=== PATIENT | male | born 1985 | race Caucasian/White ===

== ENCOUNTER 2016-10-24 08:31 | Inpatient (IN) | payer MEDICAID, OTHER ==
[2016-10-24] MEDS ORDERED: ONDANSETRON ODT 4 MG TAB PO STA (09:22)
[2016-10-24] MEDS ORDERED: ACETAMINOPHEN TAB 325 MG TAB PO STA (09:22)
--- NOTE | 2016-10-24 09:22 | ED ---
Psych HPI - General Chief Complaint: Psychiatric Symptoms Stated Complaint: mental health Time Seen by Provider: 10/24/16 08:46 Source: patient, RN notes reviewed Mode of arrival: ambulatory - History of Present Illness Initial Comments: Patient is a 30-year-old male presents to the emergency room for psychiatric evaluation. Patient states he has history depression. Patient states that he has been following up on and off with a counselor/psychiatrist. Patient states he hasn't followed up with anyone in a very long time. Patient states that he has a history of heroin abuse. Patient states that he was clean for a few years and then relapsed a few weeks ago. Patient states his family does not want talk to him anymore. Patient states he has been getting increasingly depressed over the past 3 weeks and is having thoughts on not wanting to live anymore. Patient states he's having thoughts on trying to overdose on heroin. Patient denies homicidal ideations. Patient denies visual or auditory hallucinations. Patient states the last time he did hear when was yesterday. Patient denies taking any other illegal drugs. Patient does state he smokes about a pack a day. Patient denies smoking marijuana. Patient denies alcohol use. Patient states he has history of seizures. Patient denies abdominal pain , chest pain, shortness of breath. Patient does admit he has a headache and nausea from withdrawing from heroin. - Related Data Home Medications Medication Instructions Recorded Confirmed Isoniazid 300 mg PO DAILY 10/24/16 10/24/16 levETIRAcetam [Keppra] 500 mg PO BID 10/24/16 10/24/16 Allergies Allergy/AdvReac Type Severity Reaction Status Date / Time No Known Allergies Allergy Verified 10/24/16 08:55 Review of Systems ROS Statement: Those systems with pertinent positive or pertinent negative responses have been documented in the HPI. ROS Other: All systems not noted in ROS Statement are negative. Past Medical History Past Medical History: GERD/Reflux, Seizure Disorder Additional Past Medical History / Comment(s): polysubstance drug abuse, smoker History of Any Multi-Drug Resistant Organisms: None Reported Date of last positivie culture/infection: 2010 MDRO Source:: RIGHT FOREARM Past Surgical History: Unable to Obtain Additional Past Surgical History / Comment(s): bilateral elbows Past Psychological History: No Psychological Hx Reported Smoking Status: Current every day smoker Past Alcohol Use History: None Reported Additional Past Alcohol Use History / Comment(s): Patient is a smoker of 1 pack or more per day since he was 15 years of age. He denies any alcohol use. Patient has history of polysubstance abuse and has been clean of heroin for 50 days until he used twice over the past 2 weeks. Patient is single. He has 1 daughter. Past Drug Use History: None Reported - Past Family History Father Additional Family Medical History / Comment(s): Patient states he does not know anything about his father. Mother Family Medical History: Hypertension Additional Family Medical History / Comment(s): Mother has history of hypertension and is age 53. Patient has 2 brothers and 2 sisters with no major medical problems. General Exam - General Exam Comments Initial Comments: Sitting in exam room in no acute distress. Limitations: no limitations General appearance: alert, in no apparent distress Head exam: Present: atraumatic, normocephalic, normal inspection Eye exam: Present: normal appearance ENT exam: Present: normal exam Neck exam: Present: normal inspection Respiratory exam: Present: normal lung sounds bilaterally. Absent: respiratory distress Cardiovascular Exam: Present: regular rate, normal rhythm, normal heart sounds GI/Abdominal exam: Present: soft, normal bowel sounds. Absent: distended, tenderness, guarding, rebound, rigid Extremities exam: Present: normal inspection Back exam: Present: normal inspection Neurological exam: Present: alert, oriented X3, CN II-XII intact, normal gait Psychiatric exam: Present: normal affect, depressed Skin exam: Present: warm, dry, intact, normal color. Absent: rash Course Vital Signs 10/24/16 08:46 Temperature 98.1 F Pulse Rate 97 Respiratory 18 Rate Blood Pressure 154/86 O2 Sat by Pulse 97 Oximetry Medical Decision Making - Medical Decision Making Patient is a 30-year-old male since emergency room for psych evaluation. Patient medically cleared to be evaluated by psych. Patient evaluated by psych and is currently pending admission. - Lab Data Lab Results 10/24/16 Range/Units 09:15 Urine Opiates Screen Detected H (NotDetected) Ur Oxycodone Screen Not Detected (NotDetected) Urine Methadone Screen Not Detected (NotDetected) Ur Propoxyphene Screen Not Detected (NotDetected) Ur Barbiturates Screen Not Detected (NotDetected) U Tricyclic Antidepress Not Detected (NotDetected) Ur Phencyclidine Scrn Not Detected (NotDetected) Ur Amphetamines Screen Not Detected (NotDetected) U Methamphetamines Scrn Not Detected (NotDetected) U Benzodiazepines Scrn Not Detected (NotDetected) Urine Cocaine Screen Not Detected (NotDetected) U Marijuana (THC) Screen Not Detected (NotDetected) Disposition Clinical Impression: Heroin abuse, Depression Disposition: ADMITTED IP TO THIS [facility] Condition: Stable Decision Date: 10/24/16
[2016-10-24] MEDS ORDERED: MAGNESIUM HYDROXIDE 2,400 MG/10 ML CUP PO PRN (12:27)
[2016-10-24 13:02] VITALS: BMI 27.1
[2016-10-24] MEDS: NICOTINE 21MG/24HR PATCH TRANSDERM SCH (15:10)
[2016-10-24] MEDS: LORazepam 1 MG TAB PO PRN (15:11)
[2016-10-24] MEDS: ACETAMINOPHEN TAB 325 MG TAB PO PRN (15:13)
[2016-10-24] MEDS: MAG HYDROX/AL HYDROX/SIMETH 30 ML CUP PO PRN (15:16)
[2016-10-24] MEDS: ONDANSETRON 4 MG TAB PO PRN (19:13)
[2016-10-24] MEDS: levETIRAcetam 500 MG TAB PO SCH (20:18)
[2016-10-25] MEDS: MAG HYDROX/AL HYDROX/SIMETH 30 ML CUP PO PRN (04:27)
[2016-10-25] MEDS: LORazepam 1 MG TAB PO PRN ×2 (04:27→13:12)
[2016-10-25] MEDS: ACETAMINOPHEN TAB 325 MG TAB PO PRN ×3 (04:28→17:42)
[2016-10-25] MEDS ORDERED: ISONIAZID 300 MG TABLET PO SCH (09:00)
[2016-10-25] MEDS: levETIRAcetam 500 MG TAB PO SCH ×2 (09:14→20:36)
[2016-10-25] MEDS: NICOTINE 21MG/24HR PATCH TRANSDERM SCH (09:16)
[2016-10-25 09:25] LABS: Basophils # (A) 0.1 k/uL (0-0.2); Basophils % (A) 1 %; CH 31.9; CHCM 34.8; Eosinophils # (A) 0.2 k/uL (0-0.7); Eosinophils % (A) 2 %; HDW 2.68; HGB 17.2 gm/dL (13.0-17.5); Luc # (Auto) 0.24; Luc % (Auto) 2; Lymphocytes # (A) 2.6 k/uL (1.0-4.8); Lymphocytes % (A) 25 %; MCH 31.1 pg (25.0-35.0); MCHC 33.8 g/dL (31.0-37.0); Mean Platelet Volume 7.3; Monocytes # (A) 0.5 k/uL (0-1.0); Monocytes % (A) 5 %; Neutrophils # (A) 7.1 k/uL (1.3-7.7); Neutrophils % (A) 67 %; RBC 5.54 m/uL (4.30-5.90); RDW 12.7 % (11.5-15.5); WBC 10.6 k/uL (3.8-10.6); WBC (Perox) 10.37
[2016-10-25 09:26] LABS: ALT 119 U/L (21-72); AST 73 U/L (17-59); Alkaline Phosphatase 55 U/L (38-126); Anion Gap 13 mmol/L; Blood Urea Nitrogen 18 mg/dL (9-20); Calcium 10.1 mg/dL (8.4-10.2); Carbon Dioxide 23 mmol/L (22-30); Chloride 105 mmol/L (98-107); Glucose 95 mg/dL (74-99); Non-African American GFR(MDRD) >60 (>60 ml/min/1.73 sqM); Potassium 5.2 mmol/L (3.5-5.1); Sodium 141 mmol/L (137-145); Total Bilirubin 2.1 mg/dL (0.2-1.3); Total Protein 8.7 g/dL (6.3-8.2)
[2016-10-25] MEDS: ISONIAZID 100 MG TABLET PO SCH (10:05)
[2016-10-25] MEDS ORDERED: cloNIDine HCL 0.2 MG TAB PO STA (10:40)
--- NOTE | 2016-10-25 11:40 | P.HP ---
Psychiatric H&P - . H&P Date: 10/25/16 History & Physical: IDENTIFYING DATA: Mr. Geller is a 30-year-old single male who has history of opiate use disorder.. HISTORY OF PRESENT ILLNESS: He presented to unit at the behest of his sister who completed a Petition/Application for Hospitalization. On the Petition she wrote "using heavy drugs, has attempted to commit suicide by overdose. I have been in contact with him for 2 weeks and his only gotten worse. He is currently homeless, and has lost the will to fight." He stated that he relapsed to heroin 1 month ago. He came to [place] from [facility] in order to gain readmission to the [facility]. He was in this program in 2013 was alleged that he wasable to remain abstinent from heroin for "about 2 years". He contacted the program but could not be admitted until he "stopped using heroin." He stated that he was unable to detox himself. He complained of feeling depressed and frustrated by his inability to stop the use of heroin. He talked about using heroin off and on since he was in his early 20s. His longest period of sobriety was 2 years after anticipation and the [facility] program. He stated he was abstinence for about 2 months before the recent relapse. He injects heroin on a daily basis spending approximately $ 50 per day. 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 He described the of a female friend from a heroin"a couple weeks ago" overdose as a contributor to his depression and feelings of hopelessness. He described thoughts of suicide but denied current suicidal intent or plan. He described depressive cognitions including hopelessness, helplessness and worthlessness. He denied psychotic symptoms such as auditory or visual hallucinations, ideas reference, thought insertion, thought broadcasting or thought control. He complained of anxiety that has worsened with the opiate withdrawal symptoms. He denied symptoms suggestive of panic attack. He denied obsessions or compulsions. During interview he was restless and complained of opiate withdrawal symptoms. PAST PSYCHIATRIC HISTORY: The only other psychiatric admission was to this unit in August 2015. His presentation was similar to the present. He complained of relapse to heroin after a two-month period of abstinence. He was depressed and having thoughts of overdosing on heroin. PAST MEDICAL HISTORY: He has a history of a seizure disorder treated with Keppra 500 mg by mouth twice a day. He does not remember when he last had a seizure. Aphysician her start isoniazid 300 mg per day. He does not remember the reason the physician prescribed the isoniazid. He has a history of hepatitis C (hepatitis A and B antibodies were negative). His total bilirubin , AST, ALT and alkaline phosphatase are elevated. His TSH was also low at 0.197. ALLERGIES: NO KNOWN DRUG ALLERGIES. SUBSTANCE USE HISTORY: He began using heroin when he was in his early 20s. He is had several relapses and remissions with one formal substance abuse treatment episode at [facility] in 2016. He moved to [place] after discharge from [facility] and he lived in a three-quarter house. His longest period of abstinence was following this participation in the [facility] program at [facility]. He denied the use of alcohol and marijuana. He has has a history of abuse of cocaine and benzodiazepines. His urine drug screen was positive for opiates. FAMILY PSYCHIATRIC/SUBSTANCE USE HISTORY: His father had history of alcohol use problems and he "believes" that his mother had a problem with "pills" in the past. He denied a family history of mental illness. LEGAL HISTORY: He denied that he is on probation, parole or has pending charges. According to the [facility] probate court docket he has convictions for malicious use of telecommunication and domestic violence ( second offense). SOCIAL HISTORY: He stated that he was born and raised in [place]. His parents are . He has 2 brothers and 2 sisters. He graduated from high school and attended classes and [employer] towards a clinical social worker's degree. He did not complete the program. He is single and has one child out of wedlock who is in the care of his aunt. He stated the baby's mother abandoned child and he is unable to care for her child. He is currently unemployed and has no stable income. He earns money by "odd jobs" working intermittently with for family or friends. He last held gainful employment when he was living in [place] MENTAL STATUS EXAM: He presented as a tall well-nourished male with male pattern balding. He was casually dressed. He attended to the interview and made eye contact. He had no distinguishing features or prominent physical abnormalities. He had a distressed facial expression. He was alert and oriented to person, place and time. He sniffled during the interview and frequently shifted his position in a chair. His speech was spontaneous with normal rate, rhythm and volume. He had no articulation difficulties. His affect was dysphoric. He denied current suicidal plan or intent. He denied homicidal ideation. He expressed depressive cognitions including hopelessness, helplessness and worthlessness. He ruminated about his substance use and his inability to maintain abstinence. He denied obsessions or compulsions. He did not express ideas of reference or paranoid ideation. His thinking was abstract and associations were coherent, logical and goal directed. He did not demonstrate perseveration, neologisms or blocking. He denied hallucinations and did not appear to be responding to internal stimuli. Global impression of intellect is average to above. He is aware of his mental health problems and his need for substance use treatment. The Clinical Opiate Withdrawal Scale his score was 10 consistent with mild symptoms of opiate withdrawal STRENGTHS: Supportive family, interest in substance abuse treatment, stable health. WEAKNESSES: Ongoing substance use problem, lack of income, lack of stable housing. IMPRESSION: Is a 30-year-old male who has a history of opiate use disorder. He presented to the unit with suicidal ideation and feelings of hopelessness and helplessness in relationship to relapse to heroin. He has mild to moderate opiate withdrawal symptoms. He is denying current suicidal ideation, plan or intent. He is interested in substance abuse treatment and has made inquiries into an [facility] and other [facility]. He will need a medical consult for evaluation of elevated liver functions and increased TSH as well as need for isoniazid. Once his opiate withdrawal symptoms wally he should be evaluated for need for antidepressant treatment. Social work to assist in referral to a substance abuse treatment program. PRINCIPLE DIAGNOSIS: Opiate withdrawal, opiate use disorder, opiate induced mood disorder, rule out major depressive disorder recurrent, lack of housing, lack of employment, lack of income RECOMMENDATION: Continue admissions inpatient psychiatric unit for treatment of opiate withdrawal, depression and suicidal ideation.. Begin clonidine 20 mg 4 times a day for treatment of opiate withdrawal symptoms and adjust the dose based upon tolerance and effectiveness. Continue lorazepam 1 mg 3 times a day when necessary for anxiety associated with the opiate withdrawal. Zofran 4 mg when necessary for nausea. Continue Keppra 500 mg by mouth twice a day for she is disorder. Continue isoniazid 300 mg by mouth daily until evaluated by human resources consultant np. Evaluate clinical status response to treatment daily basis. Encourage participation in therapeutic groups and activities. Social work to assist with arranging an appropriate aftercare including referral to a [facility]. Allergies Allergy/AdvReac Type Severity Reaction Status Date / Time No Known Allergies Allergy Verified 10/24/16 08:55 Vital Signs Temp 97.9 F 10/25/16 07:05 Pulse 111 H 10/25/16 07:05 Resp 18 10/25/16 07:05 BP 156/88 10/25/16 07:05 Pulse Ox 97 10/24/16 12:32 Intake & Output 10/24/16 10/25/16 10/25/16 18:59 06:59 18:59 Weight 95.736 kg Laboratory Last Values Urine Opiates Screen Detected (NotDetected) H 10/24/16 09:15 Ur Oxycodone Screen Not Detected (NotDetected) 10/24/16 09:15 Urine Methadone Screen Not Detected (NotDetected) 10/24/16 09:15 Ur Propoxyphene Screen Not Detected (NotDetected) 10/24/16 09:15 Ur Barbiturates Screen Not Detected (NotDetected) 10/24/16 09:15 U Tricyclic Antidepress Not Detected (NotDetected) 10/24/16 09:15 Ur Phencyclidine Scrn Not Detected (NotDetected) 10/24/16 09:15 Ur Amphetamines Screen Not Detected (NotDetected) 10/24/16 09:15 U Methamphetamines Scrn Not Detected (NotDetected) 10/24/16 09:15 U Benzodiazepines Scrn Not Detected (NotDetected) 10/24/16 09:15 Urine Cocaine Screen Not Detected (NotDetected) 10/24/16 09:15 U Marijuana (THC) Screen Not Detected (NotDetected) 10/24/16 09:15 10/25/16 09:03 10/25/16 09:59 10/25/16 10:30 10/25/16 11:07
[2016-10-25] MEDS: cloNIDine HCL 0.1 MG TAB PO SCH ×3 (13:09→21:42)
--- NOTE | 2016-10-25 14:07 | P.CONS ---
History of Present Illness - Reason for Consult Consult date: 10/25/16 Medical management - History of Present Illness This is a 30-year-old male. He does not have a primary care physician. He has a past medical history for GERD and takes omeprazole, seizure disorder and is on Keppra, MRSA skin and soft tissue infection to the right forearm 2010, hepatitis C untreated, latent TB, polysubstance abuse, tobacco use and dependence, anxiety, depression, PTSD. Patient states that he has been clean from heroin for one year and started using heroin every day. He denies following with a psychiatrist or counselor. He states that his sister brought him into [facility] emergency center for evaluation. He has been admitted to the mental health unit. TSH 0.197 and free T4 ordered. Urine drug screen was positive for opiates. Liver function tests elevated and will be repeated tomorrow. Review of Systems All systems: negative Constitutional: Denies chills, Denies fever Eyes: denies blurred vision, denies pain Ears, nose, mouth and throat: Denies headache, Denies sore throat Cardiovascular: Denies chest pain, Denies shortness of breath Respiratory: Denies cough Gastrointestinal: Denies abdominal pain, Denies diarrhea, Denies nausea, Denies vomiting Musculoskeletal: Denies myalgias Integumentary: Denies pruritus, Denies rash Neurological: Denies numbness, Denies weakness Psychiatric: Reports depression, Denies anxiety Endocrine: Denies fatigue, Denies weight change Past Medical History Past Medical History: GERD/Reflux, Seizure Disorder Additional Past Medical History / Comment(s): polysubstance drug abuse, hepatitis C, latent TB History of Any Multi-Drug Resistant Organisms: MRSA Year Discovered:: 2010 MDRO Source:: RIGHT FOREARM Past Surgical History: Orthopedic Surgery Additional Past Surgical History / Comment(s): right elbow Past Anesthesia/Blood Transfusion Reactions: No Reported Reaction Past Psychological History: Anxiety Smoking Status: Current every day smoker Past Alcohol Use History: None Reported Additional Past Alcohol Use History / Comment(s): Patient is a smoker of 1 pack or more per day since he was 15 years of age. He denies any alcohol use. Patient has history of polysubstance abuse and has been clean of heroin for 50 days until he used twice over the past 2 weeks. Patient is single. He has 1 daughter. Past Drug Use History: Heroin Additional Drug Use History / Comment(s): Herion and Xanax abuse - Past Family History Father Additional Family Medical History / Comment(s): Father is alive at age 58 with no major medical problems of the patient is aware of. Mother Family Medical History: Hypertension Additional Family Medical History / Comment(s): Mother has history of hypertension and is age 57. Patient has 2 brothers and 2 sisters with no major medical problems. Medications and Allergies Home Medications Medication Instructions Recorded Confirmed Type Isoniazid 300 mg PO DAILY 10/24/16 10/24/16 History levETIRAcetam [Keppra] 500 mg PO BID 10/24/16 10/24/16 History Allergies Allergy/AdvReac Type Severity Reaction Status Date / Time No Known Allergies Allergy Verified 10/24/16 08:55 Physical Exam Vitals: Vital Signs Temp Pulse Pulse Resp BP BP Pulse Ox 10/25/16 07:05 97.9 F 111 H 18 156/88 10/25/16 04:30 97.9 F 111 H 18 156/88 10/24/16 20:18 106 H 146/91 10/24/16 16:04 84 124/69 10/24/16 12:54 98.3 F 67 18 129/73 10/24/16 12:32 97.8 F 69 18 149/75 97 Gen: This is a 30-year-old male. He is cooperative and appears to be in no acute distress. HEENT: Head is atraumatic, normocephalic. Pupils equal, round. Sclerae is anicteric. NECK: Supple. No JVD. No lymphadenopathy. No thyromegaly. LUNGS: Clear to auscultation. No wheezes or rhonchi. No intercostal retractions. HEART: Regular rate and rhythm. No murmur. ABDOMEN: Soft. Bowel sounds are present. No masses. No tenderness. EXTREMITIES: No pedal edema. No calf tenderness. NEUROLOGICAL: Patient is awake, alert and oriented x3. Cranial nerves 2 through 12 are grossly intact. Results CBC & Chem 7: 10/25/16 08:48 10/25/16 08:48 Assessment and Plan Plan: 1. Depression recurrent in patient with history of anxiety, depression, PTSD. Patient admitted to the mental health unit. Continue current plan of care. 2. History of tobacco use and dependence. Continue nicotine patch. 3. History of heroin use. Continue as in #1. 4. Elevated liver function testing due to history of hepatitis C. Repeat CMP. 5. Latent TB. Continue Isoniazid. 6. History of GERD. Start omeprazole. 7. History of seizure disorder. Continue Keppra. 8. Low TSH. Free T4 ordered. Impression and plan of care have been directed as dictated by the signing physician. Victoria Townsend nurse practitioner acting as scribe for signing physician. Time with Patient: Greater than 30
[2016-10-25 21:50] VITALS: RESP 16
[2016-10-26 07:06] VITALS: TEMP 98
[2016-10-26] MEDS ORDERED: PANTOPRAZOLE 40 MG TABLET PO SCH (07:30)
[2016-10-26] MEDS: cloNIDine HCL 0.1 MG TAB PO SCH ×3 (08:28→12:34)
[2016-10-26] MEDS: ISONIAZID 100 MG TABLET PO SCH (08:28)
[2016-10-26] MEDS: levETIRAcetam 500 MG TAB PO SCH (08:28)
[2016-10-26] MEDS: ACETAMINOPHEN TAB 325 MG TAB PO PRN (08:30)
[2016-10-26] MEDS: LORazepam 1 MG TAB PO PRN (08:30)
[2016-10-26] MEDS: MAG HYDROX/AL HYDROX/SIMETH 30 ML CUP PO PRN (08:31)
[2016-10-26] MEDS: NICOTINE 21MG/24HR PATCH TRANSDERM SCH (08:33)
[2016-10-26 12:35] VITALS: BP 121/65; PULSE 107
[2016-10-26] MEDS ORDERED: QUEtiapine 25 MG TAB PO PRN (13:16)
--- NOTE | 2016-10-26 13:28 | P.DS ---
Providers Date of admission: 10/24/16 12:13 Attending physician: Lopez Herndon MD Consults: 10/24/16 12:27 Consult Physician Routine Consulting Provider: Lopez Johnson Consult Reason/Comments: history and physical Do you want consulting provider notified?: Yes Primary care physician: Stated None - Discharge Diagnosis(es) (1) Opiate withdrawal Current Visit: Yes Status: Acute Priority: Medium (2) Opioid use disorder, severe, dependence Current Visit: Yes Status: Chronic Priority: High Hospital Course: Mr. Geller is a 30-year-old single male who has history of opiate use disorder. He presented to unit at the behest of his sister who completed a Petition/Application for Hospitalization. On the Petition she wrote "using heavy drugs, has attempted to commit suicide by overdose. I have been in contact with him for 2 weeks and his only gotten worse. He is currently homeless, and has lost the will to fight." He stated that he relapsed to heroin 1 month ago. He came to [place] from [facility] in [facility]. He was in this program in 2014 was alleged that he wasable to remain abstinent from heroin for "about 2 years". He contacted the program but could not be admitted until he "stopped using heroin." He stated that he was unable to detox himself. He complained of feeling depressed and frustrated by his inability to stop the use of heroin. He talked about using heroin off and on since he was in his early 20s. His longest period of sobriety was 2 years after anticipation and the [facility] program. He stated he was abstinence for about 2 months before the recent relapse. He injects heroin on a daily basis spending approximately $ 50 per day. 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 He described the of a female friend from a heroin"a couple weeks ago" overdose as a contributor to his depression and feelings of hopelessness. He described thoughts of suicide but denied current suicidal intent or plan. He described depressive cognitions including hopelessness, helplessness and worthlessness. He denied psychotic symptoms such as auditory or visual hallucinations, ideas reference, thought insertion, thought broadcasting or thought control. He complained of anxiety that has worsened with the opiate withdrawal symptoms. He denied symptoms suggestive of panic attack. He denied obsessions or compulsions. During interview he was restless and complained of opiate withdrawal symptoms. The only other psychiatric admission was to this unit in August 2015. His presentation was similar to the present. He complained of relapse to heroin after a two-month period of abstinence. He was depressed and having thoughts of overdosing on heroin. He has a history of a seizure disorder treated with Keppra 500 mg by mouth twice a day. He does not remember when he last had a seizure. A physician her start isoniazid 300 mg per day for "latent" tuberculosis. He has a history of hepatitis C (hepatitis A and B antibodies were negative). His total bilirubin , AST, ALT and alkaline phosphatase are elevated. His TSH was also low at 0.197. He began using heroin when he was in his early 20s. He is had several relapses and remissions with one formal substance abuse treatment episode at [facility] in 2016. He moved to [place] after discharge from [facility] and he lived in a three-quarter house. His longest period of abstinence was following this participation in the [facility] program at [facility]. He denied the use of alcohol and marijuana. He has has a history of abuse of cocaine and benzodiazepines. His urine drug screen was positive for opiates. HOSPITAL COURSE. We admitted him to the psychiatric unit under the care of this typewriters functional tester. We provided a biopsychosocial assessment. At the time of admission he denied thoughts of or suicide. He did not meet judicial criteria for involuntary hospitalization but agreed to sign a voluntary admission. The design consultant gray tender completed the initial physical examination and medical history. The design consultant's diagnoses include tobacco use disorder, heroin use, elevated liver functions due to hepatitis C, latent TB, history of GERD, history of seizure disorder and low TSH. The design consultant ordered repeat CMP, free T4 and recommended omeprazole and continue Keppra and isoniazid. We treated the opiate withdrawal symptoms symptomatically with clonidine up to 0.3 mg 4 times a day, lorazepam 1 mg when necessary, Zofran and Lomotil. According to the Clinical Opiate Withdrawal Scale he experiences mild to moderate opiate withdrawal symptoms. Experience marked sedation and orthostasis with 0.3 mg of clonidine. foundry worker general assisted on referral to a [facility]. On the day of discharge they contacted [facility] and arrange for admission. He requested "something for anxiety" when he is discharged. I explained my reluctance to prescribed a benzodiazepine given his history of substance use problems. We discussed options and he agreed to a trial of Seroquel 25 mg by mouth twice a day when necessary for anxiety. At time of discharge he denied thoughts of or suicide. His expressed commitment to continue substance abuse treatment. Patient Condition at Discharge: Fair Plan - Discharge Summary New Discharge Prescriptions: Nicotine 21Mg/24Hr Patch [Habitrol] 1 patch TRANSDERM DAILY #14 patch QUEtiapine [SEROquel] 25 mg PO BID PRN #30 tab PRN Reason: Anxiety Discharge Medication List Isoniazid 300 mg PO DAILY 10/24/16 [History] levETIRAcetam [Keppra] 500 mg PO BID 10/24/16 [History] Nicotine 21Mg/24Hr Patch [Habitrol] 1 patch TRANSDERM DAILY #14 patch 10/26/16 [ Rx] QUEtiapine [SEROquel] 25 mg PO BID PRN #30 tab 10/26/16 [Rx] Follow up Appointment(s)/Referral(s): None,Stated [Primary Care Provider] - 1 Week Discharge Disposition: HOME SELF-CARE
[2016-10-26] MEDS: ONDANSETRON 4 MG TAB PO PRN (13:46)
== END 2016-10-26 14:35 | disposition home or self-care (01) | DRG 897 ==
LOC: EC 08:31 → 3MHU 12:13
PROVIDERS: ADMIT Psychiatry & Neurology Psychiatry; ATTEND Psychiatry & Neurology Psychiatry
PROC: HZ2ZZZZ Detoxification Services for Substance Abuse Treatment (ICD-10-PCS; principal; 2016-10-24)
DX: F11.23 Opioid dependence with withdrawal (principal); R45.851 Suicidal ideations; F33.9 Major depressive disorder, recurrent, unspecified; G40.909 Epilepsy, unspecified, not intractable, without status epilepticus; F41.9 Anxiety disorder, unspecified; F19.10 Other psychoactive substance abuse, uncomplicated; F43.10 Post-traumatic stress disorder, unspecified; B19.20 Unspecified viral hepatitis C without hepatic coma; R94.6 Abnormal results of thyroid function studies; K21.9 Gastro-esophageal reflux disease without esophagitis; R76.11 Nonspecific reaction to tuberculin skin test without active tuberculosis; F17.200 Nicotine dependence, unspecified, uncomplicated; Z16.24 Resistance to multiple antibiotics; Z71.51 Drug abuse counseling and surveillance of drug abuser; Z81.1 Family history of alcohol abuse and dependence; Z81.3 Family history of other psychoactive substance abuse and dependence; Z56.0 Unemployment, unspecified; Z86.19 Personal history of other infectious and parasitic diseases; Z59.0 Homelessness; Z82.49 Family history of ischemic heart disease and other diseases of the circulatory system; Z86.14 Personal history of Methicillin resistant Staphylococcus aureus infection; Z79.899 Other long term (current) drug therapy
CPT/HCPCS: 80053; 80306; 82075; 84439; 84443; 85025; 99285

== ENCOUNTER 2018-06-09 14:50 | Emergency (ER) | payer MEDICAID, OTHER ==
--- NOTE | 2018-06-09 15:43 | ED ---
General Adult HPI - General Chief complaint: Psychiatric Symptoms Stated complaint: mental health Time Seen by Provider: 06/09/18 15:35 Source: patient, RN notes reviewed Mode of arrival: ambulatory Limitations: no limitations - History of Present Illness Initial comments: Patient is a pleasant 32-year-old male presenting to the emergency department for depression and mental health evaluation. Patient has been depressed for a while, worse recently. Patient overdosed on 11 remuron last night it was his girlfriend's. Patient believes it was 15 mg. Patient admits to continued depression. Patient states he is depressed because of life. No new physical complaints. No hallucinations. No homicidal thoughts. Patient does inject heroin. No alcohol problems. - Related Data Home Medications Medication Instructions Recorded Confirmed levETIRAcetam [Keppra] 500 mg PO BID 10/24/16 06/09/18 Acetaminophen [Tylenol 8 Hour] 650 mg PO Q8H PRN 06/09/18 06/09/18 Gabapentin 800 mg PO TID 06/09/18 06/09/18 Allergies Allergy/AdvReac Type Severity Reaction Status Date / Time No Known Allergies Allergy Verified 06/09/18 15:44 Review of Systems ROS Statement: Those systems with pertinent positive or pertinent negative responses have been documented in the HPI. ROS Other: All systems not noted in ROS Statement are negative. Constitutional: Denies: fever Eyes: Denies: eye pain ENT: Denies: ear pain Respiratory: Denies: cough Cardiovascular: Denies: palpitations Endocrine: Denies: fatigue Gastrointestinal: Denies: abdominal pain Genitourinary: Denies: dysuria Musculoskeletal: Denies: back pain Skin: Denies: rash Neurological: Denies: headache Psychiatric: Reports: depression, suicidal thoughts Past Medical History Past Medical History: GERD/Reflux, Seizure Disorder Additional Past Medical History / Comment(s): polysubstance drug abuse, hepatitis C, latent TB History of Any Multi-Drug Resistant Organisms: MRSA Date of last positivie culture/infection: 2010 MDRO Source:: RIGHT FOREARM Past Surgical History: Orthopedic Surgery Additional Past Surgical History / Comment(s): right elbow Past Anesthesia/Blood Transfusion Reactions: No Reported Reaction Past Psychological History: Anxiety Smoking Status: Current every day smoker Past Alcohol Use History: None Reported Past Drug Use History: Heroin - Past Family History Father Additional Family Medical History / Comment(s): Father is alive at age 58 with no major medical problems of the patient is aware of. Mother Family Medical History: Hypertension Additional Family Medical History / Comment(s): Mother has history of hypertension and is age 57. Patient has 2 brothers and 2 sisters with no major medical problems. General Exam Limitations: no limitations General appearance: alert, in no apparent distress Head exam: Present: atraumatic Eye exam: Present: normal appearance, PERRL ENT exam: Present: normal oropharynx Neck exam: Present: normal inspection Respiratory exam: Present: normal lung sounds bilaterally Cardiovascular Exam: Present: regular rate, normal rhythm GI/Abdominal exam: Present: soft. Absent: tenderness Extremities exam: Present: normal inspection Neurological exam: Present: alert Psychiatric exam: Present: depressed Skin exam: Present: other (Some track dietz are present) Course Vital Signs 06/09/18 15:22 Temperature 98.7 F Pulse Rate 95 Respiratory 18 Rate Blood Pressure 127/78 O2 Sat by Pulse 98 Oximetry EKG Findings - EKG Comments: EKG Findings:: Normal sinus rhythm 77. VA 146. QRS 82. QT 360. QTC 407. Normal axis. No QRS. Inverted T waves leads V4 V5. Medical Decision Making - Medical Decision Making Patient was seen by mental health services with plan for admission or transfer. Positive clinical certificate completed. - Lab Data Result diagrams: 06/09/18 16:20 06/09/18 16:20 Lab Results 06/09/18 06/09/18 06/09/18 Range/Units 16:20 16:20 16:20 WBC 11.8 H (3.8-10.6) k/uL RBC 5.18 (4.30-5.90) m/uL Hgb 15.6 (13.0-17.5) gm/dL Hct 46.5 (39.0-53.0) % MCV 89.8 (80.0-100.0) fL MCH 30.2 (25.0-35.0) pg MCHC 33.6 (31.0-37.0) g/dL RDW 13.5 (11.5-15.5) % Plt Count 247 (150-450) k/uL Neutrophils % 73 % Lymphocytes % 21 % Monocytes % 3 % Eosinophils % 2 % Basophils % 0 % Neutrophils # 8.7 H (1.3-7.7) k/uL Lymphocytes # 2.4 (1.0-4.8) k/uL Monocytes # 0.4 (0-1.0) k/uL Eosinophils # 0.2 (0-0.7) k/uL Basophils # 0.0 (0-0.2) k/uL PT 11.1 (9.0-12.0) sec INR 1.2 H (<1.2) APTT 23.8 (22.0-30.0) sec Sodium 141 (137-145) mmol/L Potassium 3.5 (3.5-5.1) mmol/L Chloride 104 (98-107) mmol/L Carbon Dioxide 27 (22-30) mmol/L Anion Gap 10 mmol/L BUN 10 (9-20) mg/dL Creatinine 0.70 (0.66-1.25) mg/dL Est GFR (CKD-EPI)AfAm >90 (>60 ml/min/1.73 sqM) Est GFR (CKD-EPI)NonAf >90 (>60 ml/min/1.73 sqM) Glucose 103 H (74-99) mg/dL Calcium 9.4 (8.4-10.2) mg/dL Total Bilirubin 0.9 (0.2-1.3) mg/dL AST 33 (17-59) U/L ALT 62 (21-72) U/L Alkaline Phosphatase 50 (38-126) U/L Total Protein 7.6 (6.3-8.2) g/dL Albumin 4.3 (3.5-5.0) g/dL Urine Color Urine Appearance (Clear) Urine pH (5.0-8.0) Ur Specific [place] (1.001-1.035) Urine Protein (Negative) Urine Glucose (UA) (Negative) Urine Ketones (Negative) Urine Blood (Negative) Urine Nitrite (Negative) Urine Bilirubin (Negative) Urine Urobilinogen (<2.0) mg/dL Ur Leukocyte Esterase (Negative) Salicylates <1.0 mg/dL Urine Opiates Screen (NotDetected) Ur Oxycodone Screen (NotDetected) Urine Methadone Screen (NotDetected) Ur Propoxyphene Screen (NotDetected) Acetaminophen <10.0 ug/mL Ur Barbiturates Screen (NotDetected) U Tricyclic Antidepress (NotDetected) Ur Phencyclidine Scrn (NotDetected) Ur Amphetamines Screen (NotDetected) U Methamphetamines Scrn (NotDetected) U Benzodiazepines Scrn (NotDetected) Urine Cocaine Screen (NotDetected) U Marijuana (THC) Screen (NotDetected) Serum Alcohol <10 mg/dL 06/09/18 Range/Units 16:28 WBC (3.8-10.6) k/uL RBC (4.30-5.90) m/uL Hgb (13.0-17.5) gm/dL Hct (39.0-53.0) % MCV (80.0-100.0) fL MCH (25.0-35.0) pg MCHC (31.0-37.0) g/dL RDW (11.5-15.5) % Plt Count (150-450) k/uL Neutrophils % % Lymphocytes % % Monocytes % % Eosinophils % % Basophils % % Neutrophils # (1.3-7.7) k/uL Lymphocytes # (1.0-4.8) k/uL Monocytes # (0-1.0) k/uL Eosinophils # (0-0.7) k/uL Basophils # (0-0.2) k/uL PT (9.0-12.0) sec INR (<1.2) APTT (22.0-30.0) sec Sodium (137-145) mmol/L Potassium (3.5-5.1) mmol/L Chloride (98-107) mmol/L Carbon Dioxide (22-30) mmol/L Anion Gap mmol/L BUN (9-20) mg/dL Creatinine (0.66-1.25) mg/dL Est GFR (CKD-EPI)AfAm (>60 ml/min/1.73 sqM) Est GFR (CKD-EPI)NonAf (>60 ml/min/1.73 sqM) Glucose (74-99) mg/dL Calcium (8.4-10.2) mg/dL Total Bilirubin (0.2-1.3) mg/dL AST (17-59) U/L ALT (21-72) U/L Alkaline Phosphatase (38-126) U/L Total Protein (6.3-8.2) g/dL Albumin (3.5-5.0) g/dL Urine Color Yellow Urine Appearance Clear (Clear) Urine pH 6.0 (5.0-8.0) Ur Specific [place] 1.018 (1.001-1.035) Urine Protein Trace H (Negative) Urine Glucose (UA) Negative (Negative) Urine Ketones Negative (Negative) Urine Blood Negative (Negative) Urine Nitrite Negative (Negative) Urine Bilirubin Negative (Negative) Urine Urobilinogen 3.0 (<2.0) mg/dL Ur Leukocyte Esterase Negative (Negative) Salicylates mg/dL Urine Opiates Screen Detected H (NotDetected) Ur Oxycodone Screen Not Detected (NotDetected) Urine Methadone Screen Not Detected (NotDetected) Ur Propoxyphene Screen Not Detected (NotDetected) Acetaminophen ug/mL Ur Barbiturates Screen Not Detected (NotDetected) U Tricyclic Antidepress Not Detected (NotDetected) Ur Phencyclidine Scrn Not Detected (NotDetected) Ur Amphetamines Screen Not Detected (NotDetected) U Methamphetamines Scrn Not Detected (NotDetected) U Benzodiazepines Scrn Not Detected (NotDetected) Urine Cocaine Screen Detected H (NotDetected) U Marijuana (THC) Screen Not Detected (NotDetected) Serum Alcohol mg/dL Disposition Clinical Impression: Depression, Suicidal ideation Disposition: TRANSFER TO PSYCH HOSP/UNIT Is patient prescribed a controlled substance at d/c from ED?: No Referrals: Funmilayo Thomson MD [Primary Care Provider] - 1-2 days Decision Time: 20:03
[2018-06-09 16:30] LABS: Basophils % (A) 0 %; Eosinophils # (A) 0.2 k/uL (0-0.7); Eosinophils % (A) 2 %; HCT 46.5 % (39.0-53.0); HGB 15.6 gm/dL (13.0-17.5); Lymphocytes # (A) 2.4 k/uL (1.0-4.8); Lymphocytes % (A) 21 %; MCH 30.2 pg (25.0-35.0); MCHC 33.6 g/dL (31.0-37.0); MCV 89.8 fL (80.0-100.0); Mean Platelet Volume 7.2; Monocytes # (A) 0.4 k/uL (0-1.0); Monocytes % (A) 3 %; Neutrophils # (A) 8.7 k/uL (1.3-7.7); Neutrophils % (A) 73 %; Platelet Count 247 k/uL (150-450); RBC 5.18 m/uL (4.30-5.90); RDW 13.5 % (11.5-15.5); WBC 11.8 k/uL (3.8-10.6)
[2018-06-09 16:31] LABS: Appearance,Urine Clear (Clear); Bilirubin,Urine Negative (Negative); Blood,Urine Negative (Negative); Color,Urine Yellow; Glucose,Urine (UA) Negative (Negative); Ketones,Urine Negative (Negative); Leukocyte Esterase,Urine Negative (Negative); Nitrite,Urine Negative (Negative); Protein,Urine Trace (Negative); Specific Gravity,Urine 1.018 (1.001-1.035)
[2018-06-09 16:39] LABS: ALT 62 U/L (21-72); AST 33 U/L (17-59); Acetaminophen <10.0 ug/mL; Albumin 4.3 g/dL (3.5-5.0); Alcohol <10 mg/dL; Alkaline Phosphatase 50 U/L (38-126); Anion Gap 10 mmol/L; Blood Urea Nitrogen 10 mg/dL (9-20); Calcium 9.4 mg/dL (8.4-10.2); Carbon Dioxide 27 mmol/L (22-30); Chloride 104 mmol/L (98-107); Glucose 103 mg/dL (74-99); Potassium 3.5 mmol/L (3.5-5.1); Salicylate <1.0 mg/dL; Sodium 141 mmol/L (137-145); Total Bilirubin 0.9 mg/dL (0.2-1.3); Total Protein 7.6 g/dL (6.3-8.2)
[2018-06-09 16:41] LABS: Amphetamine Screen,Urine Not Detected (NotDetected); Barbiturate Screen,Urine Not Detected (NotDetected); Benzodiazepines Screen,Urine Not Detected (NotDetected); Cocaine Screen,Urine Detected (NotDetected); Methadone Screen, Urine Not Detected (NotDetected); Opiate Screen,Urine Detected (NotDetected); Oxycodone Screen, Urine Not Detected (NotDetected); Phencyclidine Screen,Urine Not Detected (NotDetected); Tricyclic Antidepressant,Urine Not Detected (NotDetected); Urn Cannabinoid Scrn Not Detected (NotDetected)
[2018-06-09 16:59] LABS: INR 1.2 (<1.2); Partial Thromboplastin Time 23.8 sec (22.0-30.0); Prothrombin Time 11.1 sec (9.0-12.0)
[2018-06-09] MEDS ORDERED: GABAPENTIN 400 MG CAP PO STA (20:19)
[2018-06-09] MEDS ORDERED: levETIRAcetam 500 MG TAB PO STA (20:19)
[2018-06-09] MEDS ORDERED: LORazepam 1 MG TAB PO STA (21:21)
[2018-06-10 03:24] VITALS: BP 120/70; PULSE 62; RESP 16; TEMP 98.8
== END 2018-06-10 04:10 ==
LOC: EC 14:50
DX: R45.851 Suicidal ideations (principal); F32.9 Major depressive disorder, single episode, unspecified; G40.909 Epilepsy, unspecified, not intractable, without status epilepticus; F41.9 Anxiety disorder, unspecified; F17.200 Nicotine dependence, unspecified, uncomplicated; Z79.899 Other long term (current) drug therapy; Z86.19 Personal history of other infectious and parasitic diseases; Z86.14 Personal history of Methicillin resistant Staphylococcus aureus infection
CPT/HCPCS: 36415; 93005; 80053; 85025; 85610; 85730; 81003; 80306; 83520 ×2; 99285; G0480; 80320; 82075

== ENCOUNTER 2019-06-05 08:15 | Inpatient (IN) | payer MEDICAID, OTHER ==
[2019-06-05 09:15] LABS: Amphetamine Screen,Urine Not Detected (NotDetected); Barbiturate Screen,Urine Not Detected (NotDetected); Benzodiazepines Screen,Urine Not Detected (NotDetected); Cocaine Screen,Urine Detected (NotDetected); Methadone Screen, Urine Not Detected (NotDetected); Opiate Screen,Urine Not Detected (NotDetected); Oxycodone Screen, Urine Not Detected (NotDetected); Phencyclidine Screen,Urine Not Detected (NotDetected); Tricyclic Antidepressant,Urine Not Detected (NotDetected); Urn Cannabinoid Scrn Not Detected (NotDetected)
--- NOTE | 2019-06-05 09:20 | ED ---
General Adult HPI - General Chief complaint: Psychiatric Symptoms Stated complaint: MENTAL HEALTH Time Seen by Provider: 06/05/19 08:25 Source: patient, RN notes reviewed, old records reviewed Mode of arrival: ambulatory Limitations: no limitations - History of Present Illness Initial comments: Patient is a 33-year-old male who admits to feeling suicidal. Patient reports that he took a large amount of heroin and cocaine on Saturday in attempt to overdose and kill himself. Patient reports that he was unsuccessful but continues to have thoughts of wanting to harm himself and overdosed. Patient states that he recently got out of rehab for cocaine and heroin abuse. He reports that he lives in this area, and his girlfriend brought him here. Roxanne villatoro denies any visual or auditory hallucinations. - Related Data Home Medications Medication Instructions Recorded Confirmed levETIRAcetam [Keppra] 500 mg PO BID 10/24/16 06/05/19 Gabapentin 600 mg PO BID 06/05/19 06/05/19 Allergies Allergy/AdvReac Type Severity Reaction Status Date / Time No Known Allergies Allergy Verified 06/05/19 09:19 Review of Systems ROS Statement: Those systems with pertinent positive or pertinent negative responses have been documented in the HPI. ROS Other: All systems not noted in ROS Statement are negative. Past Medical History Past Medical History: GERD/Reflux, Seizure Disorder Additional Past Medical History / Comment(s): polysubstance drug abuse, hepatitis C, latent TB History of Any Multi-Drug Resistant Organisms: MRSA Date of last positivie culture/infection: 2010 MDRO Source:: RIGHT FOREARM Past Surgical History: Orthopedic Surgery Additional Past Surgical History / Comment(s): right elbow Past Anesthesia/Blood Transfusion Reactions: No Reported Reaction Past Psychological History: Anxiety Smoking Status: Current every day smoker Past Alcohol Use History: None Reported Past Drug Use History: Cocaine, Heroin - Past Family History Father Additional Family Medical History / Comment(s): Father is alive at age 58 with no major medical problems of the patient is aware of. Mother Family Medical History: Hypertension Additional Family Medical History / Comment(s): Mother has history of hypertension and is age 57. Patient has 2 brothers and 2 sisters with no major medical problems. General Exam - General Exam Comments Initial Comments: Physical 33-year-old male. Alert and oriented 3. Limitations: no limitations General appearance: alert, in no apparent distress Head exam: Present: atraumatic, normocephalic, normal inspection Eye exam: Present: normal appearance, PERRL, EOMI. Absent: scleral icterus, conjunctival injection, periorbital swelling ENT exam: Present: normal exam Neck exam: Present: normal inspection. Absent: tenderness, meningismus, lymphadenopathy Respiratory exam: Present: normal lung sounds bilaterally. Absent: respiratory distress, wheezes, rales, rhonchi, stridor Cardiovascular Exam: Present: regular rate GI/Abdominal exam: Present: soft, normal bowel sounds. Absent: distended, tenderness, guarding, rebound, rigid Extremities exam: Present: normal inspection, full ROM, normal capillary refill. Absent: pedal edema, joint swelling, calf tenderness Back exam: Present: normal inspection Neurological exam: Present: alert, oriented X3, CN II-XII intact Psychiatric exam: Present: depressed, anxious, suicidal ideation (Patient has suicidal ideation with intent to overdose.). Absent: normal affect, normal mood Skin exam: Present: warm, dry, intact, normal color. Absent: rash Course Vital Signs 06/05/19 08:18 Temperature 98.3 F Pulse Rate 98 Respiratory 20 Rate Blood Pressure 149/93 O2 Sat by Pulse 99 Oximetry Medical Decision Making - Medical Decision Making This is a 33-year-old male with history of substance abuse. Recently was out of rehab last Saturday. He reports since that time he has been continuous heroin and cocaine. Patient reports that he attempted to overdose on Saturday. His last use of drugs was yesterday. Patient states that he does have an intent to overdose. Patient is with his girlfriend who dropped him off here. Patient denies any physical complaints at this time. No recent drug use for the past few hours. Patient is medically clear at This time for EPS evaluation. Patient was evaluated by psychiatric services nurse, and Patient will be admitted and patiently. - Lab Data Lab Results 06/05/19 Range/Units 08:40 Urine Opiates Screen Not Detected (NotDetected) Ur Oxycodone Screen Not Detected (NotDetected) Urine Methadone Screen Not Detected (NotDetected) Ur Propoxyphene Screen Not Detected (NotDetected) Ur Barbiturates Screen Not Detected (NotDetected) U Tricyclic Antidepress Not Detected (NotDetected) Ur Phencyclidine Scrn Not Detected (NotDetected) Ur Amphetamines Screen Not Detected (NotDetected) U Methamphetamines Scrn Not Detected (NotDetected) U Benzodiazepines Scrn Not Detected (NotDetected) Urine Cocaine Screen Detected H (NotDetected) U Marijuana (THC) Screen Not Detected (NotDetected) Disposition Clinical Impression: Suicidal ideation, Polysubstance abuse Disposition: TRANSFER TO PSYCH HOSP/UNIT Condition: Good Is patient prescribed a controlled substance at d/c from ED?: No Referrals: None,Stated [Primary Care Provider] - 1-2 days Time of Disposition: 12:12
[2019-06-05] MEDS ORDERED: MAGNESIUM HYDROXIDE 2,400 MG/10 ML CUP PO PRN (14:38)
[2019-06-05] MEDS ORDERED: ZIPRASIDONE 20 MG VIAL IM PRN (14:38)
[2019-06-05] MEDS ORDERED: ACETAMINOPHEN TAB 325 MG TAB PO PRN (14:38)
[2019-06-05] MEDS ORDERED: cloNIDine HCL 0.1 MG TAB PO PRN ×2 (14:48→15:42)
[2019-06-05] MEDS ORDERED: DICYCLOMINE 10 MG CAP PO PRN (14:49)
[2019-06-05 15:17] LABS: ALT 49 U/L (21-72); AST 36 U/L (17-59); African American GFR (CKD) >90 (>60 ml/min/1.73 sqM); Albumin 4.7 g/dL (3.5-5.0); Alkaline Phosphatase 62 U/L (38-126); Anion Gap 12 mmol/L; Blood Urea Nitrogen 12 mg/dL (9-20); Calcium 9.9 mg/dL (8.4-10.2); Carbon Dioxide 24 mmol/L (22-30); Chloride 106 mmol/L (98-107); Glucose 132 mg/dL (74-99); Potassium 3.5 mmol/L (3.5-5.1); Sodium 142 mmol/L (137-145); Total Bilirubin 0.7 mg/dL (0.2-1.3); Total Protein 8.1 g/dL (6.3-8.2)
[2019-06-05 15:20] LABS: Basophils # (A) 0.2 k/uL (0-0.2); Basophils % (A) 1 %; Eosinophils # (A) 0.3 k/uL (0-0.7); Eosinophils % (A) 2 %; HCT 48.6 % (39.0-53.0); HGB 16.8 gm/dL (13.0-17.5); Lymphocytes # (A) 2.8 k/uL (1.0-4.8); Lymphocytes % (A) 18 %; MCH 32.1 pg (25.0-35.0); MCHC 34.6 g/dL (31.0-37.0); Mean Platelet Volume 7.4; Monocytes # (A) 0.8 k/uL (0-1.0); Monocytes % (A) 5 %; Neutrophils # (A) 10.7 k/uL (1.3-7.7); Neutrophils % (A) 72 %; Platelet Count 277 k/uL (150-450); RBC 5.23 m/uL (4.30-5.90); RDW 12.8 % (11.5-15.5)
[2019-06-05] MEDS: NICOTINE 21MG/24HR PATCH TRANSDERM SCH (15:37)
[2019-06-05] MEDS: IBUPROFEN 600 MG TAB PO PRN (15:37)
--- NOTE | 2019-06-05 18:35 | P.CONS ---
History of Present Illness - Reason for Consult Consult date: 06/05/19 - History of Present Illness Patient is a 33-year-old male with a past medical history of polysubstance abuse, seizure disorder, and suicide attempts presented to the ED after a failed suicide attempt. The patient notes that he tried to overdose on heroin, but failed to do so and awoke after a short period of time. He was seen at the bedside in the mental health unit. He endorsed pain and warmth of his RUE at the site of his injections of heroin. He otherwise denied any active complaints including fever, chills, nausea, vomiting or chest, shortness of breath. He notes he has never had any clots in the past. Review of Systems Pertinent positives and negatives as discussed in HPI, a complete review of systems was performed and all other systems are negative. Past Medical History Past Medical History: GERD/Reflux, Seizure Disorder Additional Past Medical History / Comment(s): polysubstance drug abuse, hepatitis C, latent TB History of Any Multi-Drug Resistant Organisms: MRSA Year Discovered:: 2010 MDRO Source:: RIGHT FOREARM Past Surgical History: Orthopedic Surgery Additional Past Surgical History / Comment(s): right elbow Past Anesthesia/Blood Transfusion Reactions: No Reported Reaction Past Psychological History: Anxiety Smoking Status: Current every day smoker Past Alcohol Use History: None Reported Past Drug Use History: Cocaine, Heroin - Past Family History Father Additional Family Medical History / Comment(s): Father is alive at age 58 with no major medical problems of the patient is aware of. Mother Family Medical History: Hypertension Additional Family Medical History / Comment(s): Mother has history of hypertension and is age 57. Patient has 2 brothers and 2 sisters with no major medical problems. Medications and Allergies Home Medications Medication Instructions Recorded Confirmed Type levETIRAcetam [Keppra] 500 mg PO BID 10/24/16 06/05/19 History Gabapentin 600 mg PO BID 06/05/19 06/05/19 History Allergies Allergy/AdvReac Type Severity Reaction Status Date / Time No Known Allergies Allergy Verified 06/05/19 09:19 Physical Exam Vitals: Vital Signs Temp Pulse Resp BP Pulse Ox 06/05/19 14:20 98.2 F 96 18 140/89 98 06/05/19 08:18 98.3 F 98 20 149/93 99 Intake and Output 0906/05/19 06/05/19 06:59 14:59 22:59 Other: Weight 92.986 kg General: non toxic, no distress, appears at stated age, normal weight Derm: R forearm anterior aspect pain, warmth, with vein prominence Head: atraumatic, normocephalic, symmetric Eyes: EOMI, no lid lag, anicteric sclera, pupils equal round reactive to light ENT: Nose and ears atraumatic, no thrush, no pharyngeal erythema Neck: No thyromegaly, no cervical lymphadenopathy, trachea midline, supple Mouth: no lip lesion, mucus membranes moist Cardiovascular: S1S2 reg, no murmur, positive posterior tibial pulse bilateral, no edema, capillary refill less than 2 seconds Lungs: CTA bilateral, no rhonchi, no rales , no accessory muscle use Abdominal: soft, nontender to palpation, no guarding, no appreciable organomegaly, normal bowel sounds Ext: no gross muscle atrophy, muscle strength 5 out of 5 in all 4 extremities grossly, no contractures, Neuro: CN II-XI grossly intact, light touch intact all 4 extremities, finger to nose within normal limits, Psych: Alert, oriented Results CBC & Chem 7: 06/05/19 14:48 06/05/19 14:48 Labs: Abnormal Lab Results - Last 24 Hours (Table) 06/05/19 06/05/19 06/05/19 Range/Units 08:40 14:48 14:48 WBC 15.0 H (3.8-10.6) k/uL Neutrophils # 10.7 H (1.3-7.7) k/uL Glucose 132 H (74-99) mg/dL Urine Cocaine Screen Detected H (NotDetected) Assessment and Plan Plan: RUE superficial thrombophlebitis -Cold compresses -C/w Motrin Psychosis -As per psychiatry Polysubstance abuse (Heroin, Cocaine) -Advised on importance of cessation Seizure disorder -C/w home [facility] Thank you for allowing us to participate in the care of this patient. We will follow peripherally. Do not hesitate to contact us with questions. Someone can be reached from the [facility] hospitalist group at all hours of the day at [phone].
[2019-06-05] MEDS: GABAPENTIN 300 MG CAP PO SCH (20:13)
[2019-06-05] MEDS: BENZOCAINE/MENTHOL LOZENG 1 EACH LOZENGE MUCOUS MEM PRN (20:13)
[2019-06-05] MEDS: LORazepam 1 MG TAB PO SCH (20:13)
[2019-06-05] MEDS: levETIRAcetam 500 MG TAB PO SCH (20:13)
[2019-06-06 05:26] LABS: Albumin 4.5 g/dL (3.5-5.0); Bilirubin, Delta 0.3 mg/dL (0.0-0.2); Bilirubin,Unconjugated 0.3 mg/dL (0.0-1.1); Total Bilirubin 0.6 mg/dL (0.2-1.3); Total Protein 7.8 g/dL (6.3-8.2)
[2019-06-06 07:10] VITALS: BMI 24.2
[2019-06-06] MEDS: LORazepam 1 MG TAB PO SCH ×2 (08:07→20:24)
[2019-06-06] MEDS: GABAPENTIN 300 MG CAP PO SCH ×2 (08:07→20:24)
[2019-06-06] MEDS: NICOTINE 21MG/24HR PATCH TRANSDERM SCH (08:07)
[2019-06-06] MEDS: ONDANSETRON 4 MG TAB PO PRN ×2 (08:07→15:20)
[2019-06-06] MEDS: levETIRAcetam 500 MG TAB PO SCH ×2 (08:07→20:24)
[2019-06-06] MEDS: LOPERAMIDE 2 MG CAP PO PRN ×2 (08:09→15:20)
[2019-06-06] MEDS: IBUPROFEN 600 MG TAB PO PRN ×2 (08:09→15:20)
[2019-06-06 14:34] LABS: Hemoglobin A1C 4.8 % (4.0-6.0)
[2019-06-06] MEDS: ZOLPIDEM 5 MG TAB PO SCH (20:24)
--- NOTE | 2019-06-06 21:00 | P.HP ---
Psychiatric H&P - . H&P Date: 06/06/19 History & Physical: Allergies Allergy/AdvReac Type Severity Reaction Status Date / Time No Known Allergies Allergy Verified 06/05/19 09:19 Vital Signs Temp 98.7 F 06/06/19 06:59 Pulse 103 H 06/06/19 07:06 Resp 18 06/06/19 07:06 BP 142/80 06/06/19 07:06 Pulse Ox 98 06/05/19 14:20 Laboratory Last Values WBC 15.0 k/uL (3.8-10.6) H 06/05/19 14:48 RBC 5.23 m/uL (4.30-5.90) 06/05/19 14:48 Hgb 16.8 gm/dL (13.0-17.5) 06/05/19 14:48 Hct 48.6 % (39.0-53.0) 06/05/19 14:48 MCV 93.0 fL (80.0-100.0) 06/05/19 14:48 MCH 32.1 pg (25.0-35.0) 06/05/19 14:48 MCHC 34.6 g/dL (31.0-37.0) 06/05/19 14:48 RDW 12.8 % (11.5-15.5) 06/05/19 14:48 Plt Count 277 k/uL (150-450) 06/05/19 14:48 Neutrophils % 72 % 06/05/19 14:48 Lymphocytes % 18 % 06/05/19 14:48 Monocytes % 5 % 06/05/19 14:48 Eosinophils % 2 % 06/05/19 14:48 Basophils % 1 % 06/05/19 14:48 Neutrophils # 10.7 k/uL (1.3-7.7) H 06/05/19 14:48 Lymphocytes # 2.8 k/uL (1.0-4.8) 06/05/19 14:48 Monocytes # 0.8 k/uL (0-1.0) 06/05/19 14:48 Eosinophils # 0.3 k/uL (0-0.7) 06/05/19 14:48 Basophils # 0.2 k/uL (0-0.2) 06/05/19 14:48 Sodium 142 mmol/L (137-145) 06/05/19 14:48 Potassium 3.5 mmol/L (3.5-5.1) 06/05/19 14:48 Chloride 106 mmol/L (98-107) 06/05/19 14:48 Carbon Dioxide 24 mmol/L (22-30) 06/05/19 14:48 Anion Gap 12 mmol/L 06/05/19 14:48 BUN 12 mg/dL (9-20) 06/05/19 14:48 Creatinine 0.68 mg/dL (0.66-1.25) 06/05/19 14:48 Est GFR (CKD-EPI)AfAm >90 (>60 ml/min/1.73 sqM) 06/05/19 14:48 Est GFR (CKD-EPI)NonAf >90 (>60 ml/min/1.73 sqM) 06/05/19 14:48 Glucose 132 mg/dL (74-99) H 06/05/19 14:[address] Glu mg/dL 91 06/05/19 15:00 Hemoglobin A1c 4.8 % (4.0-6.0) 06/05/19 15:00 Calcium 9.9 mg/dL (8.4-10.2) 06/05/19 14:48 Total Bilirubin 0.7 mg/dL (0.2-1.3) 06/05/19 14:48 Conjugated Bilirubin 0.0 mg/dL (0.0-0.3) 06/05/19 05:14 Unconjugated Bilirubin 0.3 mg/dL (0.0-1.1) 06/05/19 05:14 Delta Bilirubin 0.3 mg/dL (0.0-0.2) H 06/05/19 05:14 AST 36 U/L (17-59) 06/05/19 14:48 ALT 49 U/L (21-72) 06/05/19 14:48 Alkaline Phosphatase 62 U/L (38-126) 06/05/19 14:48 Total Protein 8.1 g/dL (6.3-8.2) 06/05/19 14:48 Albumin 4.7 g/dL (3.5-5.0) 06/05/19 14:48 TSH 1.430 mIU/L (0.465-4.680) 06/05/19 05:14 Urine Opiates Screen Not Detected (NotDetected) 06/05/19 08:40 Ur Oxycodone Screen Not Detected (NotDetected) 06/05/19 08:40 Urine Methadone Screen Not Detected (NotDetected) 06/05/19 08:40 Ur Propoxyphene Screen Not Detected (NotDetected) 06/05/19 08:40 Ur Barbiturates Screen Not Detected (NotDetected) 06/05/19 08:40 U Tricyclic Antidepress Not Detected (NotDetected) 06/05/19 08:40 Ur Phencyclidine Scrn Not Detected (NotDetected) 06/05/19 08:40 Ur Amphetamines Screen Not Detected (NotDetected) 06/05/19 08:40 U Methamphetamines Scrn Not Detected (NotDetected) 06/05/19 08:40 U Benzodiazepines Scrn Not Detected (NotDetected) 06/05/19 08:40 Urine Cocaine Screen Detected (NotDetected) H 06/05/19 08:40 U Marijuana (THC) Screen Not Detected (NotDetected) 06/05/19 08:40 06/06/19 21:00 Chief complaint I got [facility]. I want to go to treatment center for substance use. History of presenting illness patient was released from [facility] on 05/29/19 and then kicked out of [facility] a few days later. He reports feeling sad, hopeless and worthless due to being [facility] around from [facility]. He says he is tired of living like that and therefore claims to have overdosed on heroin and cocaine on purpose. He reports lots of anxiety and PTSD . He reports to have witnessed lot of traumatic deaths and complains of flashbacks and nightmares. He reports havin g racing thoughts and mood swings with inability to stay calm. He claims to have stopped taking his prescribed psychotropic medications an year ago and was self medicating with heroin and other illicit drugs. Denies symptoms of psychosis. Past psychiatric history Reports being started on psychiatric medications following his first psychiatric hospitalization around the age of 32 after an suicidal attempt of cutting his wrist and overdosing on drugs. He reports to have not followed up with Out patient mental health treatment. Substance use history Reports history of using of pain pills, vicodins and heroin from the age of 20. He claims ot have quit using pain pills years ago. He reports using half gram to one gram of heroin /day. Has been to rehab programs multiple times. Legal problems None reported. Family psychiatric treatment history Denies Medical history Epilepsy Social history Born in [place], [place]. Raised by both parents. No history of abuse. Has two siblings. Completed high school. Single, has one child 14 years old. Unemployed. 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 Mental status exam 33 year old male. He appears his stated age in fair grooming and hygiene. He maintains good eye contact. His speech and thought process are goal directed. His mood is reported as sad and affect constricted. He denies current auditory or visual hallucinations. He denies paranoid ideations. He is laert and oriented x 4. He denies current active suicidal or homicidal ideations. His insight and judgement are poor. Diagnosis Bipolar disorder PTSD Heroin abuse Plan 33-year-old male admitted through emergency department for suicidal ideations Medicine consult for physical examination psychosocial evaluation. After discussing benefits and risks of medications he has agreed to take Zoloft, abirocio Will start him on zoloft 25mg po qday and abilify 5mgpo qday for mood stabilization. Ambien 5mg po qhs for insomnia, he says he does not want to take seroquel, trazadone, remeron for insomnia Monitor for symptoms will receive milieu therapy group therapy individual therapy occupational therapy recreational therapy and medication education. Discharge with outpatient follow-up. Referral to out patient substance use program Treatment goals: Medication stabilization Insight improvement encourage treatment adherence development of better coping skills
[2019-06-06] MEDS: BENZOCAINE/MENTHOL LOZENG 1 EACH LOZENGE MUCOUS MEM PRN (21:34)
[2019-06-07] MEDS: LORazepam 1 MG TAB PO SCH ×3 (08:16→20:19)
[2019-06-07] MEDS: ONDANSETRON 4 MG TAB PO PRN ×2 (08:16→21:37)
[2019-06-07] MEDS: levETIRAcetam 500 MG TAB PO SCH ×2 (08:16→20:19)
[2019-06-07] MEDS: ARIPiprazole 5 MG TAB PO SCH (08:16)
[2019-06-07] MEDS: IBUPROFEN 600 MG TAB PO PRN ×2 (08:16→20:19)
[2019-06-07] MEDS: SERTRALINE 25 MG TAB PO SCH (08:16)
[2019-06-07] MEDS: GABAPENTIN 300 MG CAP PO SCH ×2 (08:17→20:19)
[2019-06-07] MEDS: NICOTINE 21MG/24HR PATCH TRANSDERM SCH ×2 (08:22→10:50)
[2019-06-07] MEDS: BENZOCAINE/MENTHOL LOZENG 1 EACH LOZENGE MUCOUS MEM PRN (10:51)
--- NOTE | 2019-06-07 12:32 | P.PN ---
Progress Note - Text Progress Note Date: 06/07/19 Identifying Information 33-year-old male with history of Bipolar disorder, PTSD, treatment non compliance, polysubstance abuse, seizure disorder admitted to [facility] after purposeful heroin ovedose. Interval history Patient was seen today. He still complains of high Anxiety and depression and rates it at 6/10, 10 being worst. He claims to have had a night mare yesterday about his friend dying inside his car. He reports waking up in fear after the night mare. Patient was informed about prazosin for nightmares and can be started on it tomorrow if he continues to have problems with nightmares. He stated he is planning to leave tomorrow to rehab program. Mental status exam 33 year old male. He appears his stated age in fair grooming and hygiene. He maintains good eye contact. His speech and thought process are goal directed. His mood is reported as sad and affect constricted. He denies current auditory or visual hallucinations. He reports paranoid ideations related to his nightmare. He is alert and oriented x 4. He denies current active suicidal or homicidal ideations. His insight and judgement are improving. Diagnosis Bipolar disorder PTSD Heroin abuse Plan Continue zoloft 25mg po qday and abilify 5mgpo qday for depression, anxiety mood stabilization. Dose to titrated as tolerated. Ambien 5mg po qhs for insomnia, he says he does not want to take seroquel, trazadone, remeron for insomnia. Talked about being started on prazosin for nightmares if he continues to have difficulties
[2019-06-07] MEDS: MAG HYDROX/AL HYDROX/SIMETH 30 ML CUP PO PRN ×2 (16:56→21:37)
[2019-06-07] MEDS: ZOLPIDEM 5 MG TAB PO SCH (20:19)
[2019-06-08] MEDS: levETIRAcetam 500 MG TAB PO SCH ×2 (07:47→20:14)
[2019-06-08] MEDS: LORazepam 1 MG TAB PO SCH (07:47)
[2019-06-08] MEDS: NICOTINE 21MG/24HR PATCH TRANSDERM SCH (07:47)
[2019-06-08] MEDS: ARIPiprazole 5 MG TAB PO SCH (07:47)
[2019-06-08] MEDS: GABAPENTIN 300 MG CAP PO SCH ×2 (07:47→20:14)
[2019-06-08] MEDS: SERTRALINE 25 MG TAB PO SCH (07:48)
[2019-06-08] MEDS: IBUPROFEN 600 MG TAB PO PRN ×2 (07:49→17:10)
--- NOTE | 2019-06-08 12:39 | P.PN ---
Progress Note - Text Progress Note Date: 06/08/19 Interval History: Patient was seen taking part in group and was agreeable to speak to process description writer in the office. Patient was demanding and preoccupied with his medications and discharge. Patient claims that his mood has improved since being in the hospital long with his anxiety. He states that he is taking Ativan 3 times a day and Ambien at night for sleep. It was discussed with patient in detail about the need to titrate off this medication prior to discharge and the risks/tolerance of being on controlled substances while using recreational drugs, patient verbally understood and agreed. He states that he did sleep well last night. Patient claims that he is working with [facility] to get him a bed prior to discharge. Patient states that he has been going to groups and finding them unhelpful. At this time patient denies any suicidal or homical ideations, intent or plan. Patient denies any auditory, visual hallucinations and denies any paranoia or delusions. Patient denies any side effects from the medications and has been compliant with meds. Mental Status Exam: General Appearance: Patient appears to be stated age is alert, pleasant, and cooperative. Marginal hygiene and grooming. Wearing street clothing. Behavior: Patient is calmly seated without any agitated behavior. Speech: Patient's speech is fluent and nonpressured. Demanding tone. Mood/Affect: Mood is improving, affect is congruent and constricted. Suicidality/Homicidality: Patient denies having any suicidal or homicidal ideation intent or plan. Perceptions: Patient denies any auditory or visual hallucinations. Though content/process: There is no evidence of any delusional thought content and thought process is linear and goal-directed. Patient is preoccupied with discharge and medications. Memory and concentration: AOX3, grossly intact for the purposes of this session Judgment and insight: Superficial Assessment Bipolar disorder rule out substance-induced mood disorder History of PTSD Cocaine use disorder, currently in withdrawal Opioid use disorder, currently in withdrawal. Plan: -Patient continues to meet criteria for inpatient psychiatric admission for symptom stabilization and safety. Patient has signed adult voluntary form and medication consent and was placed in patient's chart. -Medications: Patient would like to remain on 25 mg Zoloft daily and Abilify 5 mg daily and refuses to have it increased for mood stabilization/anxiety. At this time patient is agreeable to have Ativan titrated off. Will order one dose for tonight of 1 mg then it will be discontinued. Will discontinue Ambien at this time. We'll start melatonin 5 mg nightly for sleep. -When necessary Geodon for agitation/aggression. -NRT - nicotine patch -SW on board for discharge planning. Likely discharge tomorrow if patient has [facility] rehab bed/disposition ready.
[2019-06-08] MEDS: MAG HYDROX/AL HYDROX/SIMETH 30 ML CUP PO PRN (17:11)
[2019-06-08] MEDS: LOPERAMIDE 2 MG CAP PO PRN (20:15)
[2019-06-08] MEDS ORDERED: MELATONIN 5 MG TABLET PO SCH (21:00)
[2019-06-08] MEDS ORDERED: LORazepam 1 MG TAB PO SCH (21:00)
[2019-06-09 06:47] VITALS: BP 140/68; PULSE 70; RESP 18; TEMP 97.8
[2019-06-09] MEDS: levETIRAcetam 500 MG TAB PO SCH (08:25)
[2019-06-09] MEDS: SERTRALINE 25 MG TAB PO SCH (08:25)
[2019-06-09] MEDS: ARIPiprazole 5 MG TAB PO SCH (08:25)
[2019-06-09] MEDS: GABAPENTIN 300 MG CAP PO SCH (08:25)
[2019-06-09] MEDS: NICOTINE 21MG/24HR PATCH TRANSDERM SCH (08:25)
--- NOTE | 2019-06-09 09:16 | P.DS ---
Providers Date of admission: 06/05/19 14:05 Expected date of discharge: 06/09/19 Attending physician: Feliz Hunt MD Consults: 06/05/19 14:38 Consult Physician Routine Consulting Provider: Ed Graham Consult Reason/Comments: history and physical Do you want consulting provider notified?: Yes Primary care physician: Stated None - Discharge Diagnosis(es) (1) Bipolar disorder Current Visit: Yes Status: Acute Priority: High (2) History of posttraumatic stress disorder (PTSD) Current Visit: Yes Status: Acute Priority: Medium (3) Cocaine use disorder Current Visit: Yes Status: Acute Priority: Medium (4) Opioid use disorder Current Visit: Yes Status: Acute Priority: Medium Hospital Course: Admission HPI: Mr. Geller was presented to the hospital after being released from [facility] on 05/29/19 and then kicked out of [facility] a few days later. He reports feeling sad, hopeless and worthless due to being bounced around from [facility]. He says he is tired of living like that and therefore claims to have overdosed on heroin and cocaine on purpose. He reports lots of anxiety and PTSD. He reports to have witnessed lot of traumatic deaths and complains of flashbacks and nightmares. He reports having racing thoughts and mood swings with inability to stay calm. He claims to have stopped taking his prescribed psychotropic medications an year ago and was self medicating with heroin and other illicit drugs. Denies symptoms of psychosis. Patient reports being started on psychiatric medications following his first psychiatric hospitalization aroun d the age of 32 after an suicidal attempt of cutting his wrist and overdosing on drugs. He reports to have not followed up with Out patient mental health treatment. Hospital course: Upon admission to the unit patient was initially depressed and suicidal also going through withdrawal from cocaine and opiates. Patient was however directable and agreeable to commence treatment. Patient got along well with other patients on the unit and followed unit protocol. Patient was compliant with the medications and denied any side effects throughout hospital course. Patient was started on Zoloft 25 mg daily for anxiety/depression and refused to have the dose titrated up. Patient was also agreeable to start Abilify 5 mg daily for mood stabilization and was not agreeable to have the medication adjus irvin. Patient spoke of his stressors and engaged in therapy both group and individual. Patient was also seen by medical team for history and physical exam. Patient was also initially started on Ativan for anxiety however was titrated off this medication prior to discharge. Patient was also started on initially Ambien and was titrated off this medication which was replaced by melatonin nightly for sleep. Patient was going through symptomatic opiate and cocaine withdrawal while on the unit and required PRN medications for stomach cramps, pain, anxiety and diarrhea. Throughout the course of the hospitalization patient gradually improved with regards to mood, anxiety, sleep and became future oriented with improved insight and judgment. Patient stated that he is committed to going to [facility] after being discharged from the hospital. On the day of discharge patient denied any suicidal or homicidal ideations intent or plan denied any auditory or visual hallucinations. Patient endorsed wanting to live for his health and his sobriety. The patient denied any access to guns or weapons. Patient denied any paranoia and did not endorse any delusions. Patient does have a significant history of substance abuse and was counseled on abstaining from all substances including alcohol and marijuana. Patient was also counseled on the medications and need for regular compliance and was encouraged to follow-up with their outpatient appointment for mental health and also for primary care. Prior to discharge a family meeting will be arranged by public health social worker to answer any questions and ensure safety upon discharge. Mental status exam: General Appearance: Patient appears to be stated age is alert, directable and cooperative. Patient is in no acute distress and has fair hygiene and grooming Behavior: Patient is calmly seated without any agitated behavior. Speech: Patient's speech is fluent and nonpressured. Mood/Affect: Patient reports their mood is "alright", affect is congruent and euthymic. Suicidality/Homicidality: Patient denies having any suicidal or homicidal ideation intent or plan. Perceptions: Patient denies any auditory or visual hallucinations. Though content/process: There is no evidence of any delusional thought content and thought process is linear and goal-directed. Memory and concentration: AOX3, grossly intact for the purposes of this session. Can spell "WORLD" backwards correctly. Judgment and insight: fair, improved Impression: Bipolar disorder, depressed History of PTSD Cocaine use disorder Opiate use disorder Plan: -Continue with discharge today as patient has improved and stabilized psychiatrically and is not currently an imminent threat to himself and/or others. -Continue medications: Zoloft 25 mg for mood/anxiety. Continue with Abilify 5 mg daily for mood stabilization. -Patient was counseled on the need for medication compliance and appropriate follow-up at mental health and also primary care for medical issues. Patient verbalized understanding and agreed. -Social work to arrange for and conduct family meeting to ensure safety upon discharge and answer any questions/concerns. Social work also to arrange for patients follow up appointments for intake at [facility] along with appointment for primary care provider. Patient stated that he is committed to going to [facility] after being discharged from the hospital and staying sober from recreational drugs. -Patient counseled on abstaining from recreational drugs and marijuana and alcohol. Was informed/educated on the adverse effects on their physical and mental health. Patient verbally understood and agreed. -Patient was instructed to return to the hospital or seek immediate medical care if their psychiatric or medical systems do worsen or reoccur. Allergies Allergy/AdvReac Type Severity Reaction Status Date / Time No Known Allergies Allergy Verified 06/05/19 09: Laboratory Results WBC 15.0 k/uL (3.8-10.6) H 06/05/19 14:48 RBC 5.23 m/uL (4.30-5.90) 06/05/19 14:48 Hgb 16.8 gm/dL (13.0-17.5) 06/05/19 14:48 Hct 48.6 % (39.0-53.0) 06/05/19 14:48 MCV 93.0 fL (80.0-100.0) 06/05/19 14:48 MCH 32.1 pg (25.0-35.0) 06/05/19 14:48 MCHC 34.6 g/dL (31.0-37.0) 06/05/19 14:48 RDW 12.8 % (11.5-15.5) 06/05/19 14:48 Plt Count 277 k/uL (150-450) 06/05/19 14:48 Neutrophils % 72 % 06/05/19 14:48 Lymphocytes % 18 % 06/05/19 14:48 Monocytes % 5 % 06/05/19 14:48 Eosinophils % 2 % 06/05/19 14:48 Basophils % 1 % 06/05/19 14:48 Neutrophils # 10.7 k/uL (1.3-7.7) H 06/05/19 14:48 Lymphocytes # 2.8 k/uL (1.0-4.8) 06/05/19 14:48 Monocytes # 0.8 k/uL (0-1.0) 06/05/19 14:48 Eosinophils # 0.3 k/uL (0-0.7) 06/05/19 14:48 Basophils # 0.2 k/uL (0-0.2) 06/05/19 14:48 Sodium 142 mmol/L (137-145) 06/05/19 14:48 Potassium 3.5 mmol/L (3.5-5.1) 06/05/19 14:48 Chloride 106 mmol/L (98-107) 06/05/19 14:48 Carbon Dioxide 24 mmol/L (22-30) 06/05/19 14:48 Anion Gap 12 mmol/L 06/05/19 14:48 BUN 12 mg/dL (9-20) 06/05/19 14:48 Creatinine 0.68 mg/dL (0.66-1.25) 06/05/19 14:48 Est GFR (CKD-EPI)AfAm >90 (>60 ml/min/1.73 sqM) 06/05/19 14:48 Est GFR (CKD-EPI)NonAf >90 (>60 ml/min/1.73 sqM) 06/05/19 14:48 Glucose 132 mg/dL (74-99) H 06/05/19 14:[address] Glu mg/dL 91 06/05/19 15:00 Hemoglobin A1c 4.8 % (4.0-6.0) 06/05/19 15:00 Calcium 9.9 mg/dL (8.4-10.2) 06/05/19 14:48 Total Bilirubin 0.7 mg/dL (0.2-1.3) 06/05/19 14:48 Conjugated Bilirubin 0.0 mg/dL (0.0-0.3) 06/05/19 05:14 Unconjugated Bilirubin 0.3 mg/dL (0.0-1.1) 06/05/19 05:14 Delta Bilirubin 0.3 mg/dL (0.0-0.2) H 06/05/19 05:14 AST 36 U/L (17-59) 06/05/19 14:48 ALT 49 U/L (21-72) 06/05/19 14:48 Alkaline Phosphatase 62 U/L (38-126) 06/05/19 14:48 Total Protein 8.1 g/dL (6.3-8.2) 06/05/19 14:48 Albumin 4.7 g/dL (3.5-5.0) 06/05/19 14:48 TSH 1.430 mIU/L (0.465-4.680) 06/05/19 05:14 Urine Opiates Screen Not Detected (NotDetected) 06/05/19 08:40 Ur Oxycodone Screen Not Detected (NotDetected) 06/05/19 08:40 Urine Methadone Screen Not Detected (NotDetected) 06/05/19 08:40 Ur Propoxyphene Screen Not Detected (NotDetected) 06/05/19 08:40 Ur Barbiturates Screen Not Detected (NotDetected) 06/05/19 08:40 U Tricyclic Antidepress Not Detected (NotDetected) 06/05/19 08:40 Ur Phencyclidine Scrn Not Detected (NotDetected) 06/05/19 08:40 Ur Amphetamines Screen Not Detected (NotDetected) 06/05/19 08:40 U Methamphetamines Scrn Not Detected (NotDetected) 06/05/19 08:40 U Benzodiazepines Scrn Not Detected (NotDetected) 06/05/19 08:40 Urine Cocaine Screen Detected (NotDetected) H 06/05/19 08:40 U Marijuana (THC) Screen Not Detected (NotDetected) 06/05/19 08:40 Vital Signs Temp 97.8 F 06/09/19 06:46 Pulse 70 06/09/19 06:46 Resp 18 06/09/19 06:46 BP 140/68 06/09/19 06:46 Pulse Ox 98 06/05/19 14:20 Patient Condition at Discharge: Stable Plan - Discharge Summary New Discharge Prescriptions: New ARIPiprazole [Abilify] 5 mg PO DAILY 28 Days tab Nicotine 21Mg/24Hr Patch [Habitrol] 1 patch TRANSDERM DAILY 14 Days patch Melatonin 5 mg PO HS 28 Days tablet Ibuprofen [Motrin] 600 mg PO QID PRN 28 Days tab PRN Reason: MODERATE Pain Sertraline [Zoloft] 25 mg PO DAILY #28 tab Continue Gabapentin 600 mg PO BID 14 Days tab levETIRAcetam [Keppra] 500 mg PO BID 28 Days tab Discharge Medication List ARIPiprazole [Abilify] 5 mg PO DAILY 28 Days tab 06/09/19 [Rx] Gabapentin 600 mg PO BID 14 Days tab 06/09/19 [Rx] Ibuprofen [Motrin] 600 mg PO QID PRN 28 Days tab 06/09/19 [Rx] Melatonin 5 mg PO HS 28 Days tablet 06/09/19 [Rx] Nicotine 21Mg/24Hr Patch [Habitrol] 1 patch TRANSDERM DAILY 14 Days patch 06/09/19 [Rx] Sertraline [Zoloft] 25 mg PO DAILY #28 tab 06/09/19 [Rx] levETIRAcetam [Keppra] 500 mg PO BID 28 Days tab 06/09/19 [Rx] Follow up Appointment(s)/Referral(s): intake,intake [Other] - 06/10/19 12:00 pm (Please bring at least 14 day supply of filled medications.) [facility] [NON-STAFF] - 1 Week Patient Instructions/Handouts: How to Stop Smoking (DC), Cocaine Abuse (DC), Bipolar Disorder (DC), Depression (DC), Nonepileptic Seizures (DC), Opioid Safety (DC) Activity/Diet/Wound Care/Special Instructions: Activity and diet as tolerated. No guns or weapons in the home. Refrain from alcohol and street drugs not prescribed by your physician. If in need of medication refills, please go to your primary care physician, or to your out patient psychiatric provider. Please take all medications as prescribed, and attend all after care appointments as scheduled. If in crisis, please call , or go the nearest ER for an evaluation. Discharge Disposition: HOME SELF-CARE
== END 2019-06-09 15:18 | disposition home or self-care (01) | DRG 885 ==
LOC: EC 08:15 → 3MHU 14:05
PROVIDERS: ADMIT Psychiatry & Neurology Psychiatry; ATTEND Psychiatry & Neurology Psychiatry
DX: F31.9 Bipolar disorder, unspecified (principal); F14.23 Cocaine dependence with withdrawal; F11.23 Opioid dependence with withdrawal; R45.851 Suicidal ideations; I80.8 Phlebitis and thrombophlebitis of other sites; G40.909 Epilepsy, unspecified, not intractable, without status epilepticus; F43.10 Post-traumatic stress disorder, unspecified; T40.5X2A Poisoning by cocaine, intentional self-harm, initial encounter; T40.1X2A Poisoning by heroin, intentional self-harm, initial encounter; K21.9 Gastro-esophageal reflux disease without esophagitis; G47.00 Insomnia, unspecified; F17.210 Nicotine dependence, cigarettes, uncomplicated; Z71.6 Tobacco abuse counseling; Z79.899 Other long term (current) drug therapy; Z91.5 Personal history of self-harm; Z91.19 Patient's noncompliance with other medical treatment and regimen; Z86.19 Personal history of other infectious and parasitic diseases; Z86.11 Personal history of tuberculosis; Z86.14 Personal history of Methicillin resistant Staphylococcus aureus infection; Y92.9 Unspecified place or not applicable; Z82.49 Family history of ischemic heart disease and other diseases of the circulatory system
CPT/HCPCS: 80053; 80076; 80306; 82075; 83036; 84443; 85025; 99285

== ENCOUNTER 2019-07-12 20:45 | Inpatient (IN) | payer MEDICAID, OTHER ==
[2019-07-12] MEDS ORDERED: SODIUM CHLORIDE 0.9% 1,000 ML IV STA ×2 (20:52→22:35)
--- NOTE | 2019-07-12 21:03 | ED ---
Psych HPI - General Chief Complaint: Psychiatric Symptoms Stated Complaint: Mental Health Time Seen by Provider: 07/12/19 20:51 Source: patient, RN notes reviewed, old records reviewed Mode of arrival: ambulatory - History of Present Illness Initial Comments: This is a 33-year-old male to ER for evaluation patient resents today for evaluation regards to suicidal thoughts and suicide attempt. Patient has drug abuse history including Xanax and cocaine. No alcohol. Denies heroin abuse. Patient took Xanax overdose 2 days ago was found by friend monitor no hospitalization. She has been hospitalized for psychiatric illness has no reasonable to live. Patient's plans include overdoses suspected suicide attempt MD Complaint: suicidal ideation, feels depressed -: unknown Associated Psychiatric Symptoms: depression, suicidal ideation History of same: Yes Quality: intermittent, getting worse Improves With: none Worsens With: none Associated Symptoms: denies other symptoms Treatments Prior to Arrival: placed on mental health hold If Self Harm: admits thoughts of self harm, has plan, has acted on plan - Related Data Home Medications Medication Instructions Recorded Confirmed Ergocalciferol [Vitamin D2] 50,000 unit PO Q7D 07/12/19 07/12/19 Previous Rx's Medication Instructions Recorded ARIPiprazole [Abilify] 5 mg PO DAILY 28 Days tab 06/09/19 Gabapentin 600 mg PO BID 14 Days tab 06/09/19 Ibuprofen [Motrin] 600 mg PO QID PRN 28 Days tab 06/09/19 Sertraline [Zoloft] 25 mg PO DAILY #28 tab 06/09/19 levETIRAcetam [Keppra] 500 mg PO BID 28 Days tab 06/09/19 Allergies Allergy/AdvReac Type Severity Reaction Status Date / Time No Known Allergies Allergy Verified 07/12/19 21:22 Review of Systems ROS Statement: Those systems with pertinent positive or pertinent negative responses have been documented in the HPI. ROS Other: All systems not noted in ROS Statement are negative. Past Medical History Past Medical History: GERD/Reflux, Liver Disease, Seizure Disorder Additional Past Medical History / Comment(s): polysubstance drug abuse, hepatitis C, latent TB History of Any Multi-Drug Resistant Organisms: MRSA Date of last positivie culture/infection: 2010 MDRO Source:: RIGHT FOREARM Past Surgical History: Orthopedic Surgery Additional Past Surgical History / Comment(s): right elbow Past Anesthesia/Blood Transfusion Reactions: No Reported Reaction Past Psychological History: Anxiety, Depression Smoking Status: Current every day smoker Past Alcohol Use History: None Reported Past Drug Use History: Cocaine, Heroin, IV Drug Use, Methamphetamine, Opiates - Past Family History Father Additional Family Medical History / Comment(s): Father is alive at age 58 with no major medical problems of the patient is aware of. Mother Family Medical History: Hypertension Additional Family Medical History / Comment(s): Mother has history of hypertension and is age 57. Patient has 2 brothers and 2 sisters with no major medical problems. General Exam Limitations: no limitations General appearance: alert, in no apparent distress, anxious Head exam: Present: atraumatic, normocephalic, normal inspection Eye exam: Present: normal appearance, PERRL, EOMI. Absent: scleral icterus, conjunctival injection, periorbital swelling ENT exam: Present: normal exam, mucous membranes moist Neck exam: Present: normal inspection. Absent: tenderness, meningismus, lymphadenopathy Respiratory exam: Present: normal lung sounds bilaterally. Absent: respiratory distress, wheezes, rales, rhonchi, stridor Cardiovascular Exam: Present: normal rhythm, tachycardia, normal heart sounds. Absent: systolic murmur, diastolic murmur, rubs, gallop, clicks GI/Abdominal exam: Present: soft, normal bowel sounds. Absent: distended, tenderness, guarding, rebound, rigid Extremities exam: Present: normal inspection, full ROM, normal capillary refill. Absent: tenderness, pedal edema, joint swelling, calf tenderness Back exam: Present: normal inspection Neurological exam: Present: alert, oriented X3, CN II-XII intact Psychiatric exam: Present: normal affect, normal mood Skin exam: Present: warm, dry, intact, normal color. Absent: rash Course Vital Signs 07/12/19 07/12/19 07/12/19 20:46 21:37 22:32 Temperature 98.3 F Pulse Rate 135 H 111 H 109 H Respiratory 20 18 18 Rate Blood Pressure 139/92 139/84 138/85 O2 Sat by Pulse 97 97 96 Oximetry - Reevaluation(s) Reevaluation #1: 07/12/19 21:17 Medical records reviewed including prior psychiatric Reevaluation #2: 07/12/19 22:35 Patient's medically clear for psychiatric evaluation Medical Decision Making - Medical Decision Making 33 male seen evaluated by psychiatry, patient will be admitted for psychiatric evaluation and treatment - Lab Data Result diagrams: 07/12/19 21:17 07/12/19 21:17 Lab Results 07/12/19 07/12/19 07/12/19 Range/Units 21:17 21:17 21:17 WBC 13.0 H (3.8-10.6) k/uL RBC 5.18 (4.30-5.90) m/uL Hgb 16.5 (13.0-17.5) gm/dL Hct 48.5 (39.0-53.0) % MCV 93.6 (80.0-100.0) fL MCH 31.8 (25.0-35.0) pg MCHC 34.0 (31.0-37.0) g/dL RDW 12.4 (11.5-15.5) % Plt Count 278 (150-450) k/uL Neutrophils % 73 % Lymphocytes % 20 % Monocytes % 5 % Eosinophils % 1 % Basophils % 0 % Neutrophils # 9.5 H (1.3-7.7) k/uL Lymphocytes # 2.5 (1.0-4.8) k/uL Monocytes # 0.6 (0-1.0) k/uL Eosinophils # 0.1 (0-0.7) k/uL Basophils # 0.0 (0-0.2) k/uL PT (9.0-12.0) sec INR (<1.2) Sodium 138 (137-145) mmol/L Potassium 4.0 (3.5-5.1) mmol/L Chloride 103 (98-107) mmol/L Carbon Dioxide 24 (22-30) mmol/L Anion Gap 11 mmol/L BUN 25 H (9-20) mg/dL Creatinine 0.93 (0.66-1.25) mg/dL Est GFR (CKD-EPI)AfAm >90 (>60 ml/min/1.73 sqM) Est GFR (CKD-EPI)NonAf >90 (>60 ml/min/1.73 sqM) Glucose 151 H (74-99) mg/dL Calcium 10.0 (8.4-10.2) mg/dL Total Bilirubin 1.4 H (0.2-1.3) mg/dL AST 66 H (17-59) U/L ALT 120 H (21-72) U/L Alkaline Phosphatase 66 (38-126) U/L Creatine Kinase 220 H (55-170) U/L Total Protein 8.5 H (6.3-8.2) g/dL Albumin 4.9 (3.5-5.0) g/dL Lipase 76 (23-300) U/L Urine Color Yellow Urine Appearance Clear (Clear) Urine pH 5.5 (5.0-8.0) Ur Specific [place] 1.033 (1.001-1.035) Urine Protein 1+ H (Negative) Urine Glucose (UA) Negative (Negative) Urine Ketones 3+ H (Negative) Urine Blood Negative (Negative) Urine Nitrite Negative (Negative) Urine Bilirubin 1+ H (Negative) Urine Urobilinogen 3.0 (<2.0) mg/dL Ur Leukocyte Esterase Negative (Negative) Urine WBC 5 (0-5) /hpf Ur Squamous Epith Cells 1 (0-4) /hpf Urine Mucus Many H (None) /hpf Salicylates <1.0 mg/dL Urine Opiates Screen Not Detected (NotDetected) Ur Oxycodone Screen Not Detected (NotDetected) Urine Methadone Screen Not Detected (NotDetected) Ur Propoxyphene Screen Not Detected (NotDetected) Acetaminophen <10.0 ug/mL Ur Barbiturates Screen Not Detected (NotDetected) U Tricyclic Antidepress Not Detected (NotDetected) Ur Phencyclidine Scrn Not Detected (NotDetected) Ur Amphetamines Screen Detected H (NotDetected) U Methamphetamines Scrn Detected H (NotDetected) U Benzodiazepines Scrn Detected H (NotDetected) Urine Cocaine Screen Detected H (NotDetected) U Marijuana (THC) Screen Detected H (NotDetected) Serum Alcohol <10 mg/dL 07/12/19 Range/Units 21:17 WBC (3.8-10.6) k/uL RBC (4.30-5.90) m/uL Hgb (13.0-17.5) gm/dL Hct (39.0-53.0) % MCV (80.0-100.0) fL MCH (25.0-35.0) pg MCHC (31.0-37.0) g/dL RDW (11.5-15.5) % Plt Count (150-450) k/uL Neutrophils % % Lymphocytes % % Monocytes % % Eosinophils % % Basophils % % Neutrophils # (1.3-7.7) k/uL Lymphocytes # (1.0-4.8) k/uL Monocytes # (0-1.0) k/uL Eosinophils # (0-0.7) k/uL Basophils # (0-0.2) k/uL PT 10.3 (9.0-12.0) sec INR 1.0 (<1.2) Sodium (137-145) mmol/L Potassium (3.5-5.1) mmol/L Chloride (98-107) mmol/L Carbon Dioxide (22-30) mmol/L Anion Gap mmol/L BUN (9-20) mg/dL Creatinine (0.66-1.25) mg/dL Est GFR (CKD-EPI)AfAm (>60 ml/min/1.73 sqM) Est GFR (CKD-EPI)NonAf (>60 ml/min/1.73 sqM) Glucose (74-99) mg/dL Calcium (8.4-10.2) mg/dL Total Bilirubin (0.2-1.3) mg/dL AST (17-59) U/L ALT (21-72) U/L Alkaline Phosphatase (38-126) U/L Creatine Kinase (55-170) U/L Total Protein (6.3-8.2) g/dL Albumin (3.5-5.0) g/dL Lipase (23-300) U/L Urine Color Urine Appearance (Clear) Urine pH (5.0-8.0) Ur Specific [place] (1.001-1.035) Urine Protein (Negative) Urine Glucose (UA) (Negative) Urine Ketones (Negative) Urine Blood (Negative) Urine Nitrite (Negative) Urine Bilirubin (Negative) Urine Urobilinogen (<2.0) mg/dL Ur Leukocyte Esterase (Negative) Urine WBC (0-5) /hpf Ur Squamous Epith Cells (0-4) /hpf Urine Mucus (None) /hpf Salicylates mg/dL Urine Opiates Screen (NotDetected) Ur Oxycodone Screen (NotDetected) Urine Methadone Screen (NotDetected) Ur Propoxyphene Screen (NotDetected) Acetaminophen ug/mL Ur Barbiturates Screen (NotDetected) U Tricyclic Antidepress (NotDetected) Ur Phencyclidine Scrn (NotDetected) Ur Amphetamines Screen (NotDetected) U Methamphetamines Scrn (NotDetected) U Benzodiazepines Scrn (NotDetected) Urine Cocaine Screen (NotDetected) U Marijuana (THC) Screen (NotDetected) Serum Alcohol mg/dL - EKG Data -: EKG Interpreted by Me (EKG shows sinus tachycardia rate of 119, MT 150, QRS 80, QTC 450) Disposition Clinical Impression: Heroin abuse, Depression, Opiate withdrawal, Suicidal ideation, Polysubstance abuse, Cocaine use disorder, Opioid use disorder Disposition: TRANSFER TO PSYCH HOSP/UNIT Condition: Fair Is patient prescribed a controlled substance at d/c from ED?: No
[2019-07-12 21:35] LABS: Basophils % (A) 0 %; Eosinophils # (A) 0.1 k/uL (0-0.7); Eosinophils % (A) 1 %; HCT 48.5 % (39.0-53.0); HGB 16.5 gm/dL (13.0-17.5); Lymphocytes # (A) 2.5 k/uL (1.0-4.8); Lymphocytes % (A) 20 %; MCH 31.8 pg (25.0-35.0); MCV 93.6 fL (80.0-100.0); Mean Platelet Volume 6.3; Monocytes # (A) 0.6 k/uL (0-1.0); Monocytes % (A) 5 %; Neutrophils # (A) 9.5 k/uL (1.3-7.7); Neutrophils % (A) 73 %; Platelet Count 278 k/uL (150-450); RBC 5.18 m/uL (4.30-5.90); RDW 12.4 % (11.5-15.5)
[2019-07-12 21:43] LABS: Appearance,Urine Clear (Clear); Bilirubin,Urine 1+ (Negative); Blood,Urine Negative (Negative); Color,Urine Yellow; Glucose,Urine (UA) Negative (Negative); Ketones,Urine 3+ (Negative); Leukocyte Esterase,Urine Negative (Negative); Mucus,Urine Many /hpf; Nitrite,Urine Negative (Negative); PH, Urine 5.5 (5.0-8.0); Protein,Urine 1+ (Negative); Specific Gravity,Urine 1.033 (1.001-1.035); Squamous Epithelial Cell,Urine 1 /hpf (0-4); WBC,Urine 5 /hpf (0-5)
[2019-07-12 21:48] LABS: ALT 120 U/L (21-72); AST 66 U/L (17-59); Acetaminophen <10.0 ug/mL; African American GFR (CKD) >90 (>60 ml/min/1.73 sqM); Albumin 4.9 g/dL (3.5-5.0); Alcohol <10 mg/dL; Alkaline Phosphatase 66 U/L (38-126); Anion Gap 11 mmol/L; Blood Urea Nitrogen 25 mg/dL (9-20); Carbon Dioxide 24 mmol/L (22-30); Chloride 103 mmol/L (98-107); Creatine Kinase 220 U/L (55-170); Glucose 151 mg/dL (74-99); Salicylate <1.0 mg/dL; Sodium 138 mmol/L (137-145); Total Bilirubin 1.4 mg/dL (0.2-1.3); Total Protein 8.5 g/dL (6.3-8.2)
[2019-07-12 21:50] LABS: Cocaine Screen,Urine Detected (NotDetected); Phencyclidine Screen,Urine Not Detected (NotDetected)
[2019-07-12 21:51] LABS: Amphetamine Screen,Urine Detected (NotDetected); Barbiturate Screen,Urine Not Detected (NotDetected); Benzodiazepines Screen,Urine Detected (NotDetected); Methadone Screen, Urine Not Detected (NotDetected); Opiate Screen,Urine Not Detected (NotDetected); Oxycodone Screen, Urine Not Detected (NotDetected); Tricyclic Antidepressant,Urine Not Detected (NotDetected); Urn Cannabinoid Scrn Detected (NotDetected)
[2019-07-12 21:58] LABS: Prothrombin Time 10.3 sec (9.0-12.0)
[2019-07-12] MEDS ORDERED: MAGNESIUM HYDROXIDE 2,400 MG/10 ML CUP PO PRN (22:42)
[2019-07-12] MEDS ORDERED: ACETAMINOPHEN TAB 325 MG TAB PO PRN (22:42)
[2019-07-12] MEDS ORDERED: ZIPRASIDONE 20 MG VIAL IM PRN (22:42)
[2019-07-13] MEDS: LORazepam 1 MG TAB PO PRN ×4 (00:36→21:48)
[2019-07-13] MEDS: MAG HYDROX/AL HYDROX/SIMETH 30 ML CUP PO PRN (00:36)
[2019-07-13] MEDS ORDERED: LOPERAMIDE 2 MG CAP PO PRN (01:17)
[2019-07-13] MEDS: levETIRAcetam 500 MG TAB PO SCH ×2 (08:25→21:47)
[2019-07-13] MEDS: GABAPENTIN 300 MG CAP PO SCH ×2 (08:25→21:47)
[2019-07-13] MEDS: IBUPROFEN 400 MG TAB PO PRN (08:27)
[2019-07-13] MEDS: DICYCLOMINE 10 MG CAP PO PRN (08:27)
[2019-07-13 09:32] LABS: Cholesterol 179 mg/dL (<200); HDL Cholesterol 33 mg/dL (40-60); LDL Cholesterol,Calculated 127 mg/dL (0-99); Triglycerides 96 mg/dL (<150)
[2019-07-13] MEDS: NICOTINE 21MG/24HR PATCH TRANSDERM SCH (11:42)
[2019-07-13] MEDS: OLANZapine 5 MG TAB PO SCH ×2 (15:58→21:48)
[2019-07-13 19:44] LABS: Hemoglobin A1C 5.2 % (4.0-6.0)
--- NOTE | 2019-07-13 21:20 | HP ---
HISTORY AND PHYSICAL DATE OF SERVICE: 07/13/2019. IDENTIFYING DATA: The patient is a 33-year-old male. He reports he has no permanent residence. He presented to the emergency room for evaluation. CHIEF COMPLAINT: The patient was depressed and suicidal. He said he had made a suicide attempt by taking an excessive amount of Xanax. HISTORY OF PRESENTING ILLNESS: The patient has had long-term psychiatric and substance abuse issues. He had a recent admission to this unit from 06/05 to 06/09/2019. I refer the reader to the admission note/discharge summary and progress notes of Dr. Yogesh Bazan and Sarah for details. He was discharged with diagnoses including bipolar disorder, history of posttraumatic stress disorder, cocaine use disorder. Discharge medications included Zoloft 25 mg a day and Abilify 5 mg a day. He was referred to [facility] for followup. Over the last month, the patient relapsed to substance use. He said that prior to his last psychiatric hospitalization, he was in [place] for 14 days, which would have been his only period of sobriety from all abusive substances over the last year or longer. He notes that his longest period of sobriety was 14 months in 2013 when he was in [place] and then discharged to [facility]. 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 He says that he ended up relapsing under circumstances involved in a relationship. He says he has essentially has been using some abusive substances of one sort or another since then. He notes that his drug of choice is heroin. On this admission urine drug screen on July 12, 2019 was positive for amphetamines, methamphetamine, benzodiazepines, cocaine and marijuana. The patient says that most significantly he has been doing Xanax of late and typically doing 4-6 mg a day. He said that recently he had just started a job. He tried to take Xanax on some kind of a controlled basis stating that "I felt I could handle it." He said very quickly it got out of control. He said that his current situation is typical for him in that it takes very little for him to relapse. He says that because of his persistent drug use and inability to stabilize his life and become productive, he has been increasingly hopeless. He says that recently he has been living on the street. He may stay at people's houses for very limited time. He says his last stable living situation was during the time that he was sober in 2013 and that he has not had stable living since then. He reports sleep is poor. Mood is down. He gets significant anxiety. He does not clearly identify panic symptoms. He is not currently reporting hallucinations or delusions. He suggests that he does get some flashbacks related to traumatic situations, though he did not go into detail. He did note one situations several years ago when he had a girlfriend who in the car that he was in. She of a heroin overdose during the time the 2 were using. The patient has had 2 previous psychiatric admissions including 10/25/2016 and 08/12/2015. I refer the reader to records of doctors Yarelis and Rajat for details. That is in addition to his 06/06/2019 admission here. He is admitted for further evaluation. SUBSTANCE USE HISTORY: As above. Again, I refer the reader to his recent admission for further details. Patient states that he has been receiving Vivitrol monthly injections. The patient notes that he first started using abusive substances at age 14. He said that he was prescribed Vicodin from an arm injury during sports and that may have led him into other abusive substances. Past medical history includes epilepsy and hepatitis C. He takes Keppra and Neurontin. He says he has had benzodiazepine related withdrawal seizures as well as seizures outside of any drug use. 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 REVIEW OF SYMPTOMS: Review of systems as per medical consultation. FAMILY AND SOCIAL HISTORY: The patient has 2 daughters, one age 14. He says he is close to that daughter. He also has a daughter who is 2 weeks hold. He is estranged from the mother's of his 2 children. He did make reference to being in a current relationship, though he says the two of them are maintaining some distance due to his substance use issues. The patient graduated from high school and did some college work at [employer]. He notes that he considered going into social work, though he has an interest in doing technical school in heating and cooling, which he says holds much interest for him. The patient notes that he has a sister 9 years his elder and a brother 6 years his elder. His parents split up when he was 1 years old. He said his sister lived with mother and he and his brother lived with father. He said that due to the age difference between him and his brother, he was essentially an only child. His father remarried and during teenage years, both were in the house, though he said he had very few limits from parents. He notes that his father worked at the [employer] and subsequently was a reefer truck driver. He seemed to suggest that his father had substance use issues. MENTAL STATUS EXAM: Patient gave good eye contact. Psychomotor activity was quite restless. He bounced his legs continuously throughout the interview. He shifted some in his chair. He answered questions appropriately. His thoughts were clear, coherent, and goal directed. He was spontaneous and interactive. His affect was intense. He was significantly depressed. He described great distress regarding his continued substance use issues. There was no indication of thought disorder. On cognitive exam, he was oriented x3 and alert. Recent remote memory was intact. Attention fair. Insight and judgment fair. Fund of knowledge average or slightly above average. STRENGTHS: Include kashia intelligence and reasonable understanding of substance use issues. WEAKNESS: Includes vulnerability to relapse. ASSESSMENT: This 33-year-old male has a primary disorder of substance use, namely polysubstance dependence. He described significant mood disorder and traumatic issues from his past though all of that is secondary to his ongoing substance use issues. His support system is uncertain and appears to be quite limited. Whether or not he would benefit from referral to a substance use program remains to be seen. DIAGNOSES: 1. Polysubstance dependence including opioids, amphetamines, methamphetamine, benzodiazepine and marijuana. 2. Posttraumatic stress disorder. 3. Depression. 4. Epilepsy. 5. Hepatitis C. RECOMMENDATIONS: Patient will be admitted for comprehensive medical psychiatric and psychosocial evaluation. We will engage the patient in individual and group therapeutic activities. I had an extensive discussion with the patient regarding withdrawal related issues. At this point, he will be on Ativan 1 mg 3 times a day. I discussed that he likely would need to be on a tapering dose over the next 7 days to be completely off Ativan altogether. I will start the patient on Zyprexa 5 mg 3 times a day. The aim of Zyprexa is to help reduce physiologic stress response relating to acute substance withdrawal. I discussed that other psychotropic medications are not likely to have much benefit in early withdrawal and that the main issue would be to help with management to get him through at least 6 weeks of withdrawal, where he would be at a point to be better evaluated for longer-term psychiatric issues. Again whether or not he would benefit from referral to inpatient substance abuse, a substance abuse program would be part of his current evaluation. I had an extensive discussion with the patient regarding the expectations and course of withdrawal. I encouraged the patient towards therapeutic activities including a therapeutic walking program to help manage some withdrawal issues. The patient did question whether or not the clonidine might be of benefit, which it could be. We will get his vital signs q.4 hours to monitor blood pressure issues as finding Clonidine could be useful for withdrawal at least from opioids. We will focus on stabilization and discharge planning. ANGELINAL / IJN: [id number] /
--- NOTE | 2019-07-13 23:03 | P.HPIM ---
History of Present Illness H&P Date: 07/13/19 Patient is 33-year-old male with a PMH of seizure disorder, polysubstance abuse, depression, and tobacco abuse who presented to the ED after an attempted overdose with Xanax. The patient notes that he has been having difficulties with his life and was upset and attempted to with suicide by taking a handful of Xanax. The patient notes that this occurred on of last week (4 days prior to presentation), after which one of his friends found him somewhat confused, though the patient states that he was able to stop him from activating EMS. The patient then subsequently presented to the ED on Saturday. At time of interview, he denied any active physical complaints. Denied chest pain, SOB, fever, chills, nausea, or vomiting. Review of Systems Pertinent positives and negatives as discussed in HPI, a complete review of systems was performed and all other systems are negative. Past Medical History Past Medical History: GERD/Reflux, Liver Disease, Seizure Disorder Additional Past Medical History / Comment(s): polysubstance drug abuse, hepatitis C, latent TB History of Any Multi-Drug Resistant Organisms: MRSA Date of last positivie culture/infection: 2010 MDRO Source:: RIGHT FOREARM Past Surgical History: Orthopedic Surgery Additional Past Surgical History / Comment(s): right elbow Past Anesthesia/Blood Transfusion Reactions: No Reported Reaction Past Psychological History: Anxiety, Depression Smoking Status: Current every day smoker Past Alcohol Use History: None Reported Additional Past Alcohol Use History / Comment(s): Patient is a smoker of 1 pack or more per day since he was 15 years of age. He denies any alcohol use. Patie nt admits to battling with polysubstance use for several years. He admits to injecting cocaine most recently. Pt. also admits that he was using fentanyl recently while taking 4-6tablets of xanax per day. Past Drug Use History: Cocaine, Heroin, IV Drug Use, Methamphetamine, Opiates Additional Drug Use History / Comment(s): Herion and Xanax abuse - Past Family History Father Additional Family Medical History / Comment(s): Father is alive at age 58 with no major medical problems of the patient is aware of. Mother Family Medical History: Hypertension Additional Family Medical History / Comment(s): Mother has history of hypertension and is age 57. Patient has 2 brothers and 2 sisters with no major medical problems. Medications and Allergies Home Medications Medication Instructions Recorded Confirmed Type ARIPiprazole [Abilify] 5 mg PO DAILY 28 Days tab 06/09/19 07/12/19 Rx Gabapentin 600 mg PO BID 14 Days tab 06/09/19 07/12/19 Rx Ibuprofen [Motrin] 600 mg PO QID PRN 28 Days tab 06/09/19 07/12/19 Rx Sertraline [Zoloft] 25 mg PO DAILY #28 tab 06/09/19 07/12/19 Rx levETIRAcetam [Keppra] 500 mg PO BID 28 Days tab 06/09/19 07/12/19 Rx Ergocalciferol [Vitamin D2] 50,000 unit PO Q7D 07/12/19 07/12/19 History Allergies Allergy/AdvReac Type Severity Reaction Status Date / Time No Known Allergies Allergy Verified 07/13/19 00:22 Physical Exam Vitals: Vital Signs Temp Pulse Pulse Resp BP BP Pulse Ox 07/13/19 18:13 97 07/13/19 08:31 123 H 20 129/76 07/12/19 23:45 98.1 F 106 H 16 147/83 98 07/12/19 23:29 97.4 F L 90 16 130/80 97 Intake and Output 07/13/19 07/13/19 07/13/19 06:59 14:59 22:59 Other: Weight 90.265 kg General: non toxic, no distress, appears at stated age, normal weight Derm: no unusual rashes/lesions no unusual ecchymoses, warm, dry Head: atraumatic, normocephalic, symmetric Eyes: EOMI, no lid lag, anicteric sclera, pupils equal round reactive to light ENT: Nose and ears atraumatic, no thrush, no pharyngeal erythema Neck: No thyromegaly, no cervical lymphadenopathy, trachea midline, supple Mouth: no lip lesion, mucus membranes moist Cardiovascular: S1S2 reg, no murmur, positive posterior tibial pulse bilateral, no edema, capillary refill less than 2 seconds Lungs: CTA bilateral, no rhonchi, no rales , no accessory muscle use Abdominal: soft, nontender to palpation, no guarding, no appreciable organomegaly, normal bowel sounds Ext: no gross muscle atrophy, muscle strength 5 out of 5 in all 4 extremities grossly, no contractures, Neuro: CN II-XI grossly intact, light touch intact all 4 extremities, finger to nose within normal limits, Psych: Alert, oriented, appropriate affect Results CBC & Chem 7: 07/12/19 21:17 07/12/19 21:17 Labs: Abnormal Lab Results - Last 24 Hours (Table) 07/13/19 Range/Units 08:50 LDL Cholesterol, Calc 127 H (0-99) mg/dL HDL Cholesterol 33 L (40-60) mg/dL Thrombosis Risk Factor Assmnt - Choose All That Apply Any of the Below Risk Factors Present?: No Other Risk Factors: No Other congenital or acquired thrombophilia - If yes, enter type in comment: No Thrombosis Risk Factor Assessment Level: Very Low Risk Assessment and Plan Plan: Leukocytosis -Likely due to acute stress -No signs of infection at this time Abnormal LFTs -Likely due to substance abuse -Monitor for now Hx of seizure disorder -C/w home meds Polysubstance abuse -Advised on importance of cessation -Monitor for signs of withdrawal Tobacco abuse -Advised on importance of cessation -Nicotine patch prn Suicidal ideation -As per psychiatry Thank you for allowing us to participate in the care of this patient. We will follow peripherally. Do not hesitate to contact us with questions. Someone can be reached from the [facility] hospitalist group at all hours of the day at [phone].
[2019-07-14] MEDS: levETIRAcetam 500 MG TAB PO SCH ×2 (08:17→21:26)
[2019-07-14] MEDS: NICOTINE 21MG/24HR PATCH TRANSDERM SCH (08:17)
[2019-07-14] MEDS: OLANZapine 5 MG TAB PO SCH ×2 (08:17→17:30)
[2019-07-14] MEDS: GABAPENTIN 300 MG CAP PO SCH ×3 (08:17→21:24)
[2019-07-14] MEDS: LORazepam 1 MG TAB PO PRN (08:19)
[2019-07-14] MEDS: IBUPROFEN 400 MG TAB PO PRN (08:19)
--- NOTE | 2019-07-14 10:32 | P.HP ---
Psychiatric H&P - . H&P Date: 07/14/19 History & Physical: IDENTIFYING Data: Kash Geller is a 33-year-old single male who currently lives three-quarter house, unemployed after he lost his job last week, has psychiatric history of bipolar disorder and polysubstance use disorder mainly opioid and benzodiazepines use disorders, and medical history of hepatitis see and seizure disorder. The patient has been admitted to our inpatient psychiatric services after been transferred from [facility]. Patient was initially self- referred to emergency room after he had suicidal attempt by overdose on Xanax last . The patient has been admitted on voluntary basis to our service. CHIEF COMPLAINT: "I overdosed on Xanax last ." HISTORY OF PRESENT ILLNESS: Patient reports couldn't recall what happened after he overdosed on Xanax last they'll probably Saturday afternoon when somebody found him and his family and girlfriend encouraged him to go to the hospital seeking help for depression. Patient reports has been abusing Xanax for the last 2 weeks prior to his overdose and his decision for overdosing on Xanax was very impulsive in context of multiple social and psychological stressors including relapse and using drugs and not able to maintain sobriety, not having his stable house, and relationship problem with his girlfriend. Patient reports that most probably he overdosed on 10-20" bars" of Xanax. Patient was not good historian and he couldn't give details related to his suicidal attempt and his mood symptoms. He admitted for using heroin since he was 20 but recently he has been trying to stop using and he completed inpatient rehab last April and for the last 2 months he has been living in [facility] as a transition. Patient reports he has been clean from heroin or any other opiates for the last 2 months and he is currently receiving Vivitrol injection every month but he couldn't remember when was the last time he received her last injection. Patient admitted for using meth amphetamine, coca ine, and Xanax prior to his suicidal attempt but he couldn't recall when was the day of his last use. He admitted for IV use of meth amphetamine and cocaine. Urine drug screen when he came to the ER was positive for methamphetamine, amphetamine, cocaine, marijuana, and benzodiazepines. Patient reports he has been dealing with severe mood swings that sometimes he is happy and functioning and suddenly would have severe depression even sometimes with suicidal thoughts. Patient reports episodes of feeling extremely excited with minimal sleep and person energy with impulsive behavior which could last for a few hours. He reports periods of time with severe depression, isolating himself, feeling hopeless, worthless, and suicidal and these depression times could last for days. Patient reports for most of his life feels severe unremitting anxiety, always worried out of proportion to the situations. He admits for always has racing thoughts and feels very tense. Patient reports physical symptoms of anxiety including racing heart, stomach cramps, sweating and twitching. He denies any history of panic attacks but In reports symptoms of flashbacks, nightmares and intrusive thoughts related to prior psychological traumas. Patient denies any current or previous history of auditory/visual hallucinations, and denies any paranoid ideation. No bizarre disorganized thoughts or behavior noticed, know delusions could be elicited. Patient reports history of using heroin to excess despite adversely affected different aspects of his life. Patient reports history of increased use of hero in and benzodiazepines over time, and his habit became out of control and compulsive. He reports was able to achieve sobriety from heroin for the last few months but he relapses on Xanax for the last 2-3 weeks. Patient denies any history of self-injurious behavior, chronic feeling of abandonment or rejection by others, or feeling empty emotionally. PAST PSYCHIATRIC HISTORY: Previous diagnoses: Bipolar disorder Previous psychiatric hospitalizations: Reports 2 previous psychiatric hospitalization at this unit, first time was in 2017, and second time was May 2019. According to chart review, the patient has 3 previous hospitalizations at this unit first time was in 2014, second time in 2016, and the third time was May 2019. Previous suicide attempts: Admitted for previous suicide attempts, but refused to talk about it. Previous outpatient psychiatric treatment: Reports connected with [facility] for outpatient psychiatric treatment. Current psychiatric medications: Reports was maintained on Abilify and Zoloft before this admission, but he didn't feel any improvement with these medications.. Previous medication trials: Reports previous trial of Trentilix. SUBSTANCE ABUSE HISTORY: Nicotine: Smokes 1 pack per day for more than 10 years. Alcohol: His using any alcohol. Opioid: Started to use opiates which she mainly heroin at age 20. Admitted for history of IV drug use with history of using about 1 g daily and he was using at least 4-5 times weekly. Cocaine/ other stimulants: Admitted for using cocaine and meth amphetamine only when available. Reports IV use of both meth amphetamine and cocaine. Cannabis: Reports history of using marijuana but not recently. He denies any recent use of marijuana even his most recent drug screen was positive for it. Benzodiazepines: Reports has been using benzodiazepines on and off for most of his life but mainly with heroin and not as a primary drug. He reports for the last 2-3 weeks he relapsed again using Xanax after a friend brought it to him. He denies any intention to use again and wanting to return back to sobriety. Reports history of substance use disorder treatment including most recent inpatient rehab treatment at [place] April 2019 for 28 days. Patient is currently at [facility] as a transition for housing. Social History: Patient was born in [facility] and raised up by his father after his mother left the house at that time. Housing: Currently lives in a transitional housing. The patient is currently in a relationship with his girlfriend and has 2 weeks old daughter from her. Work history: Currently an unemployed after he lost his job last week. 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 Education: Patient reports attaining an educational level of high school diploma and some college. Children: Patient reports having 2 children; a 14-year-old daughter and 2 weeks older daughter. Legal history: Denies any history of legal problems History of psychological trauma: Reports psychologically traumatized from few incidents and that close friend is dyed around him including ex-girlfriend who from overdoses in 2013 while they were using together. Also another friend from overdose while they were using together in 2017. FAMILY HISTORY: Psychiatric Illness: Denies any family history of mental illness. Substance abuse: Denies any family history of addiction or substance use disorders. Completed Suicides: Denies any family history of suicide. Medical History: Hepatitis C. Seizure disorder MENTAL STATUS EVALUATION: Appearance: Appears stated age, not well groomed, average body built, and no specific features. Gait/ posture: Steady gait, normal arm swinging, no abnormal movements, with relaxed posture. Attitude and Behavior: Not fully cooperative, intermittent eye contact during course of interview. Motor Activity: Decreased psychomotor activity. Speech: spontaneous, normal rate, rhythm, and articulation. Normal volume. Not pressured. Language: Articulating, naming objects and repeat phrases. Mood: Depressed Affect: Constricted. Thought process: Linear, goal-directed. Association: Not circumstantial, not tangential. Thought content: No delusions, no current suicidal thoughts, denies homicidal thoughts, denies intentions, or plans. Perception: Denies any auditory or visual hallucinations Alertness: No impairment. Concentration: Impaired Orientation: Oriented to time, place, person, and situation Insight regarding psychiatric condition: Limited Judgment regarding daily activities and social situation: Limited Strengths: Stable general medical condition. Willing to get better. Accessible treatment. Challenges: Poor coping skills. Housing. Limited social support. Allergies Allergy/AdvReac Type Severity Reaction Status Date / Time No Known Allergies Allergy Verified 07/13/19 00:22 Vital Signs Temp 97.8 F 07/14/19 06:41 Pulse 61 07/14/19 06:41 Resp 14 07/14/19 06:41 BP 125/65 07/14/19 06:41 Pulse Ox 98 07/12/19 23:45 Review of Lab results: Laboratory Last Values WBC 13.0 k/uL (3.8-10.6) H 07/12/19 21:17 RBC 5.18 m/uL (4.30-5.90) 07/12/19 21:17 Hgb 16.5 gm/dL (13.0-17.5) 07/12/19 21:17 Hct 48.5 % (39.0-53.0) 07/12/19 21:17 MCV 93.6 fL (80.0-100.0) 07/12/19 21:17 MCH 31.8 pg (25.0-35.0) 07/12/19 21:17 MCHC 34.0 g/dL (31.0-37.0) 07/12/19 21:17 RDW 12.4 % (11.5-15.5) 07/12/19 21:17 Plt Count 278 k/uL (150-450) 07/12/19 21:17 Neutrophils % 73 % 07/12/19 21:17 Lymphocytes % 20 % 07/12/19 21:17 Monocytes % 5 % 07/12/19 21:17 Eosinophils % 1 % 07/12/19 21:17 Basophils % 0 % 07/12/19 21:17 Neutrophils # 9.5 k/uL (1.3-7.7) H 07/12/19 21:17 Lymphocytes # 2.5 k/uL (1.0-4.8) 07/12/19 21:17 Monocytes # 0.6 k/uL (0-1.0) 07/12/19 21:17 Eosinophils # 0.1 k/uL (0-0.7) 07/12/19 21:17 Basophils # 0.0 k/uL (0-0.2) 07/12/19 21:17 PT 10.3 sec (9.0-12.0) 07/12/19 21:17 INR 1.0 (<1.2) 07/12/19 21:17 Sodium 138 mmol/L (137-145) 07/12/19 21:17 Potassium 4.0 mmol/L (3.5-5.1) 07/12/19 21:17 Chloride 103 mmol/L (98-107) 07/12/19 21:17 Carbon Dioxide 24 mmol/L (22-30) 07/12/19 21:17 Anion Gap 11 mmol/L 07/12/19 21:17 BUN 25 mg/dL (9-20) H 07/12/19 21:17 Creatinine 0.93 mg/dL (0.66-1.25) 07/12/19 21:17 Est GFR (CKD-EPI)AfAm >90 (>60 ml/min/1.73 sqM) 07/12/19 21:17 Est GFR (CKD-EPI)NonAf >90 (>60 ml/min/1.73 sqM) 07/12/19 21:17 Glucose 151 mg/dL (74-99) H 07/12/19 21:[address] Glu mg/dL 103 07/13/19 08:50 Hemoglobin A1c 5.2 % (4.0-6.0) 07/13/19 08:50 Calcium 10.0 mg/dL (8.4-10.2) 07/12/19 21:17 Total Bilirubin 1.4 mg/dL (0.2-1.3) H 07/12/19 21:17 AST 66 U/L (17-59) H 07/12/19 21:17 ALT 120 U/L (21-72) H 07/12/19 21:17 Alkaline Phosphatase 66 U/L (38-126) 07/12/19 21:17 Creatine Kinase 220 U/L (55-170) H 07/12/19 21:17 Total Protein 8.5 g/dL (6.3-8.2) H 07/12/19 21:17 Albumin 4.9 g/dL (3.5-5.0) 07/12/19 21:17 Triglycerides 96 mg/dL (<150) 07/13/19 08:50 Cholesterol 179 mg/dL (<200) 07/13/19 08:50 LDL Cholesterol, Calc 127 mg/dL (0-99) H 07/13/19 08:50 HDL Cholesterol 33 mg/dL (40-60) L 07/13/19 08:50 Lipase 76 U/L (23-300) 07/12/19 21:17 Urine Color Yellow 07/12/19 21:17 Urine Appearance Clear (Clear) 07/12/19 21:17 Urine pH 5.5 (5.0-8.0) 07/12/19 21:17 Ur Specific Roby 1.033 (1.001-1.035) 07/12/19 21:17 Urine Protein 1+ (Negative) H 07/12/19 21:17 Urine Glucose (UA) Negative (Negative) 07/12/19 21:17 Urine Ketones 3+ (Negative) H 07/12/19 21:17 Urine Blood Negative (Negative) 07/12/19 21:17 Urine Nitrite Negative (Negative) 07/12/19 21:17 Urine Bilirubin 1+ (Negative) H 07/12/19 21:17 Urine Urobilinogen 3.0 mg/dL (<2.0) 07/12/19 21:17 Ur Leukocyte Esterase Negative (Negative) 07/12/19 21:17 Urine WBC 5 /hpf (0-5) 07/12/19 21:17 Ur Squamous Epith Cells 1 /hpf (0-4) 07/12/19 21:17 Urine Mucus Many /hpf (None) H 07/12/19 21:17 Salicylates <1.0 mg/dL 07/12/19 21:17 Urine Opiates Screen Not Detected (NotDetected) 07/12/19 21:17 Ur Oxycodone Screen Not Detected (NotDetected) 07/12/19 21:17 Urine Methadone Screen Not Detected (NotDetected) 07/12/19 21:17 Ur Propoxyphene Screen Not Detected (NotDetected) 07/12/19 21:17 Acetaminophen <10.0 ug/mL 07/12/19 21:17 Ur Barbiturates Screen Not Detected (NotDetected) 07/12/19 21:17 U Tricyclic Antidepress Not Detected (NotDetected) 07/12/19 21:17 Ur Phencyclidine Scrn Not Detected (NotDetected) 07/12/19 21:17 Ur Amphetamines Screen Detected (NotDetected) H 07/12/19 21:17 U Methamphetamines Scrn Detected (NotDetected) H 07/12/19 21:17 U Benzodiazepines Scrn Detected (NotDetected) H 07/12/19 21:17 Urine Cocaine Screen Detected (NotDetected) H 07/12/19 21:17 U Marijuana (THC) Screen Detected (NotDetected) H 07/12/19 21:17 Serum Alcohol <10 mg/dL 07/12/19 21:17 Formulation/Summary: The patient has presented with history of episodes of mood disturbances that could be biologically predisposed by the drug use. Current precipitating factors include: Note taking psychiatric medications, Poor compliance with treatment. Perpetuating factors: Relapse and using Xanax, housing problems, conflict with girlfriend. Protective biological factors: Willing to get better, having 2 children including 2 weeks old daughter. Assessment: Unspecified bipolar disorder. Rule out bipolar disorder type II. Opioid use disorder, severe in early remission. Sedative hypnotics use disorder, severe. Rule out sedative hypnotics withdrawal. Rule out cocaine use disorder severe. Rule out methamphetamine use disorder severe. Rule out cannabis use disorder. Hepatitis C. Seizure disorder. TREATMENT PLAN/RECOMMENDATIONS: Medical Decision making: The patient presented with severe mood disturbance, depression after he had suicidal attempt by overdose on Xanax. The patient at high risk to hurt himself if he is not in the inpatient setting. The patients psychiatric symptoms are not stable and he needs further management of psychiatric medications and further planning for discharge. Therefore, inpatient level of care is needed. Continue the patient inpatient for safety. Continue the patient under 15 minutes safe check for safety. Continue treatment of bipolar disorder, and substance use disorder. Psych education regarding his diagnosis, and treatment option. The patient will also be provided with individual therapy, group therapy, substance abuse counseling, gain insight, and coping skills. Consider medical consultation if any acute medical issue arise. Medications: Continue Zyprexa with the changing the dose to 5 mg twice a day a.m. and afternoon, and 10 mg at bedtime for mood stabilization. Continue Neurontin and increase the dose to 600 mg 3 times a day for anxiety and post acute withdrawal syndrome. Continue Ativan 1 mg 3 times a day daily as needed with the plan to gradually taper off until discontinued. Start Remeron 7.5 mg at bedtime to help was a depression and sleep problems. Prognosis is fair, contingent on patient has been compliant with his medications and has been followed up closely with outpatient mental health provider after discharge. The patient will be assessed on daily basis for his depression, suicidal ideation, and will be discharged back to his outpatient mental health provider upon stabilization. EXPECTED LENGTH OF STAY: 5-7 days. 07/14/19 10:31
[2019-07-14] MEDS: LORazepam 1 MG TAB PO SCH ×2 (15:03→21:24)
[2019-07-14] MEDS: DICYCLOMINE 10 MG CAP PO PRN (18:36)
[2019-07-14] MEDS ORDERED: MIRTAZAPINE 15 MG TAB PO SCH (21:00)
[2019-07-14] MEDS: OLANZapine 10 MG TAB PO SCH (21:24)
[2019-07-15] MEDS: GABAPENTIN 300 MG CAP PO SCH ×3 (08:32→21:14)
[2019-07-15] MEDS: NICOTINE 21MG/24HR PATCH TRANSDERM SCH (08:32)
[2019-07-15] MEDS: OLANZapine 5 MG TAB PO SCH ×2 (08:32→17:18)
[2019-07-15] MEDS: LORazepam 1 MG TAB PO SCH ×3 (08:32→23:28)
[2019-07-15] MEDS: levETIRAcetam 500 MG TAB PO SCH ×2 (08:32→21:09)
[2019-07-15] MEDS: VORTIOXETINE HYDROBROMIDE 10 MG TABLET PO SCH (11:11)
[2019-07-15] MEDS: hydrOXYzine PAMOATE 25 MG CAP PO PRN ×2 (11:12→17:18)
--- NOTE | 2019-07-15 11:58 | P.PN ---
Progress Note - Text Progress Note Date: 07/15/19 Chief complaint: "I still couldn't sleep last night " Subjective: The patient has been seen today as follow-up, chart reviewed, case discussed with the treatment team. Patient slept less than 2-3 hours last night, and was very interrupted sleep. Also, patient reports difficulty to good sleep. Patient has not been going to groups and other unit activities. Patient reports poor appetite. Patient minimizes withdrawal symptoms from benzodiazepines and he reports his depression is relatively at her today but still has times feeling hopeless and worthless. Patient denies current suicidal or homicidal ideation. He was fixated on the sleep problem and feels lack of motivation and no energy. He denies any severe agitation or aggressive behavior. Denies any paranoid ideation. The patient is compliant with his medications and denies any adverse reactions. The patient denies any manic symptoms including sustained period of time with elevated or irritable mood, impulsive or irrational behavior. The patient denies any auditory or visual hallucinations. Also the patient denies any paranoid ideation. Discussed with the patient to start antidepressant medication and he preferred to restart on Trintellix which he tried in the past and was helpful. Objective: Vitals has been reviewed. Mental status examination; Appearance: The patient appears, fairly groomed, average body built, no specific features. Gait/posture: Normal arm swinging: No abnormal movements. Attitude and behavior: engaged, cooperative, fair eye contact. Motor activity: psychomotor activity Speech: spontaneous, normal rate, rhythm, and articulation. Normal volume. Not pressured. Language: Articulating, naming objects and repeat phrases. Mood: Depressed Affect: Constricted. Thought process: Linear, goal-directed. Association: Not circumstantial, not tangential. Thought content: No delusions, no current suicidal thoughts, denies homicidal thoughts, denies intentions, or plans. Perception: Denies any auditory or visual hallucinations Alertness: No impairment. Concentration: Impaired Orientation: Oriented to time, place, person, and situation Insight regarding psychiatric condition: Limited Judgment regarding daily activities and social situation: Limited Assessment: Unspecified bipolar disorder. Rule out bipolar disorder type II. Opioid use disorder, severe in early remission. Sedative hypnotics use disorder, severe. Rule out sedative hypnotics withdrawal. Rule out cocaine use disorder severe. Rule out methamphetamine use disorder severe. Rule out cannabis use disorder. Hepatitis C. Seizure disorder. Plan: Continue inpatient level of care due to continued to feel depressed, hopeless and need for further stabilization on medications Continue treatment of bipolar disorder provide psychiatric education regarding his diagnosis Precautions: Continue 15 minutes check for safety. Consider medical consultation if any acute medical issues arise. Provide the patient individual, group therapy, substance use disorder counseling to give better insight and learn coping skills. Continue follow-up with the patient daily to monitor progress of depression, anxiety, and mood symptoms. Medications: Increase Remeron to 15 mg at bedtime to help with insomnia and for depression symptoms. Start melatonin 5 mg at bedtime to help was insomnia. Start Vistaril 25 mg 4 times a day today as needed for anxiety. Start Trintellix 10 mg daily for depression and anxiety. Continue Zyprexa 5 mg twice daily and 10 mg at bedtime for mood stabilization. Continue Neurontin 600 mg 3 times a day for anxiety and post acute withdrawal syndrome. Continue Ativan taper for benzo withdrawal. Discharge patient to OUTPATIENT services upon a stabilization Prognosis: Minimal improvement Expected LOS: 4-6 days
[2019-07-15] MEDS ORDERED: MELATONIN 5 MG TABLET PO SCH (21:00)
[2019-07-15] MEDS: OLANZapine 10 MG TAB PO SCH (21:10)
[2019-07-15] MEDS: MIRTAZAPINE 15 MG TAB PO SCH (21:10)
[2019-07-16] MEDS: LORazepam 0.5 MG TAB PO SCH ×4 (01:00→21:17)
[2019-07-16] MEDS: NICOTINE 21MG/24HR PATCH TRANSDERM SCH (08:34)
[2019-07-16] MEDS: VORTIOXETINE HYDROBROMIDE 10 MG TABLET PO SCH (08:34)
[2019-07-16] MEDS: OLANZapine 5 MG TAB PO SCH ×2 (08:35→18:16)
[2019-07-16] MEDS: levETIRAcetam 500 MG TAB PO SCH ×2 (08:35→21:17)
[2019-07-16] MEDS: hydrOXYzine PAMOATE 25 MG CAP PO PRN ×3 (08:36→21:18)
[2019-07-16] MEDS: GABAPENTIN 300 MG CAP PO SCH ×3 (08:36→21:17)
--- NOTE | 2019-07-16 14:11 | P.PN ---
Progress Note - Text Progress Note Date: 07/16/19 Chief complaint: "I still have sleep problem " Subjective: The patient has been seen today as follow-up, chart reviewed, case discussed with the treatment team. Patient reports poor sleep last night. Patient has been going to limited groups and other unit activities. Patient reports fair ap petite. Patient reports improvement of his mood and minimizes depression. He denies suicidal or homicidal ideation. Patient reports is still has sleep problem that during fall asleep easily and wakes up frequently with difficulty to go back to sleep. Patient reports is still has mood swings with times feeling very irritable and easily agitated. He denies any auditory or visual hallucination, paranoid ideation, and no delusions could be elicited. He denies any manic symptoms.The patient is compliant with his medications and denies any adverse reactions. Patient reports willing to continue substance use treatment after discharge and he try to contact access Center to get to [facility] inpatient drug rehab program after discharge. Objective: Vitals has been reviewed. Mental status examination; Appearance: The patient appears, fairly groomed, average body built, no specific features. Gait/posture: Normal arm swinging: No abnormal movements. Attitude and behavior: engaged, cooperative, fair eye contact. Motor activity: psychomotor activity Speech: spontaneous, normal rate, rhythm, and articulation. Normal volume. Not pressured. Language: Articulating, naming objects and repeat phrases. Mood: Anxious, depressed Affect: Constricted. Thought process: Linear, goal-directed. Association: Not circumstantial, not tangential. Thought content: No delusions, no current suicidal thoughts, denies homicidal thoughts, denies intentions, or plans. Perception: Denies any auditory or visual hallucinations Alertness: No impairment. Concentration: Impaired Orientation: Oriented to time, place, person, and situation Insight regarding psychiatric condition: Limited Judgment regarding daily activities and social situation: Limited Assessment: Unspecified bipolar disorder. Rule out bipolar disorder type II. Opioid use disorder, severe in early remission. Sedative hypnotics use disorder, severe. Rule out sedative hypnotics withdrawal. Rule out cocaine use disorder severe. Rule out methamphetamine use disorder severe. Rule out cannabis use disorder. Hepatitis C. Seizure disorder. Plan: Continue inpatient level of care due to continued to feel depressed, hopeless and need for further stabilization on medications Continue treatment of bipolar disorder provide psychiatric education regarding his diagnosis Precautions: Continue 15 minutes check for safety. Consider medical consultation if any acute medical issues arise. Provide the patient individual, group therapy, substance use disorder counseling to give better insight and learn coping skills. Continue follow-up with the patient daily to monitor progress of depression, anxiety, and mood symptoms. Medications: Continue Remeron to 15 mg at bedtime to help with insomnia and for depression symptoms. Increase melatonin 10 mg at bedtime to help was insomnia. Continue Vistaril 25 mg 4 times a day today as needed for anxiety. Start Vistaril 100 mg at bedtime as needed for insomnia Continue Trintellix 10 mg daily for depression and anxiety. Continue Zyprexa 5 mg twice daily and 10 mg at bedtime for mood stabilization. Continue Neurontin 600 mg 3 times a day for anxiety and post acute withdrawal syndrome. Continue Ativan taper for benzo withdrawal. Discharge patient to OUTPATIENT services upon a stabilization Prognosis: Some improvement Expected LOS: 3-5 days
[2019-07-16] MEDS: NICOTINE POLACRILEX 2 MG GUM BUCCAL PRN ×2 (19:04→21:48)
[2019-07-16] MEDS: MIRTAZAPINE 15 MG TAB PO SCH (21:18)
[2019-07-16] MEDS: OLANZapine 10 MG TAB PO SCH (21:18)
[2019-07-16] MEDS: MELATONIN 5 MG TABLET PO SCH (21:18)
[2019-07-17] MEDS: GABAPENTIN 300 MG CAP PO SCH ×3 (08:20→21:01)
[2019-07-17] MEDS: LORazepam 0.5 MG TAB PO SCH ×2 (08:20→20:58)
[2019-07-17] MEDS: levETIRAcetam 500 MG TAB PO SCH ×2 (08:21→20:58)
[2019-07-17] MEDS: VORTIOXETINE HYDROBROMIDE 10 MG TABLET PO SCH (08:21)
[2019-07-17] MEDS: OLANZapine 5 MG TAB PO SCH ×2 (08:21→17:02)
[2019-07-17] MEDS: NICOTINE 21MG/24HR PATCH TRANSDERM SCH (08:21)
[2019-07-17] MEDS: hydrOXYzine PAMOATE 25 MG CAP PO PRN ×3 (08:22→21:00)
[2019-07-17] MEDS: MAG HYDROX/AL HYDROX/SIMETH 30 ML CUP PO PRN ×2 (12:11→15:54)
--- NOTE | 2019-07-17 13:31 | P.PN ---
Progress Note - Text Progress Note Date: 07/17/19 Chief complaint: "I'm feeling better today " Subjective: The patient has been seen today as follow-up, chart reviewed, case discussed with the treatment team. Patient slept about 6-7 hours last night. Patient has been going to some groups and other unit activities. Patient reports fair appet ite. Patient reports feeling more stable emotionally and denies feeling hopeless, worthless, or suicidal. He was talking about continuing substance use treatment at [facility] after discharge and he is waiting for their decision about taking him or not. Patient denies any manic or psychotic symptoms, and he denies severe anxiety or panic attacks.The patient is compliant with his has medications and denies any adverse reactions. Objective: Vitals has been reviewed. Mental status examination; Appearance: The patient appears, fairly groomed, average body built, no specific features. Gait/posture: Normal arm swinging: No abnormal movements. Attitude and behavior: engaged, cooperative, fair eye contact. Motor activity: psychomotor activity Speech: spontaneous, normal rate, rhythm, and articulation. Normal volume. Not pressured. Language: Articulating, naming objects and repeat phrases. Mood: Anxious Affect: Constricted. Thought process: Linear, goal-directed. Association: Not circumstantial, not tangential. Thought content: No delusions, no current suicidal thoughts, denies homicidal thoughts, denies intentions, or plans. Perception: Denies any auditory or visual hallucinations Alertness: No impairment. Concentration: Impaired Orientation: Oriented to time, place, person, and situation Insight regarding psychiatric condition: Fair. Judgment regarding daily activities and social situation: Fair Assessment: Unspecified bipolar disorder. Rule out bipolar disorder type II. Opioid use disorder, severe in early remission. Sedative hypnotics use disorder, severe. Rule out sedative hypnotics withdrawal. Rule out cocaine use disorder severe. Rule out methamphetamine use disorder severe. Rule out cannabis use disorder. Hepatitis C. Seizure disorder. Plan: Continue inpatient level of care due to continued to feel depressed, hopeless and need for further stabilization on medications Continue treatment of bipolar disorder provide psychiatric education regarding his diagnosis Precautions: Continue 15 minutes check for safety. Consider medical consultation if any acute medical issues arise. Provide the patient individual, group therapy, substance use disorder counseling to give better insight and learn coping skills. Continue follow-up with the patient daily to monitor progress of depression, anxiety, and mood symptoms. Medications: Continue Remeron to 15 mg at bedtime to help with insomnia and for depression symptoms. Continue melatonin 10 mg at bedtime to help was insomnia. Continue Vistaril 25 mg 4 times a day today as needed for anxiety, and Vistaril 100 mg at bedtime as needed for insomnia Continue Trintellix 10 mg daily for depression and anxiety. Continue Zyprexa 5 mg twice daily and 10 mg at bedtime for mood stabilization. Continue Neurontin 600 mg 3 times a day for anxiety and post acute withdrawal syndrome. Continue Ativan taper for benzo withdrawal. Discharge patient to OUTPATIENT services upon a stabilization Prognosis: Improving. Expected LOS: 1-2 days
[2019-07-17] MEDS: MELATONIN 5 MG TABLET PO SCH (20:58)
[2019-07-17] MEDS: OLANZapine 10 MG TAB PO SCH (20:58)
[2019-07-17] MEDS: MIRTAZAPINE 15 MG TAB PO SCH (20:58)
--- NOTE | 2019-07-18 08:32 | P.PN ---
Progress Note - Text Interval history: The patient is found in the medication window he follows me to an interview room. He is admitted for a suicide attempt and is diagnosed with bipolar disorder and has several substance use disorders. He indicates he overdosed on Xanax. He states he is glad he is alive versus the attempt being unsuccessful. He does continue to have some depression. He does continue to report some symptoms of thinking people may be better off without him but those are more fleeting. He indicates he attends some groups but he feels tired and has been sleeping during the day as well. Appetite reportedly stable. Staff report he slept 7 hours last evening. He has no questions regarding his current psychotropic medications. He is on Trintellix Zyprexa and Remeron. Mental status exam: The patient is a tall male appearing his stated age he is dressed in shorts and is wearing a hooded sweatshirt with his lomeli up. He has a nose piercing. Eye contact is intermittent. He states his mood is tired. He states that his mood fluctuates from being okay to depressed at times. Overall he is glad he is alive but there are times where he thinks people would be better off without him. He is endorsing no homicidal ideation intent or plan. He is reporting no auditory or visual hallucinations or any specific delusions. He demonstrates no verbal or physical aggressiveness. He maintains a constricted affect throughout the session. Insight and judgment limited. Plan: The patient will continue on his current psychotropic medication. We will monitor him for safety and encourage participation in the milieu. He is scheduled to attend rehab at [facility] next week. Vital signs reviewed.
[2019-07-18] MEDS: NICOTINE 21MG/24HR PATCH TRANSDERM SCH (08:37)
[2019-07-18] MEDS: GABAPENTIN 300 MG CAP PO SCH ×3 (08:38→21:11)
[2019-07-18] MEDS: LORazepam 0.5 MG TAB PO SCH ×2 (08:38→20:06)
[2019-07-18] MEDS: OLANZapine 5 MG TAB PO SCH ×2 (08:38→17:08)
[2019-07-18] MEDS: levETIRAcetam 500 MG TAB PO SCH ×2 (08:38→21:11)
[2019-07-18] MEDS: MAG HYDROX/AL HYDROX/SIMETH 30 ML CUP PO PRN ×3 (08:39→17:08)
[2019-07-18] MEDS: VORTIOXETINE HYDROBROMIDE 10 MG TABLET PO SCH (08:39)
[2019-07-18] MEDS: IBUPROFEN 400 MG TAB PO PRN (13:28)
[2019-07-18] MEDS: NICOTINE POLACRILEX 2 MG GUM BUCCAL PRN (17:44)
[2019-07-18] MEDS: hydrOXYzine PAMOATE 25 MG CAP PO PRN (20:06)
[2019-07-18] MEDS: MELATONIN 5 MG TABLET PO SCH (21:11)
[2019-07-18] MEDS: OLANZapine 10 MG TAB PO SCH (21:11)
[2019-07-18] MEDS: MIRTAZAPINE 15 MG TAB PO SCH (21:11)
[2019-07-19] MEDS: GABAPENTIN 300 MG CAP PO SCH ×3 (08:30→21:30)
[2019-07-19] MEDS: OLANZapine 5 MG TAB PO SCH ×2 (08:30→16:45)
[2019-07-19] MEDS: NICOTINE 21MG/24HR PATCH TRANSDERM SCH (08:30)
[2019-07-19] MEDS: levETIRAcetam 500 MG TAB PO SCH ×2 (08:30→21:30)
[2019-07-19] MEDS: VORTIOXETINE HYDROBROMIDE 10 MG TABLET PO SCH (08:31)
[2019-07-19] MEDS: hydrOXYzine PAMOATE 25 MG CAP PO PRN (08:31)
[2019-07-19] MEDS: NICOTINE POLACRILEX 2 MG GUM BUCCAL PRN (08:41)
[2019-07-19] MEDS: MAG HYDROX/AL HYDROX/SIMETH 30 ML CUP PO PRN (11:35)
[2019-07-19] MEDS ORDERED: FAMOTIDINE 20 MG TAB PO PRN (11:45)
--- NOTE | 2019-07-19 11:52 | P.PN ---
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 He states that his mood is more anxious today. He wonders if we can change the dosing of the Vistaril. He did sleep a lot yesterday staff report he slept 7 hours last evening. He is looking forward to being discharged and hopes he can get in the [facility] sooner than his placement date of Saturday. We reviewed his other psychotropic medications his questions were answered. He asks for Prilosec for ongoing reflux. Mental status exam: The patient is a tall male he is dressed in his own clothing hygiene is adequate. He is mildly disheveled. Eye contact is appropriate speech is fluent spontaneous nonpressured he maintains a constricted affect. He is reporting no acute suicidal or homicidal ideation intent or plan. He is reporting no auditory or visual hallucinations or any specific delusions. There is no observed evidence of psychosis hypomania or severiano. Insight and judgment improving. He demonstrates no verbal or physical aggressiveness. He describes some future oriented thinking. He remains oriented to person place and date. Plan: The patient will continue on his current psychotropic medications however we will discontinue the 100 mg this drawl dose at bedtime and the 25 mg dose. We will put him on 50 mg 3 times a day. He is instructed to monitor for oversedation dry mouth constipation etc. I will prescribe proton ask and Pepcid as he is describing significant symptoms of reflux. Vital signs reviewed. He is encouraged to fully participate in the milieu. We will continue to monitor him for safety.
[2019-07-19] MEDS: hydrOXYzine PAMOATE 25 MG CAP PO SCH ×2 (16:43→21:29)
[2019-07-19] MEDS: PANTOPRAZOLE 40 MG TABLET PO SCH (16:44)
[2019-07-19] MEDS: IBUPROFEN 400 MG TAB PO PRN (16:44)
[2019-07-19] MEDS: OLANZapine 10 MG TAB PO SCH (21:29)
[2019-07-19] MEDS: MELATONIN 5 MG TABLET PO SCH (21:29)
[2019-07-19] MEDS: MIRTAZAPINE 15 MG TAB PO SCH (21:30)
[2019-07-20] MEDS: levETIRAcetam 500 MG TAB PO SCH ×2 (07:57→21:18)
[2019-07-20] MEDS: hydrOXYzine PAMOATE 25 MG CAP PO SCH ×3 (07:57→21:19)
[2019-07-20] MEDS: NICOTINE 21MG/24HR PATCH TRANSDERM SCH (07:57)
[2019-07-20] MEDS: OLANZapine 5 MG TAB PO SCH ×2 (07:57→17:42)
[2019-07-20] MEDS: PANTOPRAZOLE 40 MG TABLET PO SCH ×2 (07:57→17:42)
[2019-07-20] MEDS: VORTIOXETINE HYDROBROMIDE 10 MG TABLET PO SCH (07:57)
[2019-07-20] MEDS: GABAPENTIN 300 MG CAP PO SCH ×3 (07:58→21:19)
[2019-07-20 11:28] VITALS: BMI 27.7
--- NOTE | 2019-07-20 15:25 | P.PN ---
Progress Note - Text Progress Note Date: 07/20/19 Clinical Problems: Unspecified depressive disorder, cocaine use disorder, benzodiazepine use disorder, methamphetamine use disorder, cannabis use disorder Opiate use disorder severe in early remission, rule out bipolar disorder Interim history: Reviewed the medical record, interviewed the patient and discuss his treatment and treatment plan during team meeting. He is a 33-year-old single male who has a long history of a substance abuse disorder. He presented to the psychiatric disorder with complaints of depression and suicidal ideation in the contents of relapse to cocaine and benzodiazepines. On admission he alleged that he attempted overdose on Xanax. During our interview he stated he became distressed after he relapsed to Xanax and cocaine. He talked about his struggles with his substance use problems and frequent relapses (the alleged that he has been an over 12 substance abuse treatment programs). He alleged that he became suicidal and attempted to overdose on Xanax because he was unsuccessful in maintaining abstinence from drugs. He requested to be discharged today. He alleged that he can move in with some friends temporarily and plans to follow-up with treatment through [facility]. He denied feeling depressed or having thoughts of or suicide. Mental status exam: He presented as a tall casually groomed 33-year-old male who was pleasant on approach. He made eye contact and attended to the interview. He had no distinguishing features or prominent physical abnormalities. He had a blunted facial expression. He was oriented to person, place and time. He showed slight psychomotor retardation but no abnormal moveme nts. He had a normal gait and station. His speech was spontaneous with normal rate, rhythm and volume. He had no articulation difficulties. His affect was blunted but stable and appropriate. He denied suicidal ideation or wishes. He denied homicidal ideation. He denied such depressive cognitions as hopelessness, helplessness or worthlessness. He denied ideas of reference, paranoid ideation or delusional thoughts. His thinking was concrete but his associations were coherent and logical. He denied hallucinations and did not appear to be responding to internal stimuli. Assessment: He has a long history of substance use problems and multiple substance abuse treatment episodes. He presented to the psychiatric unit with complaints of depression and suicidal ideation after relapse to cocaine and benzodiazepines. He is currently enrolled in the community substance abuse treatment where he receives a monthly injection of Vivatrol for treatment of his chronic opiate use disorder. He is currently denying suicidal ideation, intent or plan and expressed a willingness to engage in outpatient mental health services. Plan: Continue inpatient psychiatric hospitalization. Plan for discharge on 07/21/2019. dry transfer worker to assist with discharge plans and aftercare services. Continue safety precautions. Continue Neurontin 600 mg 3 times a day, Vistaril 50 mg 3 times a day, Keppra 500 mg twice a day, melatonin 10 mg at bedtime, Remeron 15 mg at bedtime, Zyprexa 5 mg in the morning and 10 mg at bedtime, and treatment will ask 10 mg daily. Encourage continued participation in therapeutic groups and activities. Evaluate clinical status response to treatment daily basis.
[2019-07-20] MEDS: MELATONIN 5 MG TABLET PO SCH (21:19)
[2019-07-20] MEDS: OLANZapine 10 MG TAB PO SCH (21:19)
[2019-07-20] MEDS: MIRTAZAPINE 15 MG TAB PO SCH (21:19)
[2019-07-21 06:27] VITALS: BP 110/58; PULSE 60; RESP 17; TEMP 98.4
[2019-07-21] MEDS: OLANZapine 5 MG TAB PO SCH (09:25)
[2019-07-21] MEDS: VORTIOXETINE HYDROBROMIDE 10 MG TABLET PO SCH (09:25)
[2019-07-21] MEDS: PANTOPRAZOLE 40 MG TABLET PO SCH (09:25)
[2019-07-21] MEDS: GABAPENTIN 300 MG CAP PO SCH (09:25)
[2019-07-21] MEDS: NICOTINE 21MG/24HR PATCH TRANSDERM SCH (09:25)
[2019-07-21] MEDS: levETIRAcetam 500 MG TAB PO SCH (09:26)
[2019-07-21] MEDS: hydrOXYzine PAMOATE 25 MG CAP PO SCH (09:26)
--- NOTE | 2019-07-21 16:25 | P.DS ---
Providers Date of admission: 07/12/19 22:40 Attending physician: Lopez Herndon MD Consults: 07/12/19 22:42 Consult Physician Routine Consulting Provider: [facility] Consult Reason/Comments: medical management Do you want consulting provider notified?: Yes Primary care physician: Stated None - Discharge Diagnosis(es) (1) Cocaine use disorder Status: Chronic Priority: Medium (2) Depression Status: Resolved Priority: Low (3) Opioid use disorder Status: Chronic Priority: Medium (4) Suicidal ideation Status: Resolved Priority: Medium Hospital Course: He is a 33-year-old male with long history of substance use disorder. He presented to the psychiatric unit complaints depression and suicidal ideation in the context of relapse to cocaine and benzodiazepines. On admission to the unit he alleged that he attempted to overdose on Xanax. He attributed to the depression and suicidal ideation to his distress over his relapse to Xanax and cocaine. He talked about his chronic struggles with his substance abuse problems and frequent relapses. He alleged that he has been in over 12 substance abuse treatment programs. He is made to the psychiatric unit and provided a comprehensive multidisciplinary assessment. He met with the social and political studies professor who assisted him with obtaining residential substance abuse services. We treated his mood symptoms with a combination of Remeron 50 mg at bedtime, Zyprexa 5 mg in morning and 10 mg at bedtime, Neurontin 600 mg 3 times a day and Vistaril 50 mg 3 times a day when necessary for anxiety. We continue Keppra 500 mg twice a day for treatment of reported seizure disorder. He posed no management problem and had no episodes of behavioral dyscontrol. He had no signs and symptoms of benzodiazepine withdrawal. His depressive symptoms remitted rapidly after discharge. At the time of discharge he presented as a tall casually groomed 33-year-old male who was pleasant on approach. He made eye contact and attended to interview. He had no distinguishing features or prominent physical abnormalities. He had a blunted facial expression. He was alert and oriented to person, place and time. He showed no psychomotor retardation and no abnormal movements. He had a normal gait and station. His speech was spontaneous with normal rate, rhythm and volume. He had no articulation difficulties. His affect was blunted but stable and appropriate. He denied suicidal ideation or wishes. He denied homicidal ideation. He denied such depressive cognitions as hopelessness, helplessness or worthlessness. He denied experiencing ideas reference, paranoid ideation or delusional thoughts. His thinking was concrete but his associations were coherent and logical. He denied hallucinations and did not appear to be responding to internal stimuli. Patient Condition at Discharge: Fair Plan - Discharge Summary Discharge Rx Participant: No New Discharge Prescriptions: New Nicotine 21Mg/24Hr Patch [Habitrol] 1 patch TRANSDERM DAILY 14 Days #14 patch Melatonin 10 mg PO HS 28 Days #28 tablet Gabapentin [Neurontin] 600 mg PO TID 28 Days #168 cap Mirtazapine [Remeron] 15 mg PO HS 28 Days #28 tab Vortioxetine Hydrobromide [Trintellix] 10 mg PO DAILY 28 Days #28 tablet OLANZapine [ZyPREXA] 5 mg PO BID-W/MEALS 28 Days #28 tab OLANZapine [ZyPREXA] 10 mg PO HS 28 Days #28 tab Continue Ibuprofen [Motrin] 600 mg PO QID PRN 28 Days tab PRN Reason: MODERATE Pain Ergocalciferol [Vitamin D2 (DRISDOL)] 50,000 unit PO Q7D levETIRAcetam [Keppra] 500 mg PO BID 28 Days #56 tab Discontinued ARIPiprazole [Abilify] 5 mg PO DAILY 28 Days tab Sertraline [Zoloft] 25 mg PO DAILY #28 tab Gabapentin 600 mg PO BID 14 Days tab Discharge Medication List Ibuprofen [Motrin] 600 mg PO QID PRN 28 Days tab 06/09/19 [Rx] Ergocalciferol [Vitamin D2 (DRISDOL)] 50,000 unit PO Q7D 07/12/19 [History] Gabapentin [Neurontin] 600 mg PO TID 28 Days #168 cap 07/21/19 [Rx] Melatonin 10 mg PO HS 28 Days #28 tablet 07/21/19 [Rx] Mirtazapine [Remeron] 15 mg PO HS 28 Days #28 tab 07/21/19 [Rx] Nicotine 21Mg/24Hr Patch [Habitrol] 1 patch TRANSDERM DAILY 14 Days #14 patch 07/21/19 [Rx] OLANZapine [ZyPREXA] 5 mg PO BID-W/MEALS 28 Days #28 tab 07/21/19 [Rx] OLANZapine [ZyPREXA] 10 mg PO HS 28 Days #28 tab 07/21/19 [Rx] Vortioxetine Hydrobromide [Trintellix] 10 mg PO DAILY 28 Days #28 tablet 07/21/19 [Rx] levETIRAcetam [Keppra] 500 mg PO BID 28 Days #56 tab 07/21/19 [Rx] Follow up Appointment(s)/Referral(s): [facility] [Outside] - 07/23/19 9:15 am (07/23/19 at 915.) None,Stated [Primary Care Provider] - 1-2 days [facility] [NON-STAFF] - 1 Week Patient Instructions/Handouts: How to Stop Smoking (DC), Mood Disorders (DC), Bipolar Disorder (DC), Opioid Withdrawal (DC) Activity/Diet/Wound Care/Special Instructions: Activity and diet as tolerated. No guns or weapons in the home. Refrain from alcohol and street drugs not prescribed by your physicians. Take all medications as prescribed, and attend all follow up appointments as scheduled. If in need of medication refills, please go to your Primary care physician, or your out patient psychiatric provider. If in crisis, please go to the nearest ER for an evaluation, or call . Discharge Disposition: HOME SELF-CARE
== END 2019-07-21 12:25 | disposition home or self-care (01) | DRG 897 ==
LOC: EC 20:45 → 3MHU 22:40
PROVIDERS: ADMIT Psychiatry & Neurology Psychiatry; ATTEND Psychiatry & Neurology Psychiatry
DX: F14.20 Cocaine dependence, uncomplicated (principal); F15.20 Other stimulant dependence, uncomplicated; F13.20 Sedative, hypnotic or anxiolytic dependence, uncomplicated; F11.20 Opioid dependence, uncomplicated; F31.9 Bipolar disorder, unspecified; F12.20 Cannabis dependence, uncomplicated; F43.10 Post-traumatic stress disorder, unspecified; G40.909 Epilepsy, unspecified, not intractable, without status epilepticus; D72.829 Elevated white blood cell count, unspecified; B19.20 Unspecified viral hepatitis C without hepatic coma; T42.4X2A Poisoning by benzodiazepines, intentional self-harm, initial encounter; K21.9 Gastro-esophageal reflux disease without esophagitis; R45.87 Impulsiveness; G47.00 Insomnia, unspecified; F17.210 Nicotine dependence, cigarettes, uncomplicated; Z71.6 Tobacco abuse counseling; Z79.899 Other long term (current) drug therapy; Z86.14 Personal history of Methicillin resistant Staphylococcus aureus infection; Z98.890 Other specified postprocedural states; Z86.15 Personal history of latent tuberculosis infection; Z91.5 Personal history of self-harm; Z56.0 Unemployment, unspecified; Z63.8 Other specified problems related to primary support group; Z59.0 Homelessness; Z82.49 Family history of ischemic heart disease and other diseases of the circulatory system
CPT/HCPCS: 36415; 80053; 80061; 80306; 80320; 80329; 81001; 82075; 82550; 83036; 83520; 83690; 85025; 85610; 93005; 96360; 99285

== ENCOUNTER 2019-08-26 17:13 | Inpatient (IN) | payer MEDICAID, OTHER ==
--- NOTE | 2019-08-26 18:14 | ED ---
General Adult HPI - General Chief complaint: Psychiatric Symptoms Stated complaint: Mental health Time Seen by Provider: 08/26/19 17:50 Source: patient Mode of arrival: ambulatory Limitations: no limitations - History of Present Illness Initial comments: Dictation was produced using [employer] dictation software. please excuse any grammatical, word or spelling errors. Chief Complaint: 33-year-old male past medical history of polysubstance abuse and suicidality presents with suicidal ideation. History of Present Illness: 33-year-old male who has past medical history of polysubstance abuse. Patient states he attempted to overdose on heroin yesterday. Patient states that he tried to overdose on heroin yesterday but ended up being Narcan by his girlfriend. She states he is feeling worse and more suicidal today. Patient takes other medications. Denies any physical harm to himself. She reports that he wants to overdose on heroin. Patient states he feels depressed. The ROS documented in this emergency department record has been reviewed and confirmed by me. Those systems with pertinent positive or negative responses have been documented in the HPI. All other systems are other negative and/or noncontributory. PHYSICAL EXAM: General Impression: Alert and oriented x3, not in acute distress HEENT: Normocephalic atraumatic, extra-ocular movements intact, pupils equal and reactive to light bilaterally, mucous membranes moist. Cardiovascular: Heart regular rate and rhythm, S1&S2 audible, no murmurs, rubs or gallops Chest: Lungs clear to auscultation bilaterally, no rhonchi, no wheeze, no rales Abdomen: Bowel sounds present, abdomen soft, non-tender, non-distended, no organomegaly Musculoskeletal: Pulses present and equal in all extremities, no peripheral edema Motor: no focal deficits noted Neurological: CN II-XII grossly intact, no focal motor or sensory deficits noted Skin: Intact with no visualized rashes Psych: Depressed ED course: 33-year-old male presents after suicidal attempt yesterday and suicidal ideation today. Upon arrival are within acceptable limits. Patient reports that he tried to overdose on heroin yesterday but received Narcan. Patient not showing any signs of respiratory distress. Laboratory evaluation obtained. Mild occipital stockings are likely secondary to stress. Metabolic panel is negative. Salicylates, Tylenol and alcohol levels are negative. QT is benign. Patient medically cleared for EPS evaluation. evaluated by EPS will be admitted to inpatient psychiatry. EKG interpretation: Ventricular rate 60, normal sinus rhythm,. 146, care is 94, QTC 406. No OH prolongation, no QTC prolongation, no ST or T-wave changes noted. Overall, this EKG is unremarkable - Related Data Home Medications Medication Instructions Recorded Confirmed Ergocalciferol [Vitamin D2 50,000 unit PO Q7D 07/12/19 07/12/19 (DRISDOL)] Previous Rx's Medication Instructions Recorded Ibuprofen [Motrin] 600 mg PO QID PRN 28 Days tab 06/09/19 Gabapentin [Neurontin] 600 mg PO TID 28 Days #168 cap 07/21/19 Melatonin 10 mg PO HS 28 Days #28 tablet 07/21/19 Mirtazapine [Remeron] 15 mg PO HS 28 Days #28 tab 07/21/19 Nicotine 21Mg/24Hr Patch [Habitrol] 1 patch TRANSDERM DAILY 14 Days 07/21/19 #14 patch OLANZapine [ZyPREXA] 5 mg PO BID-W/MEALS 28 Days #28 tab 07/21/19 OLANZapine [ZyPREXA] 10 mg PO HS 28 Days #28 tab 07/21/19 Vortioxetine Hydrobromide 10 mg PO DAILY 28 Days #28 tablet 07/21/19 [Trintellix] levETIRAcetam [Keppra] 500 mg PO BID 28 Days #56 tab 07/21/19 Allergies Allergy/AdvReac Type Severity Reaction Status Date / Time No Known Allergies Allergy Verified 07/13/19 00:22 Review of Systems ROS Statement: Those systems with pertinent positive or pertinent negative responses have been documented in the HPI. ROS Other: All systems not noted in ROS Statement are negative. Past Medical History Past Medical History: GERD/Reflux, Liver Disease, Seizure Disorder Additional Past Medical History / Comment(s): polysubstance drug abuse, hepatitis C, latent TB History of Any Multi-Drug Resistant Organisms: MRSA Date of last positivie culture/infection: 2010 MDRO Source:: RIGHT FOREARM Past Surgical History: Orthopedic Surgery Additional Past Surgical History / Comment(s): right elbow Past Anesthesia/Blood Transfusion Reactions: No Reported Reaction Past Psychological History: Anxiety, Depression Smoking Status: Current every day smoker Past Alcohol Use History: None Reported Past Drug Use History: Cocaine, Heroin, IV Drug Use, Methamphetamine, Opiates - Past Family History Father Additional Family Medical History / Comment(s): Father is alive at age 58 with no major medical problems of the patient is aware of. Mother Family Medical History: Hypertension Additional Family Medical History / Comment(s): Mother has history of hypertension and is age 57. Patient has 2 brothers and 2 sisters with no major medical problems. General Exam Limitations: no limitations Course Vital Signs 08/26/19 08/26/19 17:17 18:12 Temperature 98.8 F Pulse Rate 88 Respiratory 19 16 Rate Blood Pressure 147/92 139/78 O2 Sat by Pulse 98 99 Oximetry Medical Decision Making - Lab Data Result diagrams: 08/26/19 18:30 08/26/19 18:30 Lab Results 08/26/19 08/26/19 08/26/19 Range/Units 18:13 18:30 18:30 WBC 12.0 H (3.8-10.6) k/uL RBC 5.11 (4.30-5.90) m/uL Hgb 15.8 (13.0-17.5) gm/dL Hct 48.1 (39.0-53.0) % MCV 94.2 (80.0-100.0) fL MCH 31.0 (25.0-35.0) pg MCHC 32.9 (31.0-37.0) g/dL RDW 12.8 (11.5-15.5) % Plt Count 261 (150-450) k/uL Neutrophils % 68 % Lymphocytes % 22 % Monocytes % 5 % Eosinophils % 2 % Basophils % 2 % Neutrophils # 8.2 H (1.3-7.7) k/uL Lymphocytes # 2.7 (1.0-4.8) k/uL Monocytes # 0.6 (0-1.0) k/uL Eosinophils # 0.2 (0-0.7) k/uL Basophils # 0.2 (0-0.2) k/uL Sodium 140 (137-145) mmol/L Potassium 3.5 (3.5-5.1) mmol/L Chloride 106 (98-107) mmol/L Carbon Dioxide 27 (22-30) mmol/L Anion Gap 7 mmol/L BUN 15 (9-20) mg/dL Creatinine 0.66 (0.66-1.25) mg/dL Est GFR (CKD-EPI)AfAm >90 (>60 ml/min/1.73 sqM) Est GFR (CKD-EPI)NonAf >90 (>60 ml/min/1.73 sqM) Glucose 103 H (74-99) mg/dL Plasma Lactic Acid Jus (0.7-2.0) mmol/L Calcium 9.8 (8.4-10.2) mg/dL Total Bilirubin 1.3 (0.2-1.3) mg/dL AST 41 (17-59) U/L ALT 68 H (4-49) U/L Alkaline Phosphatase 49 (38-126) U/L Creatine Kinase 94 (55-170) U/L Total Protein 7.7 (6.3-8.2) g/dL Albumin 4.5 (3.5-5.0) g/dL Salicylates <1.0 mg/dL Urine Opiates Screen Not Detected (NotDetected) Ur Oxycodone Screen Not Detected (NotDetected) Urine Methadone Screen Not Detected (NotDetected) Ur Propoxyphene Screen Not Detected (NotDetected) Acetaminophen <10.0 ug/mL Ur Barbiturates Screen Not Detected (NotDetected) U Tricyclic Antidepress Not Detected (NotDetected) Ur Phencyclidine Scrn Not Detected (NotDetected) Ur Amphetamines Screen Not Detected (NotDetected) U Methamphetamines Scrn Not Detected (NotDetected) U Benzodiazepines Scrn Not Detected (NotDetected) Urine Cocaine Screen Not Detected (NotDetected) U Marijuana (THC) Screen Not Detected (NotDetected) Serum Alcohol <10 mg/dL 08/26/19 Range/Units 18:30 WBC (3.8-10.6) k/uL RBC (4.30-5.90) m/uL Hgb (13.0-17.5) gm/dL Hct (39.0-53.0) % MCV (80.0-100.0) fL MCH (25.0-35.0) pg MCHC (31.0-37.0) g/dL RDW (11.5-15.5) % Plt Count (150-450) k/uL Neutrophils % % Lymphocytes % % Monocytes % % Eosinophils % % Basophils % % Neutrophils # (1.3-7.7) k/uL Lymphocytes # (1.0-4.8) k/uL Monocytes # (0-1.0) k/uL Eosinophils # (0-0.7) k/uL Basophils # (0-0.2) k/uL Sodium (137-145) mmol/L Potassium (3.5-5.1) mmol/L Chloride (98-107) mmol/L Carbon Dioxide (22-30) mmol/L Anion Gap mmol/L BUN (9-20) mg/dL Creatinine (0.66-1.25) mg/dL Est GFR (CKD-EPI)AfAm (>60 ml/min/1.73 sqM) Est GFR (CKD-EPI)NonAf (>60 ml/min/1.73 sqM) Glucose (74-99) mg/dL Plasma Lactic Acid Jus 1.2 (0.7-2.0) mmol/L Calcium (8.4-10.2) mg/dL Total Bilirubin (0.2-1.3) mg/dL AST (17-59) U/L ALT (4-49) U/L Alkaline Phosphatase (38-126) U/L Creatine Kinase (55-170) U/L Total Protein (6.3-8.2) g/dL Albumin (3.5-5.0) g/dL Salicylates mg/dL Urine Opiates Screen (NotDetected) Ur Oxycodone Screen (NotDetected) Urine Methadone Screen (NotDetected) Ur Propoxyphene Screen (NotDetected) Acetaminophen ug/mL Ur Barbiturates Screen (NotDetected) U Tricyclic Antidepress (NotDetected) Ur Phencyclidine Scrn (NotDetected) Ur Amphetamines Screen (NotDetected) U Methamphetamines Scrn (NotDetected) U Benzodiazepines Scrn (NotDetected) Urine Cocaine Screen (NotDetected) U Marijuana (THC) Screen (NotDetected) Serum Alcohol mg/dL Disposition Clinical Impression: Suicidal ideation Disposition: ADMITTED IP TO THIS [facility] Condition: Fair Referrals: None,Stated [Primary Care Provider] - 1-2 days Decision Time: 20:13
[2019-08-26 18:46] LABS: Basophils # (A) 0.2 k/uL (0-0.2); Basophils % (A) 2 %; Eosinophils # (A) 0.2 k/uL (0-0.7); Eosinophils % (A) 2 %; HCT 48.1 % (39.0-53.0); HGB 15.8 gm/dL (13.0-17.5); Lymphocytes # (A) 2.7 k/uL (1.0-4.8); Lymphocytes % (A) 22 %; MCHC 32.9 g/dL (31.0-37.0); MCV 94.2 fL (80.0-100.0); Mean Platelet Volume 7.9; Monocytes # (A) 0.6 k/uL (0-1.0); Monocytes % (A) 5 %; Neutrophils # (A) 8.2 k/uL (1.3-7.7); Neutrophils % (A) 68 %; Platelet Count 261 k/uL (150-450); RBC 5.11 m/uL (4.30-5.90); RDW 12.8 % (11.5-15.5)
[2019-08-26 18:57] LABS: ALT 68 U/L (4-49); AST 41 U/L (17-59); Acetaminophen <10.0 ug/mL; African American GFR (CKD) >90 (>60 ml/min/1.73 sqM); Albumin 4.5 g/dL (3.5-5.0); Alcohol <10 mg/dL; Alkaline Phosphatase 49 U/L (38-126); Anion Gap 7 mmol/L; Blood Urea Nitrogen 15 mg/dL (9-20); Calcium 9.8 mg/dL (8.4-10.2); Carbon Dioxide 27 mmol/L (22-30); Chloride 106 mmol/L (98-107); Creatine Kinase 94 U/L (55-170); Glucose 103 mg/dL (74-99); Non-African American GFR(CKD) >90 (>60 ml/min/1.73 sqM); Potassium 3.5 mmol/L (3.5-5.1); Salicylate <1.0 mg/dL; Sodium 140 mmol/L (137-145); Total Bilirubin 1.3 mg/dL (0.2-1.3); Total Protein 7.7 g/dL (6.3-8.2)
[2019-08-26 19:02] LABS: Amphetamine Screen,Urine Not Detected (NotDetected); Barbiturate Screen,Urine Not Detected (NotDetected); Benzodiazepines Screen,Urine Not Detected (NotDetected); Cocaine Screen,Urine Not Detected (NotDetected); Methadone Screen, Urine Not Detected (NotDetected); Opiate Screen,Urine Not Detected (NotDetected); Oxycodone Screen, Urine Not Detected (NotDetected); Phencyclidine Screen,Urine Not Detected (NotDetected); Tricyclic Antidepressant,Urine Not Detected (NotDetected); Urn Cannabinoid Scrn Not Detected (NotDetected)
[2019-08-26] MEDS ORDERED: MAG HYDROX/AL HYDROX/SIMETH 30 ML CUP PO PRN (20:59)
[2019-08-26] MEDS ORDERED: ACETAMINOPHEN TAB 325 MG TAB PO PRN (20:59)
[2019-08-26] MEDS ORDERED: ZIPRASIDONE 20 MG VIAL IM PRN (20:59)
[2019-08-26] MEDS ORDERED: MAGNESIUM HYDROXIDE 2,400 MG/10 ML CUP PO PRN (20:59)
[2019-08-26] MEDS: IBUPROFEN 600 MG TAB PO SCH (22:57)
[2019-08-26] MEDS: OLANZapine 10 MG TAB PO SCH (22:57)
[2019-08-26] MEDS: GABAPENTIN 300 MG CAP PO SCH (22:57)
[2019-08-26] MEDS: levETIRAcetam 500 MG TAB PO SCH (22:57)
[2019-08-27] MEDS: levETIRAcetam 500 MG TAB PO SCH (08:28)
[2019-08-27] MEDS: GABAPENTIN 300 MG CAP PO SCH ×2 (08:28→15:47)
[2019-08-27] MEDS: IBUPROFEN 600 MG TAB PO SCH ×2 (08:29→15:47)
[2019-08-27] MEDS: NICOTINE 14MG/24HR PATCH TRANSDERM SCH (08:29)
[2019-08-27] MEDS ORDERED: OLANZapine 5 MG TAB PO SCH (09:00)
--- NOTE | 2019-08-27 13:32 | P.HP ---
Psychiatric H&P - . H&P Date: 08/27/19 History & Physical: Allergies Allergy/AdvReac Type Severity Reaction Status Date / Time No Known Allergies Allergy Verified 08/26/19 20:34 Vital Signs Temp 98.6 F 08/27/19 06:52 Pulse 63 08/27/19 06:52 Resp 16 08/27/19 06:52 BP 111/60 08/27/19 06:52 Pulse Ox 98 08/26/19 21:38 Intake & Output 08/26/19 08/27/19 08/27/19 18:59 06:59 18:59 Weight 95.753 kg 92.193 kg Laboratory Last Values WBC 12.0 k/uL (3.8-10.6) H 08/26/19 18:30 RBC 5.11 m/uL (4.30-5.90) 08/26/19 18:30 Hgb 15.8 gm/dL (13.0-17.5) 08/26/19 18:30 Hct 48.1 % (39.0-53.0) 08/26/19 18:30 MCV 94.2 fL (80.0-100.0) 08/26/19 18:30 MCH 31.0 pg (25.0-35.0) 08/26/19 18:30 MCHC 32.9 g/dL (31.0-37.0) 08/26/19 18:30 RDW 12.8 % (11.5-15.5) 08/26/19 18:30 Plt Count 261 k/uL (150-450) 08/26/19 18:30 Neutrophils % 68 % 08/26/19 18:30 Lymphocytes % 22 % 08/26/19 18:30 Monocytes % 5 % 08/26/19 18:30 Eosinophils % 2 % 08/26/19 18:30 Basophils % 2 % 08/26/19 18:30 Neutrophils # 8.2 k/uL (1.3-7.7) H 08/26/19 18:30 Lymphocytes # 2.7 k/uL (1.0-4.8) 08/26/19 18:30 Monocytes # 0.6 k/uL (0-1.0) 08/26/19 18:30 Eosinophils # 0.2 k/uL (0-0.7) 08/26/19 18:30 Basophils # 0.2 k/uL (0-0.2) 08/26/19 18:30 Sodium 140 mmol/L (137-145) 08/26/19 18:30 Potassium 3.5 mmol/L (3.5-5.1) 08/26/19 18:30 Chloride 106 mmol/L (98-107) 08/26/19 18:30 Carbon Dioxide 27 mmol/L (22-30) 08/26/19 18:30 Anion Gap 7 mmol/L 08/26/19 18:30 BUN 15 mg/dL (9-20) 08/26/19 18:30 Creatinine 0.66 mg/dL (0.66-1.25) 08/26/19 18:30 Est GFR (CKD-EPI)AfAm >90 (>60 ml/min/1.73 sqM) 08/26/19 18:30 Est GFR (CKD-EPI)NonAf >90 (>60 ml/min/1.73 sqM) 08/26/19 18:30 Glucose 103 mg/dL (74-99) H 08/26/19 18:30 Plasma Lactic Acid Jus 1.2 mmol/L (0.7-2.0) 08/26/19 18:30 Calcium 9.8 mg/dL (8.4-10.2) 08/26/19 18:30 Total Bilirubin 1.3 mg/dL (0.2-1.3) 08/26/19 18:30 AST 41 U/L (17-59) 08/26/19 18:30 ALT 68 U/L (4-49) H 08/26/19 18:30 Alkaline Phosphatase 49 U/L (38-126) 08/26/19 18:30 Creatine Kinase 94 U/L (55-170) 08/26/19 18:30 Total Protein 7.7 g/dL (6.3-8.2) 08/26/19 18:30 Albumin 4.5 g/dL (3.5-5.0) 08/26/19 18:30 Triglycerides 120 mg/dL (<150) 08/27/19 08:57 Cholesterol 155 mg/dL (<200) 08/27/19 08:57 LDL Cholesterol, Calc 101 mg/dL (0-99) H 08/27/19 08:57 HDL Cholesterol 30 mg/dL (40-60) L 08/27/19 08:57 TSH 0.725 mIU/L (0.465-4.680) 08/27/19 08:57 Salicylates <1.0 mg/dL 08/26/19 18:30 Urine Opiates Screen Not Detected (NotDetected) 08/26/19 18:13 Ur Oxycodone Screen Not Detected (NotDetected) 08/26/19 18:13 Urine Methadone Screen Not Detected (NotDetected) 08/26/19 18:13 Ur Propoxyphene Screen Not Detected (NotDetected) 08/26/19 18:13 Acetaminophen <10.0 ug/mL 08/26/19 18:30 Ur Barbiturates Screen Not Detected (NotDetected) 08/26/19 18:13 U Tricyclic Antidepress Not Detected (NotDetected) 08/26/19 18:13 Ur Phencyclidine Scrn Not Detected (NotDetected) 08/26/19 18:13 Ur Amphetamines Screen Not Detected (NotDetected) 08/26/19 18:13 U Methamphetamines Scrn Not Detected (NotDetected) 08/26/19 18:13 U Benzodiazepines Scrn Not Detected (NotDetected) 08/26/19 18:13 Urine Cocaine Screen Not Detected (NotDetected) 08/26/19 18:13 U Marijuana (THC) Screen Not Detected (NotDetected) 08/26/19 18:13 Serum Alcohol <10 mg/dL 08/26/19 18:30 08/27/19 13:17 Identification: patient is a 33-year-old male presented to the emergency room after taking an overdose of heroin and was given Narcan by his girlfriend in a suicide attempt. History of Present Illness: patient states that he had been at [facility] after his discharge here from the inpatient psychiatric unit in July was there and went to a [facility] where he stayed for one week. He states the [facility] was not a nice neighborhood in [place] and he didn't like it there so he left. He states that he's been off his medications for the last 2 weeks because he left them at the [facility]. Patient had been prescribed Remeron 15 mg at bedtime, Zyprexa 5 mg twice a day and 10 mg at bedtime as well as trintellix 10 mg in the morning. Patient states he's been using heroin for the last 2 weeks no other drugs or alcohol. He states that he is not currently suicidal and is reporting feeling depressed, feels like he is withdrawing and states that he was tired when he was on his medications. States he has no place to live and has been going from place to place since leaving the [facility]. Patient states that he did not follow-up with anyone after his leaving the [facility]. Patient was unable to provide any further history stating that he doesn't know to most of the other questions. Patient was not able to endorse a history of manic symptoms, no psychotic symptoms. Patient states that he's been using pain pills as a teenager and began using heroin at the age of 20. He has used Xanax, cocaine in the past.patient is unable to state if he took an overdose as suicide attempt or not stating I don't know I don't remember. Past Psychiatric History: patient has 4 prior admissions to this inpatient unit 09/17/2014 and 2016 and one in July of this year and June of this year. He was sent to [facility] after both discharges this year and went to a [facility] both time after completing his time at [facility] was kicked out of the [facility] back in May and walked away from the [facility] in August. Patient states that he's had too numerous to count substance abuse treatment in the past. Patient has been on multiple medications most recently Remeron 15 mg at bedtime Zyprexa 5 twice a day and 10 at bedtime and Trintellix 10 mg in the morning. Patient has also been on Abilify and Zolof t and can't recall any other medications that he's been on. Patient states that he had 2 prior suicide attempts 1 by cutting and an overdose and another by overdose. Past Medical/Surgical History: patient has a history of seizure disorder, GERD and is hepatitis C positive and denies any surgeries Family History: patient denies any family history of psychiatric problems alcohol or drug abuse history and no completed suicides Social History: patient was born and raised in [place] and his parents when he was 1 years of age and he went to live with his father who he states remarried and numerous times. States his father is currently living in [place]. Patient has 2 siblings and he states that he has contact with them but none with his father. His mother lives in [place] and he does have contact with her. 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 Patient has never he has 2 children one age 1414 years old and the other 2 months old both different mothers. States he does have contact with them. He claims that he has no current place to live and no source of financial support and denies any abuse history. Substance Use History: patient states he began using pain pills as a teenager at the age 20 changed to using IV heroin and is used since that time. He states that he has used Xanax which he purchased on the street occasionally over the years as well as cocaine. He denies any marijuana use, or other drug use and states that he doesn't use alcohol and does use tobacco products Legal History: patient states he has had a domestic violence charge 1, larceny 1 Mental status: Appearance/Attitude: patient is casually dressed and makes intermittent eye contact and is superficially cooperative Behavior: patient does not exhibit any psychomotor agitation or retardation Speech/Language: patient's speechis spontaneous and of normal volume and rhythm and he is coherent Thought Process: patient is goal-directed, however he answers questions briefly and many of them with "I don't know" no evidence of loose association or flight of ideas Thought Content: patient denies any auditory or visual hallucinations no delusions or paranoid ideation or elicited, patient complains that he is in withdrawal and is requesting Ativan. Patient states that he tired and the medicines of been making him tired, he states that he is eating okay. Suicidal/Homicidal Ideation: patient denies any current suicidal or homicidal ideation Sensorium/Cognition: patient is alert and oriented to person, place, and time and his recent and remote memory are grossly intact. Mood/Affect: patient's mood is restricted and his affect is blunted Insight/Judgment: patient's insight and judgment are poor Intellectual Functioning: patient's intellectual functioning appears average Strength/Weakness: patient does not compliant with substance abuse treatment, noncompliance with outpatient therapy and medication, use of drugs Assessment: patient's chart was reviewed, patient does not endorse a history of manic symptoms, psychotic symptoms, anxiety but doesn't endorse a history of depressive symptoms and has a long history since the age of 20 using IV heroin and abusing pain medication since he was a teenager. Patient has had 4 prior admissions and has multiple admissions for substance abuse treatment. His 2 recent admissions this fall at this hospital ended in him being sent to [facility] for treatment and then onto [facility] where he left after a week this most recent time and was asked to leave after 2 weeks the time prior. Patient has not been compliant with follow-up care, medications. Admission Diagnosis: substance-induced depressive disorder, opioid use disorder, moderate Plan: patient was admitted on a voluntary basis placed on routine observation in group and activity therapy were ordered. Medical consultation was also ordered the patient had routine laboratory studies performed. Patient was continued on his medications for his seizure disorder, due to his complaints of feeling sedated on Zyprexa the dose was decreased to 10 mg at bedtime, as the patient is not able to endorse a history of manic symptoms would continue to decrease this medication and eventually discontinued. Patient was continued on Remeron 15 mg at bedtime and was restarted on trintellix 10 milligrams in the morning.patient declines a referral for inpatient substance abuse at this time. Patient requires hospitalization to stabilize his mood.
[2019-08-27] MEDS: hydrOXYzine PAMOATE 25 MG CAP PO PRN (15:48)
[2019-08-27 16:23] LABS: Hemoglobin A1C 5.3 % (4.0-6.0)
--- NOTE | 2019-08-27 20:35 | P.MDCNMH ---
History of Present Illness H&P Date: 08/27/19 Chief Complaint: suicidal ideation 33-year-old male with history of bipolar disorder and polysubstance abuse. Patient comes in to the hospital due to suicidal ideation he was planning on overdosing on heroin. He has long history of addiction and heroin. Patient has not been taking his psych medications because he thinks they don't work. He admits to tobacco smoking daily but denies any alcohol use. Patient currently denies any physical complaints of chest pain trouble breathing fevers or chills. Denies any GI bleeding. He reports that he's feeling that symptoms of heroin withdrawal is starting to come up however he currently denies any runny nose abdominal cramps or diarrhea. He is asking for Ativan though. Review of Systems Pertinent positives as noted in HPI. All other systems were reviewed and are negative Past Medical History Past Medical History: GERD/Reflux, Liver Disease, Seizure Disorder Additional Past Medical History / Comment(s): polysubstance drug abuse, hepatitis C, latent TB History of Any Multi-Drug Resistant Organisms: MRSA Date of last positivie culture/infection: 2010 MDRO Source:: RIGHT FOREARM Past Surgical History: Orthopedic Surgery Additional Past Surgical History / Comment(s): right elbow Past Anesthesia/Blood Transfusion Reactions: No Reported Reaction Past Psychological History: Anxiety, Depression Smoking Status: Current every day smoker Past Alcohol Use History: None Reported Past Drug Use History: Cocaine, Heroin, IV Drug Use, Methamphetamine, Opiates - Past Family History Father Additional Family Medical History / Comment(s): Father is alive at age 58 with no major medical problems of the patient is aware of. Mother Family Medical History: Hypertension Additional Family Medical History / Comment(s): Mother has history of hypertension and is age 57. Patient has 2 brothers and 2 sisters with no major medical problems. Medications and Allergies Home Medications Medication Instructions Recorded Confirmed Type Ibuprofen [Motrin] 600 mg PO QID PRN 28 Days tab 06/09/19 08/26/19 Rx Ergocalciferol [Vitamin D2 50,000 unit PO Q7D 07/12/19 08/26/19 History (DRISDOL)] Gabapentin [Neurontin] 600 mg PO TID 28 Days #168 cap 07/21/19 08/26/19 Rx Melatonin 10 mg PO HS 28 Days #28 tablet 07/21/19 08/26/19 Rx Mirtazapine [Remeron] 15 mg PO HS 28 Days #28 tab 07/21/19 08/26/19 Rx Nicotine 21Mg/24Hr Patch [Habitrol] 1 patch TRANSDERM DAILY 14 Days 07/21/19 08/26/19 Rx #14 patch OLANZapine [ZyPREXA] 10 mg PO HS 28 Days #28 tab 07/21/19 08/26/19 Rx Vortioxetine Hydrobromide 10 mg PO DAILY 28 Days #28 tablet 07/21/19 08/26/19 Rx [Trintellix] levETIRAcetam [Keppra] 500 mg PO BID 28 Days #56 tab 07/21/19 08/26/19 Rx OLANZapine [ZyPREXA] 5 mg PO DAILY 08/26/19 08/26/19 History hydrOXYzine PAMOATE [Vistaril] 50 mg PO TID PRN 08/26/19 08/26/19 History Allergies Allergy/AdvReac Type Severity Reaction Status Date / Time No Known Allergies Allergy Verified 08/26/19 20:34 Physical Exam Vitals: Vital Signs Temp Pulse Pulse Resp BP BP Pulse Ox 08/27/19 06:52 98.6 F 63 16 111/60 08/26/19 21:38 97.6 F 88 16 127/72 98 08/26/19 20:53 98.7 F 60 16 121/72 98 Constitutional: No acute distress, conversant, pleasant Eyes: Anicteric sclerae, moist conjunctiva, no lid-lag Pupils equal round reactive to light ENMT: NC/AT Oropharynx clear, no erythema, exudates Neck: Supple, FROM, no masses, or JVD No carotid bruits No thyromegaly Lungs: Clear to auscultation Clear to percussion Normal respiratory effort, no accessory muscle use Cardiovascular: Heart regular in rate and rhythm, No murmurs, gallops, or rubs No peripheral edema Abdominal: Soft Nontender, no guarding, rebound or rigidity Abdomen moving with respiration Normoactive bowel sounds No hepatomegaly, No splenomegaly No palpable mass No abdominal wall hernia noted Skin: Normal temperature, tone, texture, turgor No induration No subcutaneous nodules No rash, lesions No ulcers Extremities: No digital cyanosis No clubbing Pedal pulses intact and symmetrical Radial pulses intact and symmetrical No calf tenderness Psychiatric: Alert and oriented to person, place and time Appropriate affect poor judgment Neuro Muscles Strength 5/5 in all 4 extremities Sensation to light touch grossly present throughout Cranial nerves II-XII grossly intact No focal sensory deficits Lymphatics: no palpable cervical or supraclavicular , or inguinal lymph nodes Cranial Nerve Examination - Cranial Nerves Cranial Nerve II- Optic: Intact Cranial Nerve III- Oculomotor: Intact Cranial Nerve IV- Trochlear: Intact Cranial Nerve V- Trigeminal: Intact Cranial Nerve - Abducens: Intact Cranial Nerve VII- Facial: Intact Cranial Nerve VIII- Auditory: Intact Cranial Nerve IX- Glossopharyngeal: Intact Cranial Nerve X- Vagus: Intact Cranial Nerve XI- Accessory: Intact Cranial Nerve XII- Hypoglossal: Intact Results CBC & Chem 7: 08/26/19 18:30 08/26/19 18:30 Labs: Abnormal Lab Results - Last 24 Hours (Table) 08/27/19 Range/Units 08:57 LDL Cholesterol, Calc 101 H (0-99) mg/dL HDL Cholesterol 30 L (40-60) mg/dL Assessment and Plan Assessment: 33-year-old male with history of bipolar disorder and polysubstance abuse and seizure. Patient comes in due to suicidal ideation with plans on overdosing on heroin. H e is currently going through heroin withdrawal. Otherwise denies any physical complaints. Medicine was consulted for medical management Plan: suicidal ideation Polysubstance abuse Bipolar disorder Noncompliance with medications Management per psych history of seizure Continue home meds low risk for DVT patient is ambulatory Labs reviewed Thank you for allowing us to participate in the care of this patient. We will follow peripherally. Do not hesitate to contact us with questions. Someone can be reached from the [facility] hospitalist group at all hours of the day at [phone].
[2019-08-28] MEDS: IBUPROFEN 600 MG TAB PO SCH ×4 (02:59→21:17)
[2019-08-28] MEDS: OLANZapine 10 MG TAB PO SCH ×2 (02:59→21:19)
[2019-08-28] MEDS: GABAPENTIN 300 MG CAP PO SCH ×4 (02:59→21:17)
[2019-08-28] MEDS: MELATONIN 5 MG TABLET PO SCH ×2 (02:59→21:17)
[2019-08-28] MEDS: MIRTAZAPINE 15 MG TAB PO SCH ×2 (02:59→21:19)
[2019-08-28] MEDS: levETIRAcetam 500 MG TAB PO SCH ×3 (02:59→21:19)
[2019-08-28] MEDS: hydrOXYzine PAMOATE 25 MG CAP PO PRN ×2 (08:21→16:19)
[2019-08-28] MEDS: NICOTINE 14MG/24HR PATCH TRANSDERM SCH (08:21)
[2019-08-28] MEDS: VORTIOXETINE HYDROBROMIDE 10 MG TABLET PO SCH (08:21)
--- NOTE | 2019-08-28 13:16 | P.PN ---
Progress Note - Text Progress Note Date: 08/28/19 Interval History: patient is a 33-year-old male who was seen today he refused to get up out of bed stating that he was not feeling well having withdrawal symptoms which he couldn't really elaborate on. Patient states that he didn't sleep well last night and won't get up to talk.patient has not been attending groups or activities. Mental Status: Appearance/Attitude: patient is lying in a hospital bed, refusing to get up to talk stating that he is having withdrawal symptoms, patient is superficially cooperative. Behavior: patient does not display any psychomotor agitation or retardation Speech/Language: patient's speech is nonspontaneous he responded only to questions, normal volume and rhythm and he is coherent Thought Process: patient is goal-directed although non-elaborative in his responses is no evidence of loose association or flight of ideas Thought Content: patient denies any auditory or visual hallucinations and no delusions or paranoid ideation were elicited. Patient states he still in withdrawal and refuses to get up and speak and states he is not sleeping well. Suicidal/Homicidal Ideation: patient denied any current suicidal or homicidal ideation Sensorium/Cognition: patient is alert and oriented to person, place and time Mood/Affect: patient's mood remains irritable and his affect appropriate to his mood Insight/Judgment: patient's insight and judgment are limited Assessment: patient states that he is not to get up because he is having withdrawal symptoms and didn't sleep well last night. Patient has not been attending groups or activities and states he didn't sleep well last night although its documented the patient slept for 5 hours. Plan: patient will continue on Zyprexa 10 mg at bedtime and continue to decrease and taper this the patient has no psychotic symptoms and does not endorse a history of manic episodes. Patient also continues on Remeron 15 mg at bedtime and trintellix 10 mg in the morning. He is also receiving melatonin 10 mg to assist with sleep. Patient declines inpatient substance abuse treatment and was encouraged to participate. Patient continues to require hospitalization to further stabilize his mood.
[2019-08-29] MEDS: GABAPENTIN 300 MG CAP PO SCH ×3 (08:25→21:13)
[2019-08-29] MEDS: levETIRAcetam 500 MG TAB PO SCH ×2 (08:25→21:13)
[2019-08-29] MEDS: IBUPROFEN 600 MG TAB PO SCH ×3 (08:25→21:13)
[2019-08-29] MEDS: NICOTINE 14MG/24HR PATCH TRANSDERM SCH (08:27)
[2019-08-29] MEDS: VORTIOXETINE HYDROBROMIDE 10 MG TABLET PO SCH (08:27)
[2019-08-29] MEDS: hydrOXYzine PAMOATE 25 MG CAP PO PRN ×2 (08:28→16:44)
[2019-08-29] MEDS ORDERED: LOPERAMIDE 2 MG CAP PO PRN (16:32)
[2019-08-29] MEDS ORDERED: LOPERAMIDE 2 MG CAP PO STA (16:32)
[2019-08-29] MEDS ORDERED: cloNIDine HCL 0.1 MG TAB PO PRN (16:33)
--- NOTE | 2019-08-29 16:35 | P.PN ---
Progress Note - Text Progress Note Date: 08/29/19 interval history: Patient is seen in cross coverage today. He says he is not sleeping well. He complains of opioid withdrawal. Says he was using heroin daily. He is having issue with diarrhea. He describes his mood could be better. Mental status exam: He is alert and cooperative with the interview. His affect is restricted. He describes his mood could be better. He does not verbalize any thoughts of harm to self or others. No evidence of psychosis or current agitation. Plan: We'll add Imodium when necessary and clonidine when necessary to help with him opioid withdrawal symptoms. He'll be maintained on current psychotropic medication regimen. We'll continue to monitor mood and monitor for any adverse psychotropic medication side effects. We'll monitor his ongoing response to treatment.
[2019-08-29] MEDS: MELATONIN 5 MG TABLET PO SCH (21:12)
[2019-08-29] MEDS: OLANZapine 10 MG TAB PO SCH (21:13)
[2019-08-29] MEDS: MIRTAZAPINE 15 MG TAB PO SCH (21:26)
[2019-08-30] MEDS: GABAPENTIN 300 MG CAP PO SCH ×3 (08:26→21:04)
[2019-08-30] MEDS: levETIRAcetam 500 MG TAB PO SCH ×2 (08:27→21:04)
[2019-08-30] MEDS: VORTIOXETINE HYDROBROMIDE 10 MG TABLET PO SCH (08:27)
[2019-08-30] MEDS: NICOTINE 14MG/24HR PATCH TRANSDERM SCH (08:27)
[2019-08-30] MEDS: IBUPROFEN 600 MG TAB PO SCH ×3 (08:28→21:04)
[2019-08-30] MEDS: hydrOXYzine PAMOATE 25 MG CAP PO PRN ×2 (08:28→16:56)
--- NOTE | 2019-08-30 16:56 | P.PN ---
Progress Note - Text Progress Note Date: 08/30/19 interval history: Patient reports he still having some or withdrawal today. He reports the clonidine does not give him any benefit and if anything lowered his blood pressure. He also is not taking the Remeron and does not want to take the Zyprexa could just makes him feel tired. He would prefer to be back on Abilify which seemed to give more benefit. Mental status exam: He is alert and cooperative with the interview. Speech is fluent, not rapid or pressured. His thought processes are organized. His mood appears depressed. He admits to some on and off thoughts of suicide, relays he is able to be safe in the hospital. No evidence of active psychosis. He does not present with any agitation. Plan: We'll discontinue Remeron and Zyprexa. We will reinitiate low-dose of Abilify starting tomorrow at 2 mg daily. We will also discontinue clonidine when necessary as he describes it does not give him any benefit. Continue to monitor regarding thoughts of suicide and monitor his ongoing response to treatment.
[2019-08-30] MEDS: MELATONIN 5 MG TABLET PO SCH (21:04)
[2019-08-31] MEDS: GABAPENTIN 300 MG CAP PO SCH ×2 (08:19→16:01)
[2019-08-31] MEDS: NICOTINE 14MG/24HR PATCH TRANSDERM SCH (08:19)
[2019-08-31] MEDS: IBUPROFEN 600 MG TAB PO SCH ×3 (08:20→20:44)
[2019-08-31] MEDS: hydrOXYzine PAMOATE 25 MG CAP PO PRN ×2 (08:20→16:01)
[2019-08-31] MEDS: ARIPiprazole 2 MG TAB PO SCH (08:20)
[2019-08-31] MEDS: levETIRAcetam 500 MG TAB PO SCH ×2 (08:21→20:43)
[2019-08-31] MEDS: VORTIOXETINE HYDROBROMIDE 10 MG TABLET PO SCH (08:22)
--- NOTE | 2019-08-31 16:19 | P.PN ---
Subjective Progress Note Date: 08/31/19 Patient was seen and chart was reviewed. Case discussed with staff. The patient reports feeling "and "crappy the patient reports going through opiate withdrawal but has been refusing medications patient claims that the clonidine and Remeron is not helping and in fact is making him worse. The patient has been refusing his medications. The patient appears to be medication seeking and asking for Ambien and Ativan. The patient has been withdrawn and isolative and does not participate in any milieu therapy. The patient reports poor sleep and appetite. The patient denies any auditory or visual hallucinations. He denies any active suicidal homicidal or paranoid ideations. The patient appears to be depressed and his affect is constricted. Objective - Vital Signs Vital signs: Vital Signs Temp 97.6 F 08/31/19 06:35 Pulse 43 L 08/31/19 06:35 Resp 16 08/31/19 06:35 BP 118/69 08/31/19 06:35 Pulse Ox 99 08/29/19 08:25 Intake & Output 08/30/19 08/31/19 08/31/19 18:59 06:59 18:59 Weight 96.1 kg - Exam Mental Status Exam: General Appearance: Patient appears to be stated age is alert, directable. minimum hygiene and grooming. Patient has good eye contact. Behavior: Patient is seated without any agitated behavior. He appears irritable. Speech: Patient's speech is fluent and nonpressured. soft tone. Mood/Affect: Patient reports increased depression and anxiety Suicidality/Homicidality: Patient denies having any suicidal or homicidal ideation intent or plan. Perceptions: Patient denies any auditory or visual hallucinations. Though content/process: There is no evidence of any delusional thought content and thought process is linear and goal-directed. Memory and concentration: AOX3, grossly intact for the purposes of this session. Judgment and insight: Poor. - Labs CBC & Chem 7: 08/26/19 18:30 08/26/19 18:30 Assessment and Plan Assessment: Assessment Substance-induced depressive disorder, opioid use disorder, moderate Plan: Plan: -Patient continues to meet criteria for inpatient psychiatric admission for symptom stabilization and safety. Patient has signed adult voluntary form and medication consent and was placed in patient's chart. Encourage compliance -Medications: Increase Gabapentin 800 mg PO tid. -NRT - -SW on board for discharge planning.
[2019-08-31] MEDS: GABAPENTIN 400 MG CAP PO SCH (20:43)
[2019-08-31] MEDS: MELATONIN 5 MG TABLET PO SCH (20:44)
[2019-09-01] MEDS: ARIPiprazole 2 MG TAB PO SCH (08:02)
[2019-09-01] MEDS: levETIRAcetam 500 MG TAB PO SCH ×2 (08:02→21:27)
[2019-09-01] MEDS: IBUPROFEN 600 MG TAB PO SCH ×3 (08:02→21:27)
[2019-09-01] MEDS: GABAPENTIN 400 MG CAP PO SCH ×3 (08:03→21:28)
[2019-09-01] MEDS: NICOTINE 14MG/24HR PATCH TRANSDERM SCH (08:03)
[2019-09-01] MEDS: hydrOXYzine PAMOATE 25 MG CAP PO PRN ×2 (08:03→16:04)
[2019-09-01] MEDS: VORTIOXETINE HYDROBROMIDE 10 MG TABLET PO SCH (08:03)
--- NOTE | 2019-09-01 11:27 | P.PN ---
Subjective Patient was seen and chart was reviewed. Case discussed with staff. The patient reports feeling a lot better since yesterday. The patient reports improvement in his symptoms of withdrawal. The patient reports improved sleep and appetite. The patient reports that he is having some trouble with sleeping because of his roommate's snoring. The patient denies any auditory or visual hallucinations he denies any active suicidal homicidal or paranoid ideations at this time. The patient talked about sober living and is currently now on a waiting list for [facility]. Objective - Vital Signs Vital signs: Vital Signs Temp 97.6 F 09/01/19 06:45 Pulse 43 L 09/01/19 06:45 Resp 16 09/01/19 06:45 BP 121/58 09/01/19 06:45 Pulse Ox 99 08/29/19 08:25 - Exam Mental Status Exam: General Appearance: Patient appears to be stated age is alert, directable. minimum hygiene and grooming. Patient has good eye contact. Behavior: Patient is seated without any agitated behavior. Pleasant and cooperative Speech: Patient's speech is fluent and nonpressured. soft tone. Mood/Affect: His stated mood is good and affect is congruent Suicidality/Homicidality: Patient denies having any suicidal or homicidal ideation intent or plan. Perceptions: Patient denies any auditory or visual hallucinations. Though content/process: There is no evidence of any delusional thought content and thought process is linear and goal-directed. Memory and concentration: AOX3, grossly intact for the purposes of this session. Judgment and insight: Improving - Labs CBC & Chem 7: 08/26/19 18:30 08/26/19 18:30 Assessment and Plan Assessment: Assessment Substance-induced depressive disorder, opioid use disorder, moderate Plan: Plan: -Patient continues to meet criteria for inpatient psychiatric admission for symptom stabilization and safety. Patient has signed adult voluntary form and medication consent and was placed in patient's chart. Encourage compliance -Medications: Continue Gabapentin 800 mg PO tid. Continue to and collects 10 mg by mouth daily -NRT - -SW on board for discharge planning.
[2019-09-01] MEDS: MELATONIN 5 MG TABLET PO SCH (21:27)
[2019-09-02] MEDS: IBUPROFEN 600 MG TAB PO SCH ×3 (08:14→21:07)
[2019-09-02] MEDS: GABAPENTIN 400 MG CAP PO SCH ×3 (08:15→21:08)
[2019-09-02] MEDS: ARIPiprazole 2 MG TAB PO SCH (08:15)
[2019-09-02] MEDS: levETIRAcetam 500 MG TAB PO SCH ×2 (08:17→21:07)
[2019-09-02] MEDS: NICOTINE 14MG/24HR PATCH TRANSDERM SCH (08:17)
[2019-09-02] MEDS: VORTIOXETINE HYDROBROMIDE 10 MG TABLET PO SCH (08:18)
[2019-09-02] MEDS: hydrOXYzine PAMOATE 25 MG CAP PO PRN ×2 (12:24→21:11)
--- NOTE | 2019-09-02 12:31 | P.PN ---
Subjective Progress Note Date: 09/02/19 Patient was seen and chart was reviewed. Case discussed with staff. The patient reports feeling anxious all the time but denies any depression. The patient reports improvement in his symptoms of withdrawal but still reports cold sweats and restlessness. The patient reports poor sleep and good appetite. The patient denies any auditory or visual hallucinations he denies any active suicidal homicidal or paranoid ideations at this time. The patient talked about sober living and is currently now on a waiting list for [facility]. Objective - Vital Signs Vital signs: Vital Signs Temp 97.6 F 09/01/19 06:45 Pulse 43 L 09/01/19 06:45 Resp 16 09/01/19 06:45 BP 121/58 09/01/19 06:45 Pulse Ox 99 08/29/19 08:25 - Exam Mental Status Exam: General Appearance: Patient appears to be stated age is alert, directable. Average hygiene and grooming. Patient has good eye contact. Behavior: Patient is seated without any agitated behavior. Pleasant and cooperative Speech: Patient's speech is fluent and nonpressured. soft tone. Mood/Affect: His stated mood is good and affect is congruent Suicidality/Homicidality: Patient denies having any suicidal or homicidal ideation intent or plan. Perceptions: Patient denies any auditory or visual hallucinations. Though content/process: There is no evidence of any delusional thought content and thought process is linear and goal-directed. Memory and concentration: AOX3, grossly intact for the purposes of this session. Judgment and insight: Improving - Labs CBC & Chem 7: 08/26/19 18:30 08/26/19 18:30 Assessment and Plan Assessment: Assessment Substance-induced depressive disorder, opioid use disorder, moderate Plan: Plan: -Patient continues to meet criteria for inpatient psychiatric admission for symptom stabilization and safety. Patient has signed adult voluntary form and medication consent and was placed in patient's chart. Encourage compliance -Medications: Continue Gabapentin 800 mg PO tid. Continue Vistaril and Trintallix. -NRT - -SW on board for discharge planning.
[2019-09-02] MEDS: MELATONIN 5 MG TABLET PO SCH (21:07)
[2019-09-03] MEDS: ARIPiprazole 2 MG TAB PO SCH (08:21)
[2019-09-03] MEDS: GABAPENTIN 400 MG CAP PO SCH ×3 (08:21→21:02)
[2019-09-03] MEDS: VORTIOXETINE HYDROBROMIDE 10 MG TABLET PO SCH (08:22)
[2019-09-03] MEDS: hydrOXYzine PAMOATE 25 MG CAP PO PRN ×2 (08:22→16:03)
[2019-09-03] MEDS: NICOTINE 14MG/24HR PATCH TRANSDERM SCH (08:22)
[2019-09-03] MEDS: IBUPROFEN 600 MG TAB PO SCH ×3 (08:22→21:03)
[2019-09-03] MEDS: levETIRAcetam 500 MG TAB PO SCH ×2 (08:22→21:03)
--- NOTE | 2019-09-03 11:01 | P.PN ---
Progress Note - Text Progress Note Date: 09/03/19 Chief complaint: "I feel very stable, and I can go to stay with my daughter and her mother " Subjective: The patient has been seen today as follow-up, chart reviewed, case discussed with the treatment team. Patient slept about 7 hours last night. Patient has been going to groups and other unit activities. Patient reports fair appetite. She reports feeling stable emotionally and he denies feeling depressed, hopeless, or suicidal. He denies any mood swings, severe anxiety, and denies homicidal ideation. The patient is compliant with his medications and denies any adverse reactions. Patient reports is switching from Zyprexa to Abilify helping him with feeling stable emotionally and not sedated as he used to feel on Zyprexa. The patient denies any manic symptoms including sustained period of time with elevated or irritable mood, impulsive or irrational behavior, inflated self-esteem, or absence need to sleep due to increases goal-directed activities. The patient denies any auditory or visual hallucinations. Also the patient denies any paranoid ideation. Objective: Vitals has been reviewed. Mental status examination: Appearance: The patient appears stated age, adequately groomed and dressed, no specific features. Gait/posture: Normal gait, Normal arm swinging: No abnormal movements. Attitude and behavior: engaged, cooperative, eye contact. Motor activity: Normal psychomotor activity Speech: Normal rate, tone. Mood: Anxious Affect: Constricted Thought form: goal-directed, linear, coherent. Thought content: Non-delusional, denies suicidal thoughts, denies homicidal thoughts, denies intentions or plans. Perception: Denies any auditory or visual hallucinations Attention: No impairment. Patient was able to repeat serial 5. Orientation: Patient patient was fully oriented to time place person and situation. Insight: Patient has fair insight about his psychiatric disorder. Judgment: Patient has fair judgment about his psychiatric treatment. Assessment: Substance induced depressive disorder. Opioid use disorder, moderate to severe. Plan: Continue inpatient level of care due to need for further stabilization on medications, and discharge planning. Precautions: Continue 15 minutes check for safety. Consider medical consultation if any acute medical issues arise. Provide the patient individual, group therapy, substance use disorder counseling to give better insight and learn coping skills. Medications: Continue Abilify 2 mg daily for mood stabilization. Continue Trintellix 10 mg daily for depression and anxiety symptoms Continue Neurontin 800 mg 3 times a day for anxiety and to help with seizure disorder Continue Vistaril when necessary for anxiety. Discharge patient to OUTPATIENT services upon a stabilization Expected LOS: 1-2 days
[2019-09-03 15:04] VITALS: BMI 27.1
[2019-09-03] MEDS: MELATONIN 5 MG TABLET PO SCH (21:02)
[2019-09-04 06:30] VITALS: BP 123/60; PULSE 61; RESP 18; TEMP 97.2
[2019-09-04] MEDS: NICOTINE 14MG/24HR PATCH TRANSDERM SCH (08:17)
[2019-09-04] MEDS: GABAPENTIN 400 MG CAP PO SCH (08:17)
[2019-09-04] MEDS: levETIRAcetam 500 MG TAB PO SCH (08:17)
[2019-09-04] MEDS: ARIPiprazole 2 MG TAB PO SCH (08:17)
[2019-09-04] MEDS: VORTIOXETINE HYDROBROMIDE 10 MG TABLET PO SCH (08:18)
[2019-09-04] MEDS: IBUPROFEN 600 MG TAB PO SCH (08:18)
[2019-09-04] MEDS: hydrOXYzine PAMOATE 25 MG CAP PO PRN (08:18)
--- NOTE | 2019-09-04 10:27 | P.DS ---
Providers Date of admission: 08/26/19 20:39 Expected date of discharge: 09/04/19 Attending physician: Wandy Friend MD Consults: 08/26/19 20:59 Consult Physician Routine Consulting Provider: Ed Graham Consult Reason/Comments: H & P and medical care Do you want consulting provider notified?: Yes Primary care physician: Stated None Hospital Course: Brief HPI: As per the HPI from initial psychiatric evaluation during this hospital stay: " patient states that he had been at [place] after his discharge here from the inpatient psychiatric unit in July was there and went to a [facility] where he stayed for one week. [facility] in [place] and he didn't like it there so he left. He states that he's been off his medications for the last 2 weeks because he left them at the [facility]. Patient had been prescribed Remeron 15 mg at bedtime, Zyprexa 5 mg twice a day and 10 mg at bedtime as well as trintellix 10 mg in the morning. Patient states he's been using heroin for the last 2 weeks no other drugs or alcohol. He states that he is not currently suicidal and is reporting feeling depressed, feels like he is withdrawing and states that he was tired when he was on his medications. States he has no place to live and has been going from place to place since leaving the [facility]. Patient states that he did not follow-up with anyone after his leaving the [facility]. Patient was unable to provide any further history stating that he doesn't know to most of the other questions. Patient was not able to endorse a history of manic symptoms, no psychotic symptoms. Patient states that he's been using pain pills as a teenager and began using heroin at the age of 20. He has used Xanax, cocaine in the past.patient is unable to state if he took an overdose as suicide attempt or not stating I don't know I don't remember. " Hospital Course: Psychiatric: Zyprexa(prior to admission psychiatric medication) was gradually tapered down and discontinued due to reported increased sedation, and the patient was initiated on psychotropic medication Abilify for mood stabilization. Other prior to admission psychiatric medication was continued including Trintellix, Neurontin and Vistaril, but Neurontin was increased to help with anxiety symptom s. The medication doses has been adjusted to optimize the stability of the psychiatric symptoms, and to avoid side effects. Patient tolerated the above medication/s very well, without side effects. The patient was admitted for a safe and supportive environment. A psychiatric, medical, and psychosocial evaluations were done on admission. The patient's hospital stay is unremarkable. Patient did not exhibit any aggression towards himself or others during this hospitalization, and there was no requirements for emergency medications or restraints. The patient attended groups to obtain coping skills and process stress. Patient was compliant with his medications. Patient got along with other peers and with staff. The objective signs of depression and mood instability have been improved. Pt. denies any suicidal ideation, not made any hopelessness/helplessness statements for more than 3 days prior to discharge. Maximum hospitalization benefit was reached and subsequently discharge was planned, and patient is appropriate to continue treatment on an outpatient basis. On the day of discharge the patient was able to create an appropriate safety plan and denies any side effect of medications. Discussion was held about need to stop use of opioid use , including its effects on mood, interaction with psychiatric medications, and its role in events leading up to admission. Patient is in the contemplative stage of a change. Medical: Patient continued the medical management of his medical conditions. Non- psychiatric medications including Keppra was maintained to manage seizure dis orcer. Patient was educated about smoking cessation and he declined offer for a prescription for nicotine replacement therapy at time of discharge. Assessment: Assessment at the day of discharge: The patient was seen at the day of discharge. Patient denies any sleep or appetite disturbances, denies feeling hopeless, worthless or helpless. Also, patient denies any other depressive or manic symptoms. Patient denies any psychotic symptoms. Patient denies suicidal or homicidal thoughts, intention or plans. Nurses and therapist reported patient is psychiatrically stable, and agreed to discharge plan. Mental status examination on discharge: Appearance: The patient appears stated age, adequately groomed and dressed, no specific features. Gait/posture: Normal gait, Normal arm swinging: No abnormal movements. Attitude and behavior: engaged, cooperative, eye contact. Motor activity: Normal psychomotor activity Speech: Normal rate, tone. Mood: "good" Affect: Constricted Thought form: goal-directed, linear, coherent. Thought content: Non-delusional, denies suicidal thoughts, denies homicidal thoughts, denies intentions or plans. Perception: Denies any auditory or visual hallucinations Attention: No impairment. Patient was able to repeat serial 5. Orientation: Patient patient was fully oriented to time place person and situa tion. Insight: Patient has fair insight about his psychiatric disorder. Judgment: Patient has fair judgment about his psychiatric treatment. Discharge diagnoses: Substance induced depressive disorder. Opioid use disorder, moderate to severe. Rule out Bipolar disorder type II Health Concerns: Activity: As tolerated Diet: Regular Special Instructions: Labs to be completed after discharge: As clinically indicated by his outpatient psychiatrist and PCP. Pt is currently on Abilify and he was educated about risk of metabolic syndrome and need to continue monitoring weight, and continue monitoring lipid panel and Hb A1C. Discharge checklist for suicide and violence to determine stability: Safety plan was discussed with the patient. Patient denies any current suicidal/ homicidal or violent ideation/plan/ intent. Patient has ability to address stressors/emotions. Patient understands and is comfortable with discharge plan. Outpatient appointments is near [facility] Emergency number (911, crisis number) provided to the patient. Avoid the use of street drugs and alcohol. Take all medications as prescribed. When you are in need of refills please contact your medical provider and/or outpatient psychiatrist to have this done. Please go to scheduled outpatient appointment for aftercare. If symptoms return or become worse call the crisis line at and/or go to the nearest emergency room for an evaluation. Pertinent Studies: Laboratory Tests Range/Units 08/26/19 08/26/19 08/26/19 18:13 18:30 18:30 WBC (3.8-10.6) k/uL 12.0 H RBC (4.30-5.90) m/uL 5.11 Hgb (13.0-17.5) gm/dL 15.8 Hct (39.0-53.0) % 48.1 MCV (80.0-100.0) fL 94.2 MCH (25.0-35.0) pg 31.0 MCHC (31.0-37.0) g/dL 32.9 RDW (11.5-15.5) % 12.8 Plt Count (150-450) k/uL 261 Neutrophils % % 68 Lymphocytes % % 22 Monocytes % % 5 Eosinophils % % 2 Basophils % % 2 Neutrophils # (1.3-7.7) k/uL 8.2 H Lymphocytes # (1.0-4.8) k/uL 2.7 Monocytes # (0-1.0) k/uL 0.6 Eosinophils # (0-0.7) k/uL 0.2 Basophils # (0-0.2) k/uL 0.2 Sodium (137-145) mmol/L 140 Potassium (3.5-5.1) mmol/L 3.5 Chloride (98-107) mmol/L 106 Carbon Dioxide (22-30) mmol/L 27 Anion Gap mmol/L 7 BUN (9-20) mg/dL 15 Creatinine (0.66-1.25) mg/dL 0.66 Est GFR (CKD-EPI)AfAm (>60 ml/min/1.73 sqM) >90 Est GFR (CKD-EPI)NonAf (>60 ml/min/1.73 sqM) >90 Glucose (74-99) mg/dL [address] Glu mg/dL Hemoglobin A1c (4.0-6.0) % Plasma Lactic Acid Jus (0.7-2.0) mmol/L Calcium (8.4-10.2) mg/dL 9.8 Total Bilirubin (0.2-1.3) mg/dL 1.3 AST (17-59) U/L 41 ALT (4-49) U/L 68 H Alkaline Phosphatase (38-126) U/L 49 Creatine Kinase (55-170) U/L 94 Total Protein (6.3-8.2) g/dL 7.7 Albumin (3.5-5.0) g/dL 4.5 Triglycerides (<150) mg/dL Cholesterol (<200) mg/dL LDL Cholesterol, Calc (0-99) mg/dL HDL Cholesterol (40-60) mg/dL TSH (0.465-4.680) mIU/L Salicylates mg/dL <1.0 Urine Opiates Screen (NotDetected) Not Detected Ur Oxycodone Screen (NotDetected) Not Detected Urine Methadone Screen (NotDetected) Not Detected Ur Propoxyphene Screen (NotDetected) Not Detected Acetaminophen ug/mL <10.0 Ur Barbiturates Screen (NotDetected) Not Detected U Tricyclic Antidepress (NotDetected) Not Detected Ur Phencyclidine Scrn (NotDetected) Not Detected Ur Amphetamines Screen (NotDetected) Not Detected U Methamphetamines Scrn (NotDetected) Not Detected U Benzodiazepines Scrn (NotDetected) Not Detected Urine Cocaine Screen (NotDetected) Not Detected U Marijuana (THC) Screen (NotDetected) Not Detected Serum Alcohol mg/dL <10 Range/Units 08/26/19 08/27/19 08/27/19 18:30 08:57 08:57 WBC (3.8-10.6) k/uL RBC (4.30-5.90) m/uL Hgb (13.0-17.5) gm/dL Hct (39.0-53.0) % MCV (80.0-100.0) fL MCH (25.0-35.0) pg MCHC (31.0-37.0) g/dL RDW (11.5-15.5) % Plt Count (150-450) k/uL Neutrophils % % Lymphocytes % % Monocytes % % Eosinophils % % Basophils % % Neutrophils # (1.3-7.7) k/uL Lymphocytes # (1.0-4.8) k/uL Monocytes # (0-1.0) k/uL Eosinophils # (0-0.7) k/uL Basophils # (0-0.2) k/uL Sodium (137-145) mmol/L Potassium (3.5-5.1) mmol/L Chloride (98-107) mmol/L Carbon Dioxide (22-30) mmol/L Anion Gap mmol/L BUN (9-20) mg/dL Creatinine (0.66-1.25) mg/dL Est GFR (CKD-EPI)AfAm (>60 ml/min/1.73 sqM) Est GFR (CKD-EPI)NonAf (>60 ml/min/1.73 sqM) Glucose (74-99) mg/dL Estimated Ave Glu mg/dL 105 Hemoglobin A1c (4.0-6.0) % 5.3 Plasma Lactic Acid Jus (0.7-2.0) mmol/L 1.2 Calcium (8.4-10.2) mg/dL Total Bilirubin (0.2-1.3) mg/dL AST (17-59) U/L ALT (4-49) U/L Alkaline Phosphatase (38-126) U/L Creatine Kinase (55-170) U/L Total Protein (6.3-8.2) g/dL Albumin (3.5-5.0) g/dL Triglycerides (<150) mg/dL 120 Cholesterol (<200) mg/dL 155 LDL Cholesterol, Calc (0-99) mg/dL 101 H HDL Cholesterol (40-60) mg/dL 30 L TSH (0.465-4.680) mIU/L 0.725 Salicylates mg/dL Urine Opiates Screen (NotDetected) Ur Oxycodone Screen (NotDetected) Urine Methadone Screen (NotDetected) Ur Propoxyphene Screen (NotDetected) Acetaminophen ug/mL Ur Barbiturates Screen (NotDetected) U Tricyclic Antidepress (NotDetected) Ur Phencyclidine Scrn (NotDetected) Ur Amphetamines Screen (NotDetected) U Methamphetamines Scrn (NotDetected) U Benzodiazepines Scrn (NotDetected) Urine Cocaine Screen (NotDetected) U Marijuana (THC) Screen (NotDetected) Serum Alcohol mg/dL Procedures: Plan: Patient will continue follow-up at-. As per discharge plan Continue the following medications: As per discharge plan Patient Condition at Discharge: Stable Patient will be discharge to home Patient Condition at Discharge: Stable Plan - Discharge Summary Discharge Rx Participant: No New Discharge Prescriptions: New ARIPiprazole [Abilify] 2 mg PO DAILY 30 Days #30 tab Gabapentin [Neurontin] 800 mg PO TID 30 Days #180 cap Continue Ergocalciferol [Vitamin D2 (DRISDOL)] 50,000 unit PO Q7D Melatonin 10 mg PO HS 28 Days #28 tablet levETIRAcetam [Keppra] 500 mg PO BID 7 Days #14 tab Vortioxetine Hydrobromide [Trintellix] 10 mg PO DAILY 30 Days #30 tablet hydrOXYzine PAMOATE [Vistaril] 50 mg PO TID PRN 30 Days #90 cap PRN Reason: Anxiety Discontinued Ibuprofen [Motrin] 600 mg PO QID PRN 28 Days tab PRN Reason: MODERATE Pain Nicotine 21Mg/24Hr Patch [Habitrol] 1 patch TRANSDERM DAILY 14 Days #14 patch Gabapentin [Neurontin] 600 mg PO TID 28 Days #168 cap Mirtazapine [Remeron] 15 mg PO HS 28 Days #28 tab OLANZapine [ZyPREXA] 10 mg PO HS 28 Days #28 tab OLANZapine [ZyPREXA] 5 mg PO DAILY Discharge Medication List Ergocalciferol [Vitamin D2 (DRISDOL)] 50,000 unit PO Q7D 07/12/19 [History] Melatonin 10 mg PO HS 28 Days #28 tablet 07/21/19 [Rx] ARIPiprazole [Abilify] 2 mg PO DAILY 30 Days #30 tab 09/04/19 [Rx] Gabapentin [Neurontin] 800 mg PO TID 30 Days #180 cap 09/04/19 [Rx] Vortioxetine Hydrobromide [Trintellix] 10 mg PO DAILY 30 Days #30 tablet 09/04/19 [Rx] hydrOXYzine PAMOATE [Vistaril] 50 mg PO TID PRN 30 Days #90 cap 09/04/19 [Rx] levETIRAcetam [Keppra] 500 mg PO BID 7 Days #14 tab 09/04/19 [Rx] Follow up Appointment(s)/Referral(s): [facility] [Outside] - 09/10/19 8:30 am (Walk In Intake) [facility] [NON-STAFF] - 1 Week Patient Instructions/Handouts: Bipolar Disorder (DC), Depression (DC), Opioid Withdrawal (DC) Activity/Diet/Wound Care/Special Instructions: Activity and diet as tolerated. Avoid the use of street drugs and alcohol. Take all medications as prescribed. When you are in need of refills on your medications please contact your medical provider and/or outpatient psychiatrist to have this done. Please go to scheduled outpatient appointment for aftercare treatment. If symptoms return or become worse, call the crisis line at and/or go to the nearest emergency room for evaluation. Discharge Disposition: HOME SELF-CARE
== END 2019-09-04 10:36 | disposition home or self-care (01) | DRG 897 ==
LOC: EC 17:13 → 3MHU 20:39
PROVIDERS: ADMIT Psychiatry & Neurology Psychiatry; ATTEND Psychiatry & Neurology Psychiatry
DX: F11.24 Opioid dependence with opioid-induced mood disorder (principal); F11.23 Opioid dependence with withdrawal; F17.200 Nicotine dependence, unspecified, uncomplicated; G40.909 Epilepsy, unspecified, not intractable, without status epilepticus; T40.1X2A Poisoning by heroin, intentional self-harm, initial encounter; Z79.899 Other long term (current) drug therapy; Z82.49 Family history of ischemic heart disease and other diseases of the circulatory system; Z86.15 Personal history of latent tuberculosis infection; Z91.19 Patient's noncompliance with other medical treatment and regimen; Z91.5 Personal history of self-harm; T43.96XA Underdosing of unspecified psychotropic drug, initial encounter; Z91.128 Patient's intentional underdosing of medication regimen for other reason; B19.20 Unspecified viral hepatitis C without hepatic coma; Z86.14 Personal history of Methicillin resistant Staphylococcus aureus infection; F31.9 Bipolar disorder, unspecified
CPT/HCPCS: 36415; 80053; 80061; 80306; 80320; 80329; 82075; 82550; 83036; 83520; 83605; 84443; 85025; 93005; 99285

== ENCOUNTER 2020-09-15 14:40 | Inpatient (IN) | payer MEDICAID, OTHER ==
--- NOTE | 2020-09-15 15:13 | ED ---
Psych HPI - General Chief Complaint: Psychiatric Symptoms Stated Complaint: Mental health Time Seen by Provider: 09/15/20 14:52 Source: patient Mode of arrival: ambulatory - History of Present Illness Initial Comments: 34yo presenting for suicidal ideations wtih attempt. pt states he attempted to overdose with meth and heroin last night. he states it did not work. denies attempt of overdose with ibuprofen, tylenol or additional substances. pt denies physical complaints. he states he is feeling depressed. pt denies homicidal ideations. - Related Data Previous Rx's Medication Instructions Recorded levETIRAcetam [Keppra] 500 mg PO BID 7 Days #14 tab 09/04/19 Allergies Allergy/AdvReac Type Severity Reaction Status Date / Time No Known Allergies Allergy Verified 09/15/20 16:29 Review of Systems ROS Statement: Those systems with pertinent positive or pertinent negative responses have been documented in the HPI. ROS Other: All systems not noted in ROS Statement are negative. Past Medical History Past Medical History: GERD/Reflux, Liver Disease, Seizure Disorder Additional Past Medical History / Comment(s): polysubstance drug abuse, hepatitis C, latent TB History of Any Multi-Drug Resistant Organisms: MRSA Date of last positivie culture/infection: 2010 MDRO Source:: RIGHT FOREARM Past Surgical History: Orthopedic Surgery Additional Past Surgical History / Comment(s): right elbow Past Anesthesia/Blood Transfusion Reactions: No Reported Reaction Past Psychological History: Anxiety, Depression Smoking Status: Current every day smoker Past Alcohol Use History: None Reported Past Drug Use History: Cocaine, Heroin, IV Drug Use, Methamphetamine, Opiates - Past Family History Father Additional Family Medical History / Comment(s): Father is alive at age 58 with no major medical problems of the patient is aware of. Mother Family Medical History: Hypertension Additional Family Medical History / Comment(s): Mother has history of hypertension and is age 57. Patient has 2 brothers and 2 sisters with no major medical problems. General Exam - General Exam Comments Initial Comments: General: The patient is awake and alert, in no distress Eye: Pupils are equal, round and reactive to light, extra-ocular movements are intact. No nystagmus. There is normal conjunctiva bilaterally. No signs of icterus. Ears, nose, mouth and throat: There are moist mucous membranes and no oral lesions. Neck: The neck is supple, there is no tenderness or JVD. Cardiovascular: There is a regular rate and rhythm. No murmur, rub or gallop is appreciated. Respiratory: Lungs are clear to auscultation, respirations are non-labored, breath sounds are equal. No wheezes, stridor, rales, or rhonchi. Gastrointestinal: Soft, non-distended, non-tender abdomen without masses or organomegaly noted. There is no rebound or guarding present. Musculoskeletal: Normal ROM, no tenderness. Strength 5/5. Sensation intact. Radial pulses equal bilaterally 2+. Neurological: A&O x 3. CN II-XII intact grossly, There are no obvious motor or sensory deficits. Coordination appears grossly intact. Speech is normal. Skin: Skin is warm and dry and no rashes or lesions are noted. Psychiatric: Cooperative Limitations: no limitations Course Vital Signs 09/15/20 14:46 Temperature 97.9 F Pulse Rate 118 H Respiratory 22 Rate Blood Pressure 133/82 O2 Sat by Pulse 97 Oximetry Medical Decision Making - Medical Decision Making Suicidal pt with attempted OD with IV drug yesterday. NO oral overdose of tylenol, aspirin or other medications. pt has no other plans. denies homicidal ideations ROS otherwise (-). Pt signed in to psychiatric unit after EPS evaluation. I am agreeable to this care plan. - Lab Data Lab Results 09/15/20 09/15/20 Range/Units 15:44 15:44 Urine Color Yellow Urine Appearance Clear (Clear) Urine pH 5.5 (5.0-8.0) Ur Specific [place] 1.030 (1.001-1.035) Urine Protein 1+ H (Negative) Urine Glucose (UA) Negative (Negative) Urine Ketones 4+ H (Negative) Urine Blood Small H (Negative) Urine Nitrite Negative (Negative) Urine Bilirubin 1+ H (Negative) Urine Urobilinogen 2.0 (<2.0) mg/dL Ur Leukocyte Esterase Negative (Negative) Urine RBC <1 (0-5) /hpf Urine WBC 1 (0-5) /hpf Ur Squamous Epith Cells <1 (0-4) /hpf Urine Mucus Rare H (None) /hpf Urine Opiates Screen Not Detected (NotDetected) Ur Oxycodone Screen Not Detected (NotDetected) Urine Methadone Screen Not Detected (NotDetected) Ur Propoxyphene Screen Not Detected (NotDetected) Ur Barbiturates Screen Not Detected (NotDetected) U Tricyclic Antidepress Not Detected (NotDetected) Ur Phencyclidine Scrn Not Detected (NotDetected) Ur Amphetamines Screen Detected H (NotDetected) U Methamphetamines Scrn Detected H (NotDetected) U Benzodiazepines Scrn Not Detected (NotDetected) Urine Cocaine Screen Not Detected (NotDetected) U Marijuana (THC) Screen Not Detected (NotDetected) Coronavirus (PCR) Not Detected (Not Detectd) Disposition Clinical Impression: Suicidal ideation, Suicide attempt Disposition: TRANSFER TO PSYCH HOSP/UNIT Condition: Serious Is patient prescribed a controlled substance at d/c from ED?: No Referrals: Mare Pretty MD [Primary Care Provider] - 1-2 days Time of Disposition: 17:05 Decision to Admit Reason: Admit from EC Decision Date: 09/15/20 Decision Time: 17:05
[2020-09-15 15:58] LABS: Appearance,Urine Clear (Clear); Bilirubin,Urine 1+ (Negative); Blood,Urine Small (Negative); Color,Urine Yellow; Glucose,Urine (UA) Negative (Negative); Ketones,Urine 4+ (Negative); Leukocyte Esterase,Urine Negative (Negative); Mucus,Urine Rare /hpf; Nitrite,Urine Negative (Negative); PH, Urine 5.5 (5.0-8.0); Protein,Urine 1+ (Negative); RBC,Urine <1 /hpf (0-5); Squamous Epithelial Cell,Urine <1 /hpf (0-4); WBC,Urine 1 /hpf (0-5)
[2020-09-15 16:11] LABS: Amphetamine Screen,Urine Detected (NotDetected); Barbiturate Screen,Urine Not Detected (NotDetected); Benzodiazepines Screen,Urine Not Detected (NotDetected); Cocaine Screen,Urine Not Detected (NotDetected); Methadone Screen, Urine Not Detected (NotDetected); Opiate Screen,Urine Not Detected (NotDetected); Oxycodone Screen, Urine Not Detected (NotDetected); Phencyclidine Screen,Urine Not Detected (NotDetected); Tricyclic Antidepressant,Urine Not Detected (NotDetected); Urn Cannabinoid Scrn Not Detected (NotDetected)
[2020-09-15] MEDS ORDERED: MAGNESIUM HYDROXIDE 2,400 MG/10 ML CUP PO PRN (20:17)
[2020-09-15] MEDS ORDERED: LORazepam 1 MG TAB PO PRN (20:17)
[2020-09-15] MEDS ORDERED: MAG HYDROX/AL HYDROX/SIMETH 30 ML CUP PO PRN (20:17)
[2020-09-15] MEDS ORDERED: LORazepam 2 MG/ML INJ IM PRN (20:23)
[2020-09-15] MEDS ORDERED: HALOPERIDOL LACTATE 5 MG/ML 1 ML VIAL IM PRN (20:25)
[2020-09-15] MEDS ORDERED: haloperidoL 5 MG TAB PO PRN (20:30)
[2020-09-15] MEDS: levETIRAcetam 500 MG TAB PO SCH (21:27)
[2020-09-16 07:40] LABS: Basophils # (A) 0.1 k/uL (0-0.2); Basophils % (A) 1 %; Eosinophils # (A) 0.3 k/uL (0-0.7); Eosinophils % (A) 3 %; HGB 16.5 gm/dL (13.0-17.5); Lymphocytes # (A) 2.2 k/uL (1.0-4.8); Lymphocytes % (A) 22 %; MCH 31.4 pg (25.0-35.0); MCHC 33.7 g/dL (31.0-37.0); MCV 93.2 fL (80.0-100.0); Mean Platelet Volume 8.1; Monocytes # (A) 0.7 k/uL (0-1.0); Monocytes % (A) 7 %; Neutrophils # (A) 6.3 k/uL (1.3-7.7); Neutrophils % (A) 65 %; Platelet Count 169 k/uL (150-450); RBC 5.26 m/uL (4.30-5.90); RDW 13.2 % (11.5-15.5); WBC 9.8 k/uL (3.8-10.6)
[2020-09-16 07:48] LABS: ALT 136 U/L (4-49); AST 112 U/L (17-59); African American GFR (CKD) >90 (>60 ml/min/1.73 sqM); Albumin 4.7 g/dL (3.5-5.0); Alkaline Phosphatase 57 U/L (38-126); Anion Gap 11 mmol/L; Blood Urea Nitrogen 27 mg/dL (9-20); Calcium 9.4 mg/dL (8.4-10.2); Carbon Dioxide 21 mmol/L (22-30); Chloride 105 mmol/L (98-107); Cholesterol 185 mg/dL (<200); Glucose 99 mg/dL (74-99); HDL Cholesterol 41 mg/dL (40-60); LDL Cholesterol,Calculated 125 mg/dL (0-99); Non-African American GFR(CKD) >90 (>60 ml/min/1.73 sqM); Sodium 137 mmol/L (137-145); Total Bilirubin 3.4 mg/dL (0.2-1.3); Total Protein 8.3 g/dL (6.3-8.2); Triglycerides 93 mg/dL (<150)
[2020-09-16 07:53] LABS: Potassium 4.8 mmol/L (3.5-5.1)
[2020-09-16] MEDS: NICOTINE 14MG/24HR PATCH TRANSDERM SCH (09:14)
[2020-09-16] MEDS: levETIRAcetam 500 MG TAB PO SCH ×2 (09:25→21:20)
[2020-09-16] MEDS: OLANZapine 5 MG TAB PO SCH ×3 (09:25→21:23)
--- NOTE | 2020-09-16 10:27 | HP ---
HISTORY AND PHYSICAL PSYCHIATRIC ADMISSION NOTE IDENTIFYING DATA: The patient is a 34-year-old male. He has an unstable living situation. He was referred through the ED for evaluation. CHIEF COMPLAINT: The patient presented with suicidal thinking. He had attempted overdose with methamphetamine and heroin though said it only made him high. HISTORY OF PRESENTING ILLNESS: The patient has long-term substance abuse and psychiatric issues. He has had a number of psychiatric hospitalizations including in this facility. Of note is that I did an admission note on the patient on 07/13/2019. I refer the reader to that admission note for details. His current situation is very similar to that admission 1 year ago. Perhaps the only difference is that at that time he was abusing Xanax and had a short- term withdrawal with Ativan to decrease risk for seizures. His current situation is that he has been using abusive substances consistently throughout the last year. In fact, the patient has not had an extended period of withdrawal other than when he has been in some treatment programs. He said his last period of sobriety was just during the period that he was in [place] in February. His drug of choice is heroin, though he says he believes that mostly he ends up receiving fentanyl when he does heroin. He notes that that has been the only drug he has done of late, which is the best that he is aware of. On the other hand, his urine drug screen was positive only for amphetamines and methamphetamines. The patient notes that he has significant stress around the holiday season. He says that he just will start getting down in his mood and then his thinking eventually gets to the point where he says to himself he would be better off . He noted one holiday about 5 years ago when in June he had a girl who was in the car with him dying of heroin overdose. He said he had extreme stress over that and the rest of that year things got worse and worse for him. He continues to have flashbacks to that as well as other deaths that he has witnessed. He has been in a number of treatment programs. He said he is hopeful to have an admission to [facility] in [place] for long-term treatment. He says he has made contact with [facility] and is waiting on the admission process. He says currently he has had significant depression, which is typical for him around the holidays. He denies hallucinations. He does get paranoid and will have fears that people are out to get him in one way or another. He describes anxiety and panic symptoms. He has posttraumatic symptoms. He says that he does not really recognize traumatic issues from childhood, though does note that in his growing up his mother did pills and his father drank. He notes that he has been sleeping poorly of late. His appetite is down. He has loss of energy, motivation, and interest. He is currently not on any psychotropic medications and has not had any mental health followup in the last year. He said that when he left this hospital from his last admission, which was in August of 2019. He did not get any regular followup. He is admitted for further evaluation. SUBSTANCE USE HISTORY: As above. PAST MEDICAL HISTORY: Patient reports seizure disorder and takes Keppra. He said it has been "quite a long time" since his last seizure. FAMILY AND SOCIAL HISTORY: Patient was the youngest of 3 children from his parents. His parents split up when he was 1. His father had two other children. Initially there was not split custody, though eventually he started going between both households. The patient graduated from high school. He said he did some college [place] [employer] [place] around age of 28. 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 MENTAL STATUS EXAM: Patient sat with a fair amount a restlessness. He shook his legs throughout the interview. He moved in different positions. He gave fair eye contact. He answered questions with brief responses. His thoughts were clear, coherent, and goal directed. He was not too spontaneous, though he was somewhat interactive. His affect was anxious and constricted. His mood depressed. He was significantly distressed. There was no indication of thought disorder. On cognitive exam, he was oriented x3 and alert. Recent and remote memory were intact. He could give the days of the week in reverse order without difficulty. He could do serial 3 subtraction. Insight and judgment were fair. Fund of knowledge average to above average. PHYSICAL EXAM: As per medical consultation. ASSESSMENT: This 34-year-old male struggles with long-term substance abuse issues and depression. He has had a past diagnosis of bipolar disorder though does not clearly identify any discrete manic episodes. The primary issue that he struggles with is long-term substance abuse. As noted from my previous admission note, his longest period of sobriety that he reported then was 14 months in 2013 when he went into [place] and was then discharged to a 3/4 house. Strengths include [place] [employer]. Weaknesses includes persistent use of abusive substances. DIAGNOSES: 1. Major depression chronic and recurrent, severe, without psychotic features. 2. Substance dependence and acute substance withdrawal including heroin and methamphetamine. 3. Seizure disorder. RECOMMENDATIONS: Patient will be admitted for comprehensive medical psychiatric and psychosocial evaluation. We will engage the patient in individual and group therapeutic activities I will start the patient on Zyprexa 5 mg 3 times a day. Initially, the patient was reluctant to consider going on Zyprexa stating that he believes it makes him tired. On the other hand, he did express concern about not being able to sleep at night. It is noteworthy that I reviewed progress notes from his July 2019 admission and he seemed to do reasonably well on Zyprexa with a discharge dose of 5 mg twice a day 10 at bedtime. The patient asked about continuing Ativan which he had received last night. I noted with the patient that he was on Ativan a year ago specifically for withdrawal from Xanax though at this time any benzodiazepines would not be appropriate as the primary issue is to initiate withdrawal and to help with non habit-forming medications to manage early withdrawal. I will start the patient on Vistaril 50 mg at bedtime, which the patient said he used in the past with some benefit. It is noteworthy that the patient stated he was concerned about other antipsychotic medications such as Seroquel which he believes has cause restlessness. I indicated that Zyprexa has the lowest risk of EPS of antipsychotics. I discussed that though he is struggling with depression at this time that antidepressants have virtually no benefit in the first 6 or 8 weeks of withdrawal and that the focus is to help him manage early withdrawal issues. There might be consideration for use of clonidine, though his blood pressure is in the lower moderate range, so would not be indicated at this time. If things progress in a positive way for the patient, he might be able to be referred to [facility] for further care. We will focus on stabilization and discharge planning. MMTERRANCEL / NEFTALIN: [id number] /
--- NOTE | 2020-09-16 15:26 | P.CONS ---
History of Present Illness - Reason for Consult Consult date: 09/16/20 Medical management - Chief Complaint Suicidal ideation - History of Present Illness 34yo presenting for suicidal ideations wtih attempt. pt states he attempted to overdose with meth and heroin last night. he states it did not work. denies attempt of overdose with ibuprofen, tylenol or additional substances. pt denies physical complaints. he states he is feeling depressed. pt denies homicidal deepika ations. Review of Systems REVIEW OF SYSTEMS: CONSTITUTIONAL: No fever, no malaise, no fatigue. HEENT: No recent visual problems or hearing problems. Denied any sore throat. CARDIOVASCULAR: No chest pain, orthopnea, PND, no palpitations, no syncope. PULMONARY: No shortness of breath, no cough, no hemoptysis. GASTROINTESTINAL: No diarrhea, no nausea, no vomiting, no abdominal pain. NEUROLOGICAL: No headaches, no weakness, no numbness. HEMATOLOGICAL: Denies any bleeding or petechiae. GENITOURINARY: Denies any burning micturition, frequency, or urgency. MUSCULOSKELETAL/RHEUMATOLOGICAL: Denies any joint pain, swelling, or any muscle pain. ENDOCRINE: Denies any polyuria or polydipsia. The rest of the 14-point review of systems is negative. Past Medical History Past Medical History: GERD/Reflux, Liver Disease, Seizure Disorder Additional Past Medical History / Comment(s): polysubstance drug abuse, hepatitis C, latent TB History of Any Multi-Drug Resistant Organisms: MRSA Year Discovered:: 2010 MDRO Source:: RIGHT FOREARM Past Surgical History: Orthopedic Surgery Additional Past Surgical History / Comment(s): right elbow Past Anesthesia/Blood Transfusion Reactions: No Reported Reaction Past Psychological History: Anxiety, Depression Smoking Status: Current every day smoker Past Alcohol Use History: None Reported Additional Past Alcohol Use History / Comment(s): Patient is a smoker of 1 pack or more per day since he was 15 years of age. He denies any alcohol use. Patient admits to battling with polysubstance use for several years. He admits to injecting cocaine most recently. Pt. also admits that he was using fentanyl recently while taking 4-6tablets of xanax per day. Past Drug Use History: Cocaine, Heroin, IV Drug Use, Methamphetamine, Opiates Additional Drug Use History / Comment(s): Herion and Xanax abuse - Past Family History Father Additional Family Medical History / Comment(s): Father is alive at age 58 with no major medical problems of the patient is aware of. Mother Family Medical History: Hypertension Additional Family Medical History / Comment(s): Mother has history of hypertension and is age 57. Patient has 2 brothers and 2 sisters with no major medical problems. Medications and Allergies Home Medications Medication Instructions Recorded Confirmed Type levETIRAcetam [Keppra] 500 mg PO BID 7 Days #14 tab 09/04/19 09/15/20 Rx Allergies Allergy/AdvReac Type Severity Reaction Status Date / Time No Known Allergies Allergy Verified 09/15/20 16:29 Physical Exam Vitals: Vital Signs Temp Pulse Pulse Resp BP BP Pulse Ox 09/16/20 06:11 97.7 F 87 18 114/61 09/15/20 20:45 98.2 F 84 18 123/83 97 09/15/20 20:18 16 09/15/20 19:26 98.0 F 100 18 136/78 96 09/15/20 14:46 97.9 F 118 H 22 133/82 97 Intake and Output 09/15/20 09/16/20 09/16/20 22:59 06:59 14:59 Other: Weight 88.3 kg PHYSICAL EXAMINATION: GENERAL: The patient is alert and oriented x3, not in any acute distress. Well developed, well nourished. HEENT: Pupils are round and equally reacting to light. EOMI. No scleral icterus. No conjunctival pallor. Normocephalic, atraumatic. No pharyngeal erythema. No thyromegaly. CARDIOVASCULAR: S1 and S2 present. No murmurs, rubs, or gallops. PULMONARY: Chest is clear to auscultation, no wheezing or crackles. ABDOMEN: Soft, nontender, nondistended, normoactive bowel sounds. No palpable organomegaly. MUSCULOSKELETAL: No joint swelling or deformity. EXTREMITIES: No cyanosis, clubbing, or pedal edema. NEUROLOGICAL: Gross neurological examination did not reveal any focal deficits. SKIN: No rashes. Results CBC & Chem 7: 09/16/20 07:15 09/16/20 07:15 Labs: Abnormal Lab Results - Last 24 Hours (Table) 09/15/20 09/16/20 Range/Units 15:44 07:15 Carbon Dioxide 21 L (22-30) mmol/L BUN 27 H (9-20) mg/dL Creatinine 0.62 L (0.66-1.25) mg/dL Total Bilirubin 3.4 H (0.2-1.3) mg/dL AST 112 H (17-59) U/L ALT 136 H (4-49) U/L Total Protein 8.3 H (6.3-8.2) g/dL LDL Cholesterol, Calc 125 H (0-99) mg/dL Urine Protein 1+ H (Negative) Urine Ketones 4+ H (Negative) Urine Blood Small H (Negative) Urine Bilirubin 1+ H (Negative) Urine Mucus Rare H (None) /hpf Ur Amphetamines Screen Detected H (NotDetected) U Methamphetamines Scrn Detected H (NotDetected) Assessment and Plan Assessment: 1. Seizure disorder; continue with Keppra 500 mg twice a day; remains on seizure precautions 2. Transaminitis; history of hepatitis C; we will monitor transaminases to ensure stability; plan to order hepatic ultrasound if liver enzymes continue to trend up 3. Mild renal injury/dehydration; patient encourage increased fluid intake 4. Suicidal ideation/depression; your management 5. Polysubstance abuse; counseling done DVT prophylaxis; early ambulation CODE STATUS; full code
[2020-09-16] MEDS: hydrOXYzine pamoate 25 MG CAP PO SCH (21:20)
[2020-09-16] MEDS: IBUPROFEN 800 MG TAB PO PRN (21:22)
[2020-09-17] MEDS: ACETAMINOPHEN TAB 325 MG TAB PO PRN (08:23)
[2020-09-17] MEDS: OLANZapine 5 MG TAB PO SCH ×3 (08:23→20:54)
[2020-09-17] MEDS: NICOTINE 14MG/24HR PATCH TRANSDERM SCH (08:23)
[2020-09-17] MEDS: levETIRAcetam 500 MG TAB PO SCH ×2 (08:23→20:52)
[2020-09-17 10:38] LABS: Albumin 3.8 g/dL (3.5-5.0); Bilirubin, Delta 0.1 mg/dL (0.0-0.2); Bilirubin,Unconjugated 0.9 mg/dL (0.0-1.1); Total Protein 6.9 g/dL (6.3-8.2)
--- NOTE | 2020-09-17 10:56 | P.PN ---
Progress Note - Text Progress Note Date: 09/17/20 Interval history: Patient was seen resting in bed and was directable and agreeable to speak with ad writer. Patient is currently not reporting any significant issues at this time. He is not reporting any suicidal or homicidal ideation, intention, and/or plan. He is not reporting any auditory or visual hallucinations. He states that he is coming off his substance use and Zyprexa seems to be helpful but he is feeling sedated with the medication. He does not wish to go down on the medication at this time though. He denies any paranoia or delusions. He has been noted to sleep for 6 hours last night. He did not attend group. Mental status exam: General Appearance: Patient appears to be stated age is alert, directable, and cooperative. Hygiene and grooming appear fair. Behavior: No agitated behavior. Patient is calm and directable. Good eye contact. Speech: Patient's speech is fluent and nonpressured. Monotone. Low in volume. Mood/Affect: Mood is improving mildly, affect is congruent and constricted. Suicidality/Homicidality: Patient denies having any suicidal or homicidal ideation intent or plan. Perceptions: Patient denies any auditory or visual hallucinations. Though content/process: There is no evidence of any delusional thought content and thought process is linear and goal-directed. Memory and concentration: AOX3, grossly intact for the purposes of this session Judgment and insight: improving mildly Assessment/Plan: Continue with current diagnosis. Patient continues to meet criteria for inpatient psychiatric admission for symptom stabilization and safety. Patient is currently on Zyprexa 5 mg by mouth 3 times a day and Keppra. He will be maintained on current psychotropic medication regimen. Monitor for medication compliance and for any psychotropic medication side effects. Will continue to monitor ongoing response to treatment. Encouraged participation in milieu.
[2020-09-17] MEDS: IBUPROFEN 800 MG TAB PO PRN (16:40)
[2020-09-17] MEDS: hydrOXYzine pamoate 25 MG CAP PO SCH (20:52)
[2020-09-18] MEDS: OLANZapine 5 MG TAB PO SCH (08:01)
[2020-09-18] MEDS: levETIRAcetam 500 MG TAB PO SCH ×2 (08:01→20:44)
[2020-09-18] MEDS: IBUPROFEN 800 MG TAB PO PRN ×2 (08:01→20:45)
[2020-09-18] MEDS: NICOTINE 14MG/24HR PATCH TRANSDERM SCH ×2 (08:01→10:33)
[2020-09-18] MEDS ORDERED: PANTOPRAZOLE 40 MG TABLET PO STA (10:04)
[2020-09-18] MEDS: hydrOXYzine pamoate 25 MG CAP PO PRN ×2 (10:33→20:45)
--- NOTE | 2020-09-18 10:53 | P.PN ---
Progress Note - Text Progress Note Date: 09/18/20 Interval history: Patient was seen resting in bed and was directable and agreeable to speak with bid writer. The patient is currently expressing a has elevated anxiety. He states that he has been having racing thoughts about the future and other worries. He is not reporting any suicidal or homicidal ideation, intention, and/or plan. He does report racing thoughts have interfered with his sleep. He is currently requesting any medication that may help him with this. He is not reporting any auditory or visual hallucinations. He denies any paranoia. He has been adherent with his medications and is not reporting any significant side effects at this time. Mental status exam: General Appearance: Patient appears to be stated age is alert, directable, and cooperative. Hygiene and grooming appear fair. Behavior: No agitated behavior. Patient is calm and directable. Good eye contact. Psychomotor activity slightly elevated. The patient's leg is constantly moving. Speech: Patient's speech is fluent and nonpressured. Monotone. Low in volume. Mood/Affect: Mood is anxious, affect is congruent and nervous. Suicidality/Homicidality: Patient denies having any suicidal or homicidal ideation intent or plan. Perceptions: Patient denies any auditory or visual hallucinations. Though content/process: There is no evidence of any delusional thought content and thought process is linear and goal-directed. Memory and concentration: AOX3, grossly intact for the purposes of this session Judgment and insight: improving mildly Assessment/Plan: Continue with current diagnosis. Patient continues to meet criteria for inpatient psychiatric admission for symptom stabilization and safety. We'll increase Zyprexa to 10 mg by mouth twice a day. We will change the patient's Vistaril to 50 mg 3 times a day when necessary for anxiety. Monitor for medication compliance and for any psychotropic medication side effects. Will continue to monitor ongoing response to treatment. Encouraged participation in milieu.
[2020-09-18] MEDS: OLANZapine 10 MG TAB PO SCH (20:43)
[2020-09-19] MEDS: levETIRAcetam 500 MG TAB PO SCH ×2 (08:47→20:43)
[2020-09-19] MEDS: NICOTINE 14MG/24HR PATCH TRANSDERM SCH (08:48)
[2020-09-19] MEDS: hydrOXYzine pamoate 25 MG CAP PO PRN ×2 (08:49→18:49)
[2020-09-19] MEDS: OLANZapine 10 MG TAB PO SCH (08:49)
[2020-09-19] MEDS: IBUPROFEN 800 MG TAB PO PRN ×2 (08:49→18:48)
[2020-09-19] MEDS: PALIPERIDONE 3 MG TAB.ER.24 PO SCH (09:23)
--- NOTE | 2020-09-19 09:25 | P.PN ---
Progress Note - Text Progress Note Date: 09/19/20 Interval History: Patient was seen wandering the hallways and was directable and agreeable to goldy cooney with poem writer in the office. Patient appeared to be calm during the interview however claims that he is feeling paranoid. He claims that he feels Zyprexa is not helping him with his paranoid thoughts and believes that other people are talking about him on the unit or plotting against him. He feels that he is more groggy being on the Zyprexa and would like to have his medication switch. He cl aims that he had good effects with Risperdal in the past and was agreeable to start paliperidone today. He claims that his mood is also been depressed and also complains of anxiety. He states that the Vistaril has been helping with his anxiety throughout the day. He claims that he does not feel safe to go home at this time. He claims that his suicidal thoughts have been gradually declining. He states that he was able to sleep "a few hours" last night however claims that he still wakes up at nighttime. At this time patient denies any suicidal or homical ideations, intent or plan. Patient denies any auditory, visual hallucinations. Patient denies any side effects from the medications and has been compliant with meds. Mental Status Exam: General Appearance: [Patient appears to be tall, stated age is alert, directable, and attempts to be cooperative.] Paranoid. Fair hygiene and grooming. Behavior: [Patient is calmly seated without any agitated behavior.] Paranoid at times. Speech: Patient's speech is fluent and nonpressured. Mood/Affect: Mood is depressed, affect is congruent and constricted. Suicidality/Homicidality: Patient denies having any suicidal or homicidal ideation intent or plan. Perceptions: Patient denies any visual hallucinations [and denies any auditory hallucinations] Though content/process: There is no evidence of any delusional thought content and thought process is linear and goal-directed. Paranoid thoughts. Her racing thoughts. Memory and concentration: AOX3, grossly intact for the purposes of this session Judgment and insight: Poor, Improving mildly Assessment Major depressive disorder, recurrent, severe with psychotic feature opioid use disorder Methamphetamine abuse Nicotine dependence Plan: -Patient continues to meet criteria for inpatient psychiatric admission for symptom stabilization and safety. Patient has signed adult voluntary form and medication consent and was placed in patient's chart. -Medications: Discontinued Zyprexa at this time due to poor adverse effects and tolerability. Patient is agreeable to start paliperidone 3 mg daily for psychosis/mood stabilization. Patient is also agreeable to start trintellix 10 mg daily for mood. -When necessary Haldol for agitation/aggression. Vistaril when necessary for anxiety. -NRT - nicotine patch -SW on board for discharge planning. Encouraged the patient to participate in milieu. Patient claims that he would like to get into rehab in [place] as that's where his family is from. Likely discharge in 2-3 days.
[2020-09-19] MEDS: VORTIOXETINE HYDROBROMIDE 10 MG TABLET PO SCH (09:46)
[2020-09-19] MEDS: ACETAMINOPHEN TAB 325 MG TAB PO PRN (20:43)
[2020-09-19] MEDS ORDERED: MELATONIN 5 MG TABLET PO SCH (21:00)
[2020-09-20 06:33] VITALS: BP 97/57; PULSE 54; RESP 15
[2020-09-20] MEDS: VORTIOXETINE HYDROBROMIDE 10 MG TABLET PO SCH (07:46)
[2020-09-20] MEDS: IBUPROFEN 800 MG TAB PO PRN ×2 (07:47→20:51)
[2020-09-20] MEDS: NICOTINE 14MG/24HR PATCH TRANSDERM SCH (07:47)
[2020-09-20] MEDS: hydrOXYzine pamoate 25 MG CAP PO PRN ×3 (07:47→20:51)
[2020-09-20] MEDS: PALIPERIDONE 3 MG TAB.ER.24 PO SCH ×3 (07:47→20:51)
--- NOTE | 2020-09-20 08:27 | P.PN ---
Progress Note - Text Progress Note Date: 09/20/20 Interval History: Patient was seen after breakfast this morning and was directable and agreeable to speak with poem writer in the office. Patient appeared to be calm during the interview today. He continues to state that he is feeling paranoid about other people on the unit feeling that they are "talking behind my back". He claims that this has not changed much since yesterday. He does claim to be feeling mildly better in terms of his mood and anxiety. He claims that he was feeling mainly groggy yesterday however today he is feeling more awake. He states that he was tossing and turning quite a bit last night and was not able to sleep throughout the night and only received approximately 3-4 hours of sleep. He claims that he is still looking at going to [place] of her rehab however claims that the wait list has been pretty long. He claims he would be okay with going to [place] at this time. He states that the Vistaril has been helping with his anxiety throughout the day. He claims that he does not feel safe to go home at this time. He states that he has been trying to go to groups as best as he can. At this time patient denies any suicidal or homical ideations, intent or plan. Patient denies any auditory, visual hallucinations. Patient denies any side effects from the medications and has been compliant with meds. Mental Status Exam: General Appearance: Patient appears to be tall, stated age is alert, directable, and attempts to be cooperative. Improving hygiene and grooming. Behavior: Patient is calmly seated without any agitated behavior. Paranoid at times. Speech: Patient's speech is fluent and nonpressured. Mood/Affect: Mood is depressed, improving mildly, affect is congruent and constricted. Suicidality/Homicidality: Patient denies having any suicidal or homicidal ideation intent or plan. Perceptions: Patient denies any visual hallucinations and denies any auditory hallucinations Though content/process: There is no evidence of any delusional thought content and thought process is linear and goal-directed. Paranoid thoughts. Memory and concentration: AOX3, grossly intact for the purposes of this session Judgment and insight: Poor, Improving mildly Assessment Major depressive disorder, recurrent, severe with psychotic feature opioid use disorder Methamphetamine abuse Nicotine dependence Plan: -Patient continues to meet criteria for inpatient psychiatric admission for symptom stabilization and safety. Patient has signed adult voluntary form and medication consent and was placed in patient's chart. -Medications: Increased paliperidone 3 mg bid for psychosis/mood stabilization. Continue with trintellix 10 mg daily for mood. Increased melatonin to 10 mg daily at bedtime for sleep. -When necessary Haldol for agitation/aggression. Vistaril when necessary for anxiety. -NRT - nicotine patch -SW on board for discharge planning. Encouraged the patient to participate in milieu. Patient claims that the wait list to get into [facility] in [place] is too long and instead he is willing to go to [place] for inpt rehab. SW to follow up with pt today to discuss this and potential for discharge in 1-2 days to rehab
[2020-09-20] MEDS: levETIRAcetam 500 MG TAB PO SCH ×2 (08:32→20:51)
[2020-09-20] MEDS: ACETAMINOPHEN TAB 325 MG TAB PO PRN (16:10)
[2020-09-20 18:16] VITALS: TEMP 98.1
[2020-09-20] MEDS ORDERED: MELATONIN 5 MG TABLET PO SCH (21:00)
[2020-09-21] MEDS: IBUPROFEN 800 MG TAB PO PRN (08:01)
[2020-09-21] MEDS: hydrOXYzine pamoate 25 MG CAP PO PRN (08:03)
[2020-09-21] MEDS: PALIPERIDONE 3 MG TAB.ER.24 PO SCH (08:03)
[2020-09-21] MEDS: VORTIOXETINE HYDROBROMIDE 10 MG TABLET PO SCH (08:03)
[2020-09-21] MEDS: levETIRAcetam 500 MG TAB PO SCH (08:03)
[2020-09-21] MEDS: NICOTINE 14MG/24HR PATCH TRANSDERM SCH (08:03)
--- NOTE | 2020-09-21 08:39 | P.DS ---
Providers Date of admission: 09/15/20 20:14 Expected date of discharge: 09/21/20 Attending physician: Feliz Hunt MD Consults: 09/15/20 20:17 Consult Physician Routine Consulting Provider: Cristin Lucio Consult Reason/Comments: H and P Do you want consulting provider notified?: Yes, Notify in am Primary care physician: Mare Pretty - Discharge Diagnosis(es) (1) Major depressive disorder with psychotic features Current Visit: Yes Status: Acute Priority: High (2) Opioid use disorder Current Visit: Yes Status: Acute Priority: Medium (3) Methamphetamine abuse Current Visit: Yes Status: Acute Priority: Medium (4) Nicotine dependence Current Visit: Yes Status: Acute Priority: Low (5) Seizure disorder Current Visit: Yes Status: Acute Priority: Low Hospital Course: Admission HPI: Admission note was completed by Dr. Valadez "the patient is a 34-year-old male. He has unstable living situation. He was referred to the ED for evaluation. The patient presented with suicidal thinking. He attempted to overdose with methamphetamine and heroin though said it only made him high. The patient has long-term substance-abuse psychiatric issues. He has had a number of psychiatric hospitalizations including in this facility. Of note is that I did an admission note on the patient on 07/13/2019. I refer to this admission note for details. His current situation is very similar to that admission 1 year ago. Perhaps the only difference is that at that time he was abusing Xanax and had a short term withdrawal from Ativan to decrease risk for seizures. His current situation is that he has been abusing substances consistently throughout the last year. In fact the patient has not had extended period of withdrawal other than when he has been in some treatment programs. He said his last period of sobriety was just during the period that he believes that mostly he ends up receiving fentanyl when he does heroin. He notes that has been the only drug he has done of late, which is the best that he is aware of. On the other hand his urine drug screen was positive only for amphetamines and methamphetamines. The patient notes that he has significant stress around the holiday season. He says that he just will start getting down in his mood and then his thinking eventually gets the point where he says to himself that he would be better off . He noted when holiday low 5 years ago when in June he had a girl who was in the car with him dying of heroin overdose. He said he had extreme stress over that and the rest of the year things got worse and worse for him. He continues to have flashbacks to that as well as other deaths that he has witnessed. He has been in a number of treatment programs. He said he is hopeful to have an admission to [facility] in [place] for long-term treatment. He says he has made contact with [facility] and is waiting on the admission process. He says currently he is had significant depression which is typical for around the holidays. He denies hallucinations. He does get paranoid and will have fears that people are out to get him in one way or another. He describes anxiety and panic symptoms. He has posttraumatic symptoms. He says he does not really recognize traumatic issues from childhood though does note that in his growing up his mother did pills and his father drank. He notes that he has been sleeping poor as of lately. His appetite is down. He has loss of energy motivation and interest. He is currently not on any psychotropic medications and has had not had any mental health follow-up in the last year. He said that when he left this hospital from his last admission which was in summer 2018 he did not get any regular follow-up. He is admitted for further evaluation." Hospital course: Upon admission to the unit patient was initially depressed and paranoid. Patient was however directable and agreeable to commence treatment and signed adult voluntary form. Patient got along well with other patients on the unit and followed unit protocol. Patient was compliant with the medications and denied any side effects throughout hospital course. Patient was started on Zyprexa however patient was feeling more sedated and was not tolerating medication well and wanted to be switched to paliperidone. Patient's dose of paliperidone was 3 mg twice a day for psychosis/mood stabilization. Patient was also started on trintellix 10mg daily for mood as patient states that he has tolerated this med ication and did well on it in the past. Patient was also started on Vistaril when necessary for anxiety and melatonin daily at bedtime for insomnia. Patient spoke of his stressors and engaged in therapy both group and individual. Patient was also seen by medical team for history and physical exam. Throughout the course of the hospitalization patient gradually improved with regards to mood, psychotic symptoms, anxiety, sleep and became more future oriented with improvement in his insight and judgment. On the day of discharge patient denied any suicidal or homicidal ideations intent or plan denied any auditory or visual hallucinations. Patient endorsed wanting to live for his future and his sobriety. The patient denied any access to guns or weapons. Patient denied any paranoia and did not endorse any delusions. Patient does have a significant history of substance abuse and was counseled on abstaining from all substances including alcohol and marijuana. Patient was offered inpatient rehab and was able to get an intake at [facility] as [facility] had too long of a waitlist for him. Patient was also counseled on the medications and need for regular compliance and was encouraged to follow-up with their outpatient appointment for mental health and also for primary care. Mental status exam: General Appearance: Patient appears to be tall, stated age is alert, directable, and cooperative. Patient is in no acute distress and has improved hygiene and grooming Behavior: Patient is calmly seated without any agitated behavior. Speech: Patient's speech is fluent and nonpressured. Mood/Affect: Patient reports their mood is "better", affect is congruent and constricted. Suicidality/Homicidality: Patient denies having any suicidal or homicidal ideation intent or plan. Perceptions: Patient denies any auditory or visual hallucinations. Though content/process: There is no evidence of any delusional thought content and thought process is linear and goal-directed. more future oriented Memory and concentration: AOX3, grossly intact for the purposes of this session. Can spell "WORLD" backwards correctly. Judgment and insight: chronically poor, however has improved with guarded prognosis Impression: Major depressive disorder, recurrent, severe with psychotic features Opioid abuse disorder Methamphetamine abuse Nicotine dependence Plan: -Continue with discharge today as patient has improved and stabilized psychiatrically and is not currently an imminent threat to himself and/or others. Patient will remain at chronically elevated risk for harm to self and/or others due to his impulsivity and polysubstance abuse. -Continue medications: Continue with paliperidone by mouth 3 mg twice a day for psychosis/mood stabilization, trintellix 10 mg daily for mood, melatonin 10 mg nightly for sleep, Vistaril when necessary for anxiety. -Patient was counseled on the need for medication compliance and appropriate follow-up at mental health and also primary care for medical issues. Patient verbalized understanding and agreed. -Social work to help arrange patient's transfer and intake to [facility] for inpatient substance rehab. Patient will be driven there by [facility] for his intake appointment. Social work also to arrange for patients follow up appointments with [facility] for psychiatric care along with follow up with primary care provider. -Patient counseled on abstaining from recreational drugs and marijuana and alcohol. Was informed/educated on the adverse effects on their physical and mental health. Patient verbally agreed and understood. -Patient was instructed to return to the hospital or seek immediate medical care if their psychiatric or medical symptoms do worsen or reoccur. Allergies Allergy/AdvReac Type Severity Reaction Status Date / Time No Known Allergies Allergy Verified 09/15/20 16:29 Laboratory Results WBC 9.8 k/uL (3.8-10.6) 09/16/20 07:15 RBC 5.26 m/uL (4.30-5.90) 09/16/20 07:15 Hgb 16.5 gm/dL (13.0-17.5) 09/16/20 07:15 Hct 49.0 % (39.0-53.0) 09/16/20 07:15 MCV 93.2 fL (80.0-100.0) 09/16/20 07:15 MCH 31.4 pg (25.0-35.0) 09/16/20 07:15 MCHC 33.7 g/dL (31.0-37.0) 09/16/20 07:15 RDW 13.2 % (11.5-15.5) 09/16/20 07:15 Plt Count 169 k/uL (150-450) 09/16/20 07:15 MPV 8.1 09/16/20 07:15 Neutrophils % 65 % 09/16/20 07:15 Lymphocytes % 22 % 09/16/20 07:15 Monocytes % 7 % 09/16/20 07:15 Eosinophils % 3 % 09/16/20 07:15 Basophils % 1 % 09/16/20 07:15 Neutrophils # 6.3 k/uL (1.3-7.7) 09/16/20 07:15 Lymphocytes # 2.2 k/uL (1.0-4.8) 09/16/20 07:15 Monocytes # 0.7 k/uL (0-1.0) 09/16/20 07:15 Eosinophils # 0.3 k/uL (0-0.7) 09/16/20 07:15 Basophils # 0.1 k/uL (0-0.2) 09/16/20 07:15 Sodium 137 mmol/L (137-145) 09/16/20 07:15 Potassium 4.8 mmol/L (3.5-5.1) 09/16/20 07:15 Chloride 105 mmol/L (98-107) 09/16/20 07:15 Carbon Dioxide 21 mmol/L (22-30) L 09/16/20 07:15 Anion Gap 11 mmol/L 09/16/20 07:15 BUN 27 mg/dL (9-20) H 09/16/20 07:15 Creatinine 0.62 mg/dL (0.66-1.25) L 09/16/20 07:15 Est GFR (CKD-EPI)AfAm >90 (>60 ml/min/1.73 sqM) 09/16/20 07:15 Est GFR (CKD-EPI)NonAf >90 (>60 ml/min/1.73 sqM) 09/16/20 07:15 Glucose 99 mg/dL (74-99) 09/16/20 07:[address] Glu mg/dL 105 09/16/20 07:15 Hemoglobin A1c 5.3 % (4.0-6.0) 09/16/20 07:15 Calcium 9.4 mg/dL (8.4-10.2) 09/16/20 07:15 Total Bilirubin 1.0 mg/dL (0.2-1.3) 09/17/20 10:25 Conjugated Bilirubin 0.0 mg/dL (0.0-0.3) 09/17/20 10:25 Unconjugated Bilirubin 0.9 mg/dL (0.0-1.1) 09/17/20 10:25 Delta Bilirubin 0.1 mg/dL (0.0-0.2) 09/17/20 10:25 AST 65 U/L (17-59) H 09/17/20 10:25 ALT 101 U/L (4-49) H 09/17/20 10:25 Alkaline Phosphatase 48 U/L (38-126) 09/17/20 10:25 Total Protein 6.9 g/dL (6.3-8.2) 09/17/20 10:25 Albumin 3.8 g/dL (3.5-5.0) 09/17/20 10:25 Triglycerides 93 mg/dL (<150) 09/16/20 07:15 Cholesterol 185 mg/dL (<200) 09/16/20 07:15 LDL Cholesterol, Calc 125 mg/dL (0-99) H 09/16/20 07:15 HDL Cholesterol 41 mg/dL (40-60) 09/16/20 07:15 TSH 2.800 mIU/L (0.465-4.680) 09/16/20 07:15 Urine Color Yellow 09/15/20 15:44 Urine Appearance Clear (Clear) 09/15/20 15:44 Urine pH 5.5 (5.0-8.0) 09/15/20 15:44 Ur Specific Breese 1.030 (1.001-1.035) 09/15/20 15:44 Urine Protein 1+ (Negative) H 09/15/20 15:44 Urine Glucose (UA) Negative (Negative) 09/15/20 15:44 Urine Ketones 4+ (Negative) H 09/15/20 15:44 Urine Blood Small (Negative) H 09/15/20 15:44 Urine Nitrite Negative (Negative) 09/15/20 15:44 Urine Bilirubin 1+ (Negative) H 09/15/20 15:44 Urine Urobilinogen 2.0 mg/dL (<2.0) 09/15/20 15:44 Ur Leukocyte Esterase Negative (Negative) 09/15/20 15:44 Urine RBC <1 /hpf (0-5) 09/15/20 15:44 Urine WBC 1 /hpf (0-5) 09/15/20 15:44 Ur Squamous Epith Cells <1 /hpf (0-4) 09/15/20 15:44 Urine Mucus Rare /hpf (None) H 09/15/20 15:44 Urine Opiates Screen Not Detected (NotDetected) 09/15/20 15:44 Ur Oxycodone Screen Not Detected (NotDetected) 09/15/20 15:44 Urine Methadone Screen Not Detected (NotDetected) 09/15/20 15:44 Ur Propoxyphene Screen Not Detected (NotDetected) 09/15/20 15:44 Ur Barbiturates Screen Not Detected (NotDetected) 09/15/20 15:44 U Tricyclic Antidepress Not Detected (NotDetected) 09/15/20 15:44 Ur Phencyclidine Scrn Not Detected (NotDetected) 09/15/20 15:44 Ur Amphetamines Screen Detected (NotDetected) H 09/15/20 15:44 U Methamphetamines Scrn Detected (NotDetected) H 09/15/20 15:44 U Benzodiazepines Scrn Not Detected (NotDetected) 09/15/20 15:44 Urine Cocaine Screen Not Detected (NotDetected) 09/15/20 15:44 U Marijuana (THC) Screen Not Detected (NotDetected) 09/15/20 15:44 Coronavirus (PCR) Not Detected (Not Detectd) 09/15/20 15:44 Vital Signs Temp 98.1 F 09/20/20 18:16 Pulse 54 L 09/20/20 06:32 Resp 15 09/20/20 06:32 BP 97/57 09/20/20 06:32 Pulse Ox 97 09/15/20 20:45 Patient Condition at Discharge: Stable Plan - Discharge Summary Discharge Rx Participant: No New Discharge Prescriptions: New Nicotine 14Mg/24Hr Patch [Habitrol] 1 patch TRANSDERM DAILY 14 Days patch Paliperidone [Invega] 3 mg PO BID 30 Days tab.er.24 levETIRAcetam [Keppra] 500 mg PO BID 30 Days tab Melatonin 10 mg PO HS 30 Days tablet Ibuprofen [Motrin] 800 mg PO TID PRN 30 Days tab PRN Reason: Mild To Moderate Pain Vortioxetine Hydrobromide [Trintellix] 10 mg PO DAILY 30 Days tablet Acetaminophen Tab [Tylenol] 650 mg PO Q6HR PRN 30 Days tab PRN Reason: Pain/Discomfort hydrOXYzine pamoate [Vistaril] 50 mg PO BID PRN 30 Days cap PRN Reason: Anxiety Discontinued levETIRAcetam [Keppra] 500 mg PO BID 7 Days #14 tab Discharge Medication List Acetaminophen Tab [Tylenol] 650 mg PO Q6HR PRN 30 Days tab 09/21/20 [Rx] Ibuprofen [Motrin] 800 mg PO TID PRN 30 Days tab 09/21/20 [Rx] Melatonin 10 mg PO HS 30 Days tablet 09/21/20 [Rx] Nicotine 14Mg/24Hr Patch [Habitrol] 1 patch TRANSDERM DAILY 14 Days patch 09/21/20 [Rx] Paliperidone [Invega] 3 mg PO BID 30 Days tab.er.24 09/21/20 [Rx] Vortioxetine Hydrobromide [Trintellix] 10 mg PO DAILY 30 Days tablet 09/21/20 [Rx] hydrOXYzine pamoate [Vistaril] 50 mg PO BID PRN 30 Days cap 09/21/20 [Rx] levETIRAcetam [Keppra] 500 mg PO BID 30 Days tab 09/21/20 [Rx] Follow up Appointment(s)/Referral(s): intake,intake [Other] - 09/21/20 9:00 am (Pt intake 09/21/20 at 9 am. ) Mare Pretty MD [Primary Care Provider] - 1-2 days Activity/Diet/Wound Care/Special Instructions: Activity and diet as tolerated. Avoid the use of street drugs and alcohol. Take all medications as prescribed. When you are in need of refills on your medications please contact your medical provider and/or outpatient psychiatrist to have this done. Please go to scheduled outpatient appointment for aftercare treatment. If symptoms return or become worse, call the crisis line at and/or go to the nearest emergency room for evaluation. Discharge Disposition: OTHER INSTITUTION NOT DEFINED
== END 2020-09-21 08:50 | DRG 885 ==
LOC: EC 14:40 → 3MHU 20:14
PROVIDERS: ADMIT Psychiatry & Neurology Psychiatry; ATTEND Psychiatry & Neurology Psychiatry
DX: F33.3 Major depressive disorder, recurrent, severe with psychotic symptoms (principal); F41.9 Anxiety disorder, unspecified; G40.909 Epilepsy, unspecified, not intractable, without status epilepticus; G47.00 Insomnia, unspecified; T40.1X2A Poisoning by heroin, intentional self-harm, initial encounter; T43.622A Poisoning by amphetamines, intentional self-harm, initial encounter; E86.0 Dehydration; F11.10 Opioid abuse, uncomplicated; F15.10 Other stimulant abuse, uncomplicated; F17.210 Nicotine dependence, cigarettes, uncomplicated; Z86.19 Personal history of other infectious and parasitic diseases; Z79.899 Other long term (current) drug therapy; Z82.49 Family history of ischemic heart disease and other diseases of the circulatory system; Z86.15 Personal history of latent tuberculosis infection; R74.01 Elevation of levels of liver transaminase levels; N28.9 Disorder of kidney and ureter, unspecified; Z71.51 Drug abuse counseling and surveillance of drug abuser; K21.9 Gastro-esophageal reflux disease without esophagitis; Z20.822 Contact with and (suspected) exposure to COVID-19
CPT/HCPCS: 80053; 80061; 80076; 80306; 81001; 82075; 83036; 84443; 85025; 87635; 99285

== ENCOUNTER 2021-09-24 09:25 | Emergency (ER) | payer OTHER ==
[2021-09-24 09:39] VITALS: BP 133/77; PULSE 103; RESP 18; TEMP 98.3
[2021-09-24] MEDS ORDERED: SULFAMETHOX-TMP 800-160MG 1 EACH TAB PO STA (09:59)
--- NOTE | 2021-09-24 10:18 | ED ---
Skin/Abscess/FB HPI - General Chief complaint: Skin/Abscess/Foreign Body Stated complaint: Leg abcess Time Seen by Provider: 09/24/21 09:46 Source: patient, RN notes reviewed Mode of arrival: ambulatory Limitations: no limitations - History of Present Illness Initial comments: This is a pleasant 35-year-old male with a history of polysubstance abuse. Has been injecting heroin into his bilateral lower legs for several days. He states about 3 days ago he started getting redness to both legs. He states he also has some swelling. He denies any pain. No fever or chills. He states she feels well otherwise. Patient does have a history of MRSA. No headache, no fever or chills, no changes in vision or hearing, no sore throat or difficulty with speech, no neck pain, no chest pain or shortness of breath, no abdominal pain, no nausea or vomiting, no changes in urination or bowel movements, no numbness or tingling, no extremity pain, no skin rashes or lesions. Onset/Timin -: days(s) Tetanus Up to Date: yes Location: LLE, RLE - Related Data Previous Rx's Medication Instructions Recorded Acetaminophen Tab [Tylenol] 650 mg PO Q6HR PRN 30 Days tab 09/21/20 Ibuprofen [Motrin] 800 mg PO TID PRN 30 Days tab 09/21/20 Melatonin 10 mg PO HS 30 Days tablet 09/21/20 Nicotine 14Mg/24Hr Patch [Habitrol] 1 patch TRANSDERM DAILY 14 Days 09/21/20 patch Paliperidone [Invega] 3 mg PO BID 30 Days tab.er.24 09/21/20 Vortioxetine Hydrobromide 10 mg PO DAILY 30 Days tablet 09/21/20 [Trintellix] hydrOXYzine pamoate [Vistaril] 50 mg PO BID PRN 30 Days cap 09/21/20 levETIRAcetam [Keppra] 500 mg PO BID 30 Days tab 09/21/20 Sulfamethox-Tmp 800-160Mg [Bactrim 1 tab PO Q12HR #20 tab 09/24/21 DS 800-160 mg] Allergies Allergy/AdvReac Type Severity Reaction Status Date / Time No Known Allergies Allergy Verified 09/15/20 16:29 Review of Systems ROS Statement: Those systems with pertinent positive or pertinent negative responses have been documented in the HPI. ROS Other: All systems not noted in ROS Statement are negative. Past Medical History Past Medical History: GERD/Reflux, Liver Disease, Seizure Disorder Additional Past Medical History / Comment(s): polysubstance drug abuse, hepatitis C, latent TB History of Any Multi-Drug Resistant Organisms: MRSA Date of last positivie culture/infection: 2010 MDRO Source:: RIGHT FOREARM Past Surgical History: Orthopedic Surgery Additional Past Surgical History / Comment(s): right elbow Past Anesthesia/Blood Transfusion Reactions: No Reported Reaction Past Psychological History: Anxiety, Depression Smoking Status: Current every day smoker Past Alcohol Use History: None Reported Past Drug Use History: Cocaine, Heroin, IV Drug Use, Methamphetamine, Opiates - Past Family History Father Additional Family Medical History / Comment(s): Father is alive at age 58 with no major medical problems of the patient is aware of. Mother Family Medical History: Hypertension Additional Family Medical History / Comment(s): Mother has history of hypertension and is age 57. Patient has 2 brothers and 2 sisters with no major medical problems. General Exam - General Exam Comments Initial Comments: Patient does not appear to be alert toxic. No distress. Limitations: no limitations General appearance: alert, in no apparent distress Head exam: Present: atraumatic, normocephalic, normal inspection Eye exam: Present: normal appearance, PERRL, EOMI. Absent: scleral icterus, conjunctival injection, periorbital swelling ENT exam: Present: normal exam, mucous membranes moist Neck exam: Present: normal inspection. Absent: tenderness, meningismus, lymphadenopathy Respiratory exam: Present: normal lung sounds bilaterally. Absent: respiratory distress, wheezes, rales, rhonchi, stridor Cardiovascular Exam: Present: regular rate, normal rhythm, normal heart sounds. Absent: systolic murmur, diastolic murmur, rubs, gallop, clicks GI/Abdominal exam: Present: soft, normal bowel sounds. Absent: distended, tenderness, guarding, rebound, rigid Extremities exam: Present: full ROM, normal capillary refill, pedal edema, other (Patient has multiple areas consistent with abrasions and disruptions in skin integrity related to skin popping from heroin abuse. Secondary erythema consistent with cellulitis. No lymphangitis. No inguinal adenopathy. Negative Homans sign bilaterally. Pulses intact. Sensation intact). Absent: tenderness, joint swelling, calf tenderness Back exam: Present: normal inspection Neurological exam: Present: alert, oriented X3, CN II-XII intact Psychiatric exam: Present: normal affect, normal mood Skin exam: Present: warm, dry, intact, normal color. Absent: rash Course Vital Signs 09/24/21 09:35 Temperature 98.3 F Pulse Rate 103 H Respiratory 18 Rate Blood Pressure 133/77 O2 Sat by Pulse 100 Oximetry Medical Decision Making - Medical Decision Making Patient presents with symptoms consistent with cellulitis secondary to skin popping in both lower extremities from heroin use. History of MRSA. We'll treat with Bactrim DS twice daily. Patient looks well otherwise. Does not appear to be ill or toxic. Discussed treatment plan with the patient. All questions answered. She does have bilateral edema. Given the edema I'm going to obtain a venous Doppler to rule out DVT., I do not believe the patient needs any laboratory workup or diagnostics further than this. Patient was told to return to the ER for any signs or symptoms worsen. Told to return immediately if any other problems arise. All questions answered. Treatment plan discussed. Patient in agreement Venous Doppler is negative for DVT. - Radiology Data Radiology results: report reviewed, image reviewed Disposition Clinical Impression: Bilateral cellulitis of lower leg Disposition: HOME SELF-CARE Condition: Good Instructions (If sedation given, give patient instructions): Cellulitis (ED) Additional Instructions: Follow-up with your regular physician as directed. Return to the ER immediately if any symptoms worsen, new symptoms arise, or any other problems develop. Take the antibiotic as directed. Elevate your legs whenever possible. Apply warm compresses for 10-15 minutes at a time 4 times per day. Seek care for substance abuse. Work on smoking cessation. Prescriptions: Sulfamethox-Tmp 800-160Mg [Bactrim DS 800-160 mg] 1 tab PO Q12HR #20 tab Is patient prescribed a controlled substance at d/c from ED?: No Referrals: Mare Pretty MD [Primary Care Provider] - 09/26/21 Time of Disposition: 10:42
--- NOTE | 2021-09-24 10:37 | US ---
EXAMINATION TYPE: US venous doppler duplex LE DATE OF EXAM: 09/24/2021 10:00 AM COMPARISON: NONE CLINICAL HISTORY: Bilateral leg edema. SIDE PERFORMED: Bilateral TECHNIQUE: The lower extremity deep venous system is examined utilizing real time linear array sonog danielle with graded compression, doppler sonography and color-flow sonography. VESSELS IMAGED: Common Femoral Vein Deep Femoral Vein Greater Saphenous Vein * Femoral Vein Popliteal Vein Small Saphenous Vein * Proximal Calf Veins (* superficial vessels) Right Leg: Appears negative for DVT Left Leg: Appears negative for DVT IMPRESSION: Grayscale, color doppler, spectral doppler imaging performed of the deep veins of the lo wer extremities. There is normal flow, compressibility, vascular waveforms.
== END 2021-09-24 10:57 | disposition home or self-care (01) ==
LOC: EC 09:25
DX: L03.116 Cellulitis of left lower limb (principal); L03.115 Cellulitis of right lower limb; G40.909 Epilepsy, unspecified, not intractable, without status epilepticus; K21.9 Gastro-esophageal reflux disease without esophagitis; F41.9 Anxiety disorder, unspecified; F32.A Depression, unspecified; F17.200 Nicotine dependence, unspecified, uncomplicated; F14.90 Cocaine use, unspecified, uncomplicated; F11.90 Opioid use, unspecified, uncomplicated; F15.90 Other stimulant use, unspecified, uncomplicated; Z79.1 Long term (current) use of non-steroidal anti-inflammatories (NSAID); Z79.899 Other long term (current) drug therapy
CPT/HCPCS: 93970; 99283